=== PATIENT | male | born 1950 | race Caucasian/White ===

== ENCOUNTER 2020-08-20 11:57 | Day surgery (SDC) | payer MEDICARE, SELFPAY ==
[2020-08-13 15:03] VITALS: BMI 24.9
--- NOTE | 2020-08-19 08:27 | P.CONAN_ITS ---
Documented by User: Maliha Mark 08/19/20 08:28 HPI - Anesthesia Eval Consult details Narrative: 70yo M for Colonoscopy PMFSH Past Medical History Medical History Arthritis COVID-19 vaccine administered Elevated cholesterol History of trigeminal neuralgia HTN (hypertension) Hx of bipolar disorder Multiple sclerosis Surgical History Surgical History H/O colonoscopy History of surgery Hx of cataract surgery Hx of right knee surgery Social History Social History (Updated 08/20/20 @ 12:32 by Cece Cancino) Housing Other:: lives in skilled nursing community Are you a primary wound care specialist to a significant other at home: No Do you presently have visiting nurse or other home services: No Smoking Status: Current every day smoker Packs Per Day: 1 Cigarettes Per Day: 20.0 Years Smoked: 50 Smoked in Last 30 Days: Yes Use of substances other than those prescribed or required for medical reasons: No Have you been hit, kicked, punched, or otherwise hurt by someone within the past year? If so, by whom?: No Advance Directives Information Provided: No Recently lost weight without trying: No Meds Allergies Allergy/AdvReac Type Severity Reaction Status Date / Time carbamazepine Allergy Intermediate purple rash Verified 08/20/20 12:16 Home Medications Medication Instructions Recorded Confirmed Last Taken Type cholecalciferol (vitamin D3) 125 mcg PO Q7D 08/13/20 08/13/20 Unknown History [Vitamin D3] divalproex [Depakote] 1,000 mg PO BEDTIME 08/13/20 08/13/20 Unknown History glatiramer [Glatopa] 20 mg SUBCUT DAILY 08/13/20 08/13/20 08/20/20 06:00 History lisinopril 20 mg PO BEDTIME 08/13/20 08/13/20 Unknown History oxcarbazepine 450 mg PO TID 08/13/20 08/13/20 08/20/20 06:00 History phenytoin sodium 100 mg PO BEDTIME 08/13/20 08/13/20 Unknown History pregabalin 150 mg PO TID 08/13/20 08/13/20 08/20/20 06:00 History quetiapine [Seroquel] 50 mg PO BEDTIME 08/13/20 08/13/20 Unknown History simvastatin 20 mg PO BEDTIME 08/13/20 08/13/20 Unknown History Exam Exam Date and Time: August 19, 2020 0827 Height,Weight and Vital Signs: Height 5 ft 4 in Weight 65.771 kg Assessment and Plan Assessment Anesthesia Assessment: Chart Reviewed Documented by User: Cece Cancino 08/20/20 12:36 [facility] Past Medical History Medical History Arthritis COVID-19 vaccine administered Elevated cholesterol History of trigeminal neuralgia HTN (hypertension) Hx of bipolar disorder Multiple sclerosis Family History Family history of problems with anesthesia: No Surgical History Surgical History H/O colonoscopy History of surgery Hx of cataract surgery Hx of right knee surgery History of Problems with Anesthesia: No Social History Social History (Updated 08/20/20 @ 12:32 by Cece Cancino) Housing Other:: lives in skilled nursing community Are you a primary wound care specialist to a significant other at home: No Do you presently have visiting nurse or other home services: No Smoking Status: Current every day smoker Packs Per Day: 1 Cigarettes Per Day: 20.0 Years Smoked: 50 Smoked in Last 30 Days: Yes Use of substances other than those prescribed or required for medical reasons: No Have you been hit, kicked, punched, or otherwise hurt by someone within the past year? If so, by whom?: No Advance Directives Information Provided: No Recently lost weight without trying: No Meds Allergies Allergy/AdvReac Type Severity Reaction Status Date / Time carbamazepine Allergy Intermediate purple rash Verified 08/20/20 12:16 Home Medications Medication Instructions Recorded Confirmed Last Taken Type cholecalciferol (vitamin D3) 125 mcg PO Q7D 08/13/20 08/13/20 Unknown History [Vitamin D3] divalproex [Depakote] 1,000 mg PO BEDTIME 08/13/20 08/13/20 Unknown History glatiramer [Glatopa] 20 mg SUBCUT DAILY 08/13/20 08/13/20 08/20/20 06:00 History lisinopril 20 mg PO BEDTIME 08/13/20 08/13/20 Unknown History oxcarbazepine 450 mg PO TID 08/13/20 08/13/20 08/20/20 06:00 History phenytoin sodium 100 mg PO BEDTIME 08/13/20 08/13/20 Unknown History pregabalin 150 mg PO TID 08/13/20 08/13/20 08/20/20 06:00 History quetiapine [Seroquel] 50 mg PO BEDTIME 08/13/20 08/13/20 Unknown History simvastatin 20 mg PO BEDTIME 08/13/20 08/13/20 Unknown History Exam Height,Weight and Vital Signs: Vital Signs Temp Pulse Resp BP Pulse Ox 08/20/20 12:17 96.9 F 68 18 164/98 H 97 Airway Mallampati Class: II TM Dist: >3cm Neck ROM: Full Heart: RRR Lungs: CTAB Assessment and Plan Assessment Anesthesia Assessment: Anesthesia Plan Discussed and Chart Reviewed Final Anesthetic Review NPO: Yes ASA Class: II Final Preanesthetic Review: No Changes in Pt Med Stat, Meds/Allgs Chart Reviewed, Consent Obtained/Reviewed and Anes Risks/Benef Reviewed Patient Risk: Intermediate Procedure Risk: Low Assessment/Block/Sedation in SS: Assess/Block/Sedation-SS Anesthetic Plan Anesthetic Plan: MAC: Disposition: Standard PACU
[2020-08-20 12:17] VITALS: BP 164/98; PULSE 68; RESP 18; TEMP 36.1; O2SAT 97
[2020-08-20] MEDS: Lactated Ringers 1,000 ML 100 ML IVCONT (12:34)
--- NOTE | 2020-08-20 13:00 | MHC.SHP ---
Pre-Procedural Eval Section A The patient is an INPATIENT: No Changes since office visit: No Cold of Flu in the past 2 weeks, No New Medical Problems, No Changes in Medication and No Patient answered all questions The History & Physical has been completed within 30 days and I have reviewed it.: Yes Section B Chief Complaint: screening Allergies: Allergies Allergy/AdvReac Type Severity Reaction Status Date / Time carbamazepine Allergy Intermediate purple rash Verified 08/20/20 12:16 Plan I have reviewed the history and physical and performed a pertinent physical examination on my patient. No changes have occurred unless specified.
--- NOTE | 2020-08-20 13:33 | PM.OP ---
Brief Operative Note Date of Service: 08/20/20 Pre-op diagnosis: screening Post-op diagnosis: same (colon polyps) Procedure: colonoscopy Surgeon: Sanju Colbert Anesthesia: MAC Estimated blood loss (mL): 5 Pathology: other (polyps x3) Condition: stable Disposition: PACU
[2020-08-20 13:41] VITALS: BP 108/57; PULSE 54; RESP 14; TEMP 36.2; O2SAT 96
[2020-08-20 13:58] VITALS: BP 147/75; PULSE 56; RESP 16; TEMP 36.6; O2SAT 96
--- NOTE | 2020-08-20 14:08 | OP_ITS ---
SURGEON: Sanju Colbert MD INDICATIONS: Colon cancer screening and prior history of adenomatous colon polyps. PREOPERATIVE DIAGNOSIS: POSTOPERATIVE DIAGNOSIS: PROCEDURE PERFORMED: Colonoscopy to the terminal ileum with biopsy. ESTIMATED BLOOD LOSS: COMPLICATIONS: ANESTHESIA: ASSISTANTS: SPECIMENS: MEDICATIONS: Monitored anesthesia care. DESCRIPTION OF PROCEDURE: History and physical performed. The risks and benefits of the procedure were explained to the patient. Informed consent was obtained. The patient was placed in left lateral decubitus position. A digital rectal exam was performed and was found to be normal. The Olympus pediatric video colonoscope was introduced into the rectum and advanced to the cecum without difficulty. The cecum was identified by transillumination, palpation, and identification of ileocecal valve. Examination was performed and the scope was removed. He tolerated the procedure well and was taken to recovery area in stable condition. FINDINGS: The terminal ileum was examined and appeared normal. The visualized colonic mucosa was normal. The quality of the prep was good. A total of 3 polyps measuring less than 5 mm were removed with biopsy forceps. Two were located in the cecum, one was at 50 cm. No other polyps were identified. There was mild sigmoid diverticulosis. Retroflexed examination was remarkable for moderate-sized internal hemorrhoids. IMPRESSION: Colon polyps. RECOMMENDATION: Follow up the biopsy results. MD EYAD Summers/MUNIRA / [id number]
== END 2020-08-20 13:00 | disposition home or self-care (01) ==
PROVIDERS: PCP Internal Medicine; Visit Provider Internal Medicine Gastroenterology
PROC: 0DJD8ZZ Inspection of Lower Intestinal Tract, Via Natural or Artificial Opening Endoscopic (ICD-10-PCS; CPT 45378; principal; 2020-08-20 13:00)
DX: Z12.11 Encounter for screening for malignant neoplasm of colon (principal); Z86.010 Personal history of colon polyps; D12.0 Benign neoplasm of cecum; D12.5 Benign neoplasm of sigmoid colon; K57.30 Diverticulosis of large intestine without perforation or abscess without bleeding; K64.8 Other hemorrhoids; G35 Multiple sclerosis; G50.0 Trigeminal neuralgia; I10 Essential (primary) hypertension; F31.9 Bipolar disorder, unspecified; F17.210 Nicotine dependence, cigarettes, uncomplicated; Z79.899 Other long term (current) drug therapy
CPT/HCPCS: 45380; 88305

== ENCOUNTER 2024-01-31 09:02 | Outpatient (AMB) | payer MEDICARE, SELFPAY ==
--- NOTE | 2024-01-31 09:06 | A.OFFVIS_ITS ---
Vital Signs 01/31/24 09:16 Height 5 ft 6 in Weight 119 lb BMI 19.2 BP 153/72 H Blood Pressure Location Rt radial Position Sitting Pulse 75 Intake Visit Reasons: Mass right upper lung Intake Note: Patient referred by pcp Dr. Arroyo for mass on anterior right upper lung lobe. Patient c/o: denies difficulty breathing, SOB. States smokes about half a pack of cigarettes a day. [place] CT: 01-23-2024. 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 Accompanied by: Noemy Minor friend Allergies carbamazepine Allergy (Intermediate, Verified 01/31/24 09:14) purple rash Medication List - Last Reconciled 01/31/24 by Sander Franco MD cholecalciferol (vitamin D3) (Vitamin D3) 125 mcg PO Q7D divalproex (Depakote) 1,000 mg PO BEDTIME glatiramer (Glatopa) 20 mg subcut DAILY lisinopril 20 mg PO BEDTIME oxcarbazepine 450 mg PO TID phenytoin sodium 100 mg PO BEDTIME pregabalin 150 mg PO TID quetiapine (Seroquel) 50 mg PO BEDTIME simvastatin 20 mg PO BEDTIME HPI Comments Details: Patient presents with his significant other for evaluation of recently diagnosed brain mass, right lung mass, mediastinal adenopathy, and adrenal mass on a CT scan at an outside facility. Patient has a longstanding history of over 60 years of a least 1/2-1 pack per day. He denies any chronic cough, hemoptysis, chest pain, wheezing. Patient's energy is somewhat diminished and he has lost 30 lb over the last year or so. His appetite is poor. Chart was reviewed and patient evaluated. Among other comorbidities, patient has had the diagnosis of multiple sclerosis for approximately 6 years. [facility] Medical History COVID-19 vaccine administered Arthritis History of trigeminal neuralgia Hx of bipolar disorder Multiple sclerosis Elevated cholesterol HTN (hypertension) Surgical History History of surgery H/O colonoscopy Hx of cataract surgery Hx of right knee surgery Social History Housing Other:: lives in snf community Are you a primary career coordinator to a significant other at home: No Do you presently have visiting nurse or other home services: No Cigarette Packs Per Day: 1 Cigarettes Per Day: 20.0 Years Smoked: 50 Physical Exam Vital Signs: Last Vital Signs Pulse 75 01/31/24 09:16 BP 153/72 H 01/31/24 09:16 BMI result Body Mass Index 19.2 Const Other: Thin male using cane for assistance in no acute respiratory distress. HEENT Other: No obvious cervical periclavicular or axillary adenopathy bilaterally. Chest Other: Chest breath sounds bilaterally, consistent with COPD. GI Other: Abdomen is soft, benign Assessment & Plan Assessment & Plan (1) Adrenal mass: Code(s): E27.8 - Other specified disorders of adrenal gland Category: Surgical Plan: Patient is unaware of his CT scan findings. I discussed the concern at the lung mass may be a neoplastic process which may have metastasized. With his significant smoking history, this is within the realm of possibilities. The current plan is to arrange for a CT-guided biopsy of the right lung mass as well as a PET scan for staging purposes.. Patient will see me after the above-mentioned interventions and studies and we will direct further therapy based on these results. All questions answered. In the meantime, Patient is strongly encouraged to discontinue his smoking. (2) Brain mass: Code(s): G93.89 - Other specified disorders of brain Category: Surgical Plan: As noted above (3) Mass of right lung: Code(s): R91.8 - Other nonspecific abnormal finding of lung field Category: Surgical Plan: As noted above (4) Mediastinal adenopathy: Code(s): R59.0 - Localized enlarged lymph nodes Category: Surgical Plan See above Orders: Orders CT biopsy lung RT Today E27.8 - Other specified disorders of adrenal gland, G93.89 - Other specified disorders of brain, R91.8 - Other nonspecific abnormal finding of lung field PET CT fusion skull to thigh Today E27.8 - Other specified disorders of adrenal gland, G93.89 - Other specified disorders of brain, R91.8 - Other nonspecific abnormal finding of lung field Coding Level of Care Code New Pt Level 4 (76352) Diagnoses Adrenal mass E27.8 Brain mass G93.89 Mass of right lung R91.8 Mediastinal adenopathy R59.0
[2024-01-31 09:16] VITALS: BP 153/72; PULSE 75; BMI 19.2
== END 2024-01-31 09:33 | disposition home or self-care (01) ==
PROVIDERS: PCP Internal Medicine; Referring Provider Internal Medicine; Visit Provider Surgery
DX: E27.8 Other specified disorders of adrenal gland (principal); G93.89 Other specified disorders of brain; R91.8 Other nonspecific abnormal finding of lung field; R59.0 Localized enlarged lymph nodes
CPT/HCPCS: 99204

== ENCOUNTER → 2024-01-31 09:02 | Outpatient (BNVA) | payer MEDICARE, SELFPAY | PROVIDERS: PCP Internal Medicine; Referring Provider Internal Medicine; Visit Provider Surgery | DX: E27.8 Other specified disorders of adrenal gland (principal); G93.89 Other specified disorders of brain; R91.8 Other nonspecific abnormal finding of lung field; R59.0 Localized enlarged lymph nodes | CPT/HCPCS: 99202 ==

== ENCOUNTER 2024-02-02 08:45 | Outpatient (REF) | payer MEDICARE, SELFPAY | END 2024-02-02 08:46 | disposition home or self-care (01) | LOC: CF 08:45 | DX: Z13.89 Encounter for screening for other disorder (principal) ==

== ENCOUNTER 2024-02-13 08:13 | Day surgery (SDC) | payer MEDICARE, SELFPAY ==
[2024-02-13] VITALS (9 sets, daily range): BP systolic 128–143; BP diastolic 62–69; PULSE 51–63; RESP 16–18; TEMP 36.5–36.6; O2SAT 98–100; BMI 19.0
--- NOTE | ~2024-02-13 | CT_ITS ---
PET avid right upper lobe lung mass. Current smoker. PROCEDURES: 1. Limited preprocedure CT of the chest. Permanent images saved in PACS. 2. CT-guided core biopsy and fine-needle aspiration of the right lung mass. 3. Limited postprocedure CT of the chest. Permanent images saved in PACS. CLINICIANS: Catrachito Thomas PA-C MEDICATIONS: -Versed 1 mg, Fentanyl 50 mcg, and lidocaine 1% 10 mL SQ -Antibiotics: None -For additional details, please see nursing flowsheet. COMPLICATIONS: None ESTIMATED BLOOD LOSS: < 5 ml CONTRAST: None SPECIMENS: 4 x 20 g cores were sent for pathology. 22-gauge fine needle aspiration was sent for cytology. MODERATE SEDATION TIME: 21 min PROCEDURE NOTE: The procedure, risks, benefits, and alternatives were carefully explained to the patient and written informed consent was obtained. The patient was placed supine on the CT table. A timeout was performed. A limited CT of the chest was performed to localize the right lung mass and choose appropriate needle entry and trajectory. The patient was prepped and draped in usual sterile fashion. The skin and deeper soft tissues were anesthetized with lidocaine. Under CT guidance, a19 gague trocar needle was advanced to the right lung mass. A 20 gauge biopsy device was inserted through the trocar needle and advanced into the mass. A total of 4 cores were performed. The specimens were placed in formalin and sent to pathology. Next, a 22-gauge Chiba needle was inserted through the trocar needle and advanced into the mass and an aspiration was performed. The needle was removed. A dry dressing was applied and secured with Tegaderm. A limited postprocedure CT of the chest was performed, which did not demonstrate any pneumothorax or hemothorax. There were no immediate complications. The patient was stable after the procedure and was transferred to the post anesthesia care unit. The procedure was done under moderate sedation with a dedicated nurse for monitoring of vital signs. CT/CT biopsy lung RT Impression: CT-guided right lung mass biopsy and fine-needle aspiration. This procedure was performed by Catrachito Thomas PA-C and supervised by Dr. Davis. Electronically signed by: Kristofer Claire MD 02/22/2024 02:38 PM EDT
--- NOTE | ~2024-02-13 | XR_ITS ---
EXAMINATION: XR CHEST CLINICAL INFORMATION: 1 hour status post right lung biopsy of right lung mass. COMPARISON: CT outside images of 01/23/2024. TECHNIQUE: Frontal view of the chest was obtained and time stamped 02/13/2024 11:51 AM. FINDINGS: There is no gross pneumothorax. Lung volumes are low. Asymmetric elevation of the left lung base. Heart size is normal. No gross pleural effusion. Prominent right upper perihilar opacity/mass is better characterized on CT scan. XR/XR chest 1V IMPRESSION: 1. No gross pneumothorax. 2. Prominent right upper perihilar opacity/mass is better characterized on CT scan. Electronically signed by: Ely Stone MD 04/04/2024 01:02 PM [facility]
--- NOTE | ~2024-02-13 | XR_ITS ---
EXAMINATION: XR CHEST CLINICAL INFORMATION: 1 hour status post right lung biopsy of right lung mass. COMPARISON: CT outside images of 01/23/2024, chest radiograph of 02/13/2024 at 11:51 AM. TECHNIQUE: Frontal view of the chest was obtained and time stamped 02/13/2024 12:53 PM. FINDINGS: There is no gross pneumothorax. Lung volumes are low. Asymmetric elevation of the left lung base. Heart size is normal. No gross pleural effusion. Prominent right upper perihilar opacity/mass is better characterized on CT scan. XR/XR chest 1V IMPRESSION: 1. No gross pneumothorax. 2. Prominent right upper perihilar opacity/mass is better characterized on CT scan. Electronically signed by: Ely Stone MD 04/04/2024 02:05 PM [facility]
[2024-02-13 08:57] LABS: MANUAL DIFF FLAG NO
[2024-02-13 09:04] LABS: Basophils Absolute Auto 0.1 X10*3/uL (0.0-0.2); Basophils Percent Auto 0.7 % (0-2); Eosinophils Absolute Auto 0.1 X10*3/uL (0.0-0.4); Hematocrit 42.3 % (42.0-52.0); Hemoglobin 14.6 g/dl (14.0-18.0); Imm Gran Abs Auto 0.03 X10*3/uL (0.00-0.03); Imm Gran Pct Auto 0.4 % (0.0-0.4); Lymphocytes Absolute Auto 2.2 X10*3/uL (1.2-4.9); Lymphocytes Percent Auto 28.3 % (20-40); Mean Corpuscular HGB Conc 34.5 g/dl (31.0-36.0); Mean Corpuscular Hemoglobin 34.6 pg (27.0-33.0); Mean Corpuscular Volume 100.2 fL (80.0-98.0); Mean Platelet Volume 10.7 fL (9.4-12.4); Monocytes Absolute Auto 0.8 X10*3/uL (0.1-1.2); Monocytes Percent Auto 10.3 % (2-11); Neutrophils Absolute Auto 4.6 x10*3/uL (2.0-8.3); Neutrophils Percent Auto 59.3 % (45-73); Platelet Count 116 X10*3/uL (160-400); Red Blood Count 4.22 X10*6/uL (4.60-5.80); White Blood Count 7.7 X10*3/uL (4.8-10.8)
[2024-02-13 09:08] LABS: INTERNATIONAL NORM RATIO 0.9 (0.9-1.1); Prothrombin Time 11.1 SEC (11.1-13.3)
[2024-02-13 09:11] LABS: Partial Thromboplastin Time 24.2 SEC (26.0-36.8)
--- NOTE | 2024-02-13 10:25 | MHC.SHP ---
Pre-Procedural Eval Section A - 24 Hr Update-Section A only Date of Service: 02/13/24 Section B - Complete if H&P > 30 days Chief Complaint: right upper lobe mass Details of Present Illness: 73 y/o man with a PET avid RUL lung mass Relevant Family History (Specify if Yes): No Relevant Social History: Tobacco Use Present Medications: see Short Stay Collaborative assessment Medical History: Significant History History of Previous Operations: Relevant previous surgery/procedure and date(s) Allergies: Allergies Allergy/AdvReac Type Severity Reaction Status Date / Time carbamazepine Allergy Intermediate purple rash Verified 01/31/24 09:14 Review of Systems Sugical H&P ROS: Negative: Constitution, Cardiovascular, Respiratory and Integumentary Exam Surgical H&P Exam: Normal: Skin and Normal: Neurological and Significant Findings: Heart (bradycardic) and Significant Findings: Lungs (mild expiratory wheezes) Plan CT right lung mass biopsy Time Spent With Patient Time: Total time managing care of this patient today ____ minutes.
== END 2024-02-13 13:16 | disposition home or self-care (01) ==
PROVIDERS: Physician Assistant Surgical; Radiology Vascular & Interventional Radiology; PCP Internal Medicine; Visit Provider Surgery
DX: C7A.1 Malignant poorly differentiated neuroendocrine tumors (principal); C34.11 Malignant neoplasm of upper lobe, right bronchus or lung; R59.0 Localized enlarged lymph nodes; G93.89 Other specified disorders of brain; E27.8 Other specified disorders of adrenal gland; R63.0 Anorexia; R63.4 Abnormal weight loss; Z68.1 Body mass index [BMI] 19.9 or less, adult; R53.83 Other fatigue; G35 Multiple sclerosis; G50.0 Trigeminal neuralgia; I10 Essential (primary) hypertension; E78.00 Pure hypercholesterolemia, unspecified; M19.90 Unspecified osteoarthritis, unspecified site; F31.9 Bipolar disorder, unspecified; Z79.899 Other long term (current) drug therapy; Z99.89 Dependence on other enabling machines and devices; Z88.8 Allergy status to other drugs, medicaments and biological substances; F17.210 Nicotine dependence, cigarettes, uncomplicated; Z98.890 Other specified postprocedural states
CPT/HCPCS: 32408; 36415; 71045; 85025; 85610; 85730; 88173; 88305; 88341; 88342; 99152; J2250; J2310; J3010

== ENCOUNTER → 2024-02-13 09:57 | Outpatient (BNV) | payer MEDICARE, SELFPAY | PROVIDERS: PCP Internal Medicine; Visit Provider Radiology Vascular & Interventional Radiology | DX: Z00.00 Encounter for general adult medical examination without abnormal findings (principal) | CPT/HCPCS: 10009; 32408; 99152 ==

== ENCOUNTER 2024-02-15 10:43 | Outpatient (AMB) | payer MEDICARE, SELFPAY ==
[2024-02-15 10:48] VITALS: BP 144/88; PULSE 64
--- NOTE | 2024-02-15 10:48 | MHC.OFFVIS ---
Vital Signs 02/15/24 10:48 Weight 118 lb BP 144/88 H Blood Pressure Location Rt brachial Position Sitting Pulse 64 Intake Visit Reasons: s/p CT lung BX Intake Note: Patient here to discuss Rt upper lobe CT guided bx results. Patient c/o: tenderness on rt upper chest along bx site. Manager Transportation Planning Required: No Accompanied by: Self / Same As Patient Allergies carbamazepine Allergy (Intermediate, Verified 02/15/24 10:49) purple rash Medication List - Last Reconciled 02/15/24 by Sander Franco MD cholecalciferol (vitamin D3) (Vitamin D3) 125 mcg PO Q7D divalproex (Depakote) 1,000 mg PO BEDTIME glatiramer (Glatopa) 20 mg subcut DAILY lisinopril 20 mg PO BEDTIME oxcarbazepine 450 mg PO TID phenytoin sodium 100 mg PO BEDTIME pregabalin 150 mg PO TID quetiapine (Seroquel) 50 mg PO BEDTIME simvastatin 20 mg PO BEDTIME HPI Comments Details: Patient was status post right upper lobe lung biopsy which was consistent with a [id number] lung cancer. This was discussed with the patient. Patient also had a PET scan which was reviewed with him. Patient had an MRI of the brain at [facility] which we are trying to obtained. According to the patient he had some sort of brain lesion but this did not light up on his PET scan. Patient has a question of mediastinal adenopathy and a left adrenal area of suspicion as well. He has not had pulmonary function tests yet [facility] Medical History (Updated 02/03/24 @ 09:04 by Lakisha Carrizales PA-C) Multiple sclerosis Hx of bipolar disorder History of trigeminal neuralgia HTN (hypertension) Elevated cholesterol Arthritis Nicotine dependence, cigarettes, uncomplicated Tubular adenoma of colon COVID-19 vaccine administered Surgical History (Updated 02/03/24 @ 12:39 by Lakisha Carrizales PA-C) History of colonoscopy History of surgery Hx of cataract surgery Hx of right knee surgery Social History Housing Other:: lives in [facility] community Are you a primary home care consultant to a significant other at home: No Do you presently have visiting nurse or other home services: No Cigarette Packs Per Day: 1 Cigarettes Per Day: 20.0 Years Smoked: 50 Physical Exam Vital Signs: Last Vital Signs Pulse 64 02/15/24 10:48 BP 144/88 H 02/15/24 10:48 Chest Other: Status quo Assessment & Plan Assessment & Plan (1) Mass of right lung: Comment: (mass RUL 3.1x2.2cm - 01/23/24 CT) Code(s): R91.8 - Other nonspecific abnormal finding of lung field Category: Surgical Plan: Current plan is to refer the patient to Oncology as well as obtaining baseline pulmonary function test. I will also present the patient at our lung cancer screening conference for next week (02/23) Orders: Orders PFT pulmonary function test Today R91.8 - Other nonspecific abnormal finding of lung field Coding Level of Care Code Est Pt Level 5 (36373) Diagnoses Mass of right lung R91.8
== END 2024-02-15 10:56 | disposition home or self-care (01) ==
PROVIDERS: PCP Internal Medicine; Visit Provider Surgery
DX: C34.11 Malignant neoplasm of upper lobe, right bronchus or lung (principal)
CPT/HCPCS: 99215

== ENCOUNTER → 2024-02-15 10:43 | Outpatient (BNVA) | payer MEDICARE, SELFPAY | PROVIDERS: PCP Internal Medicine; Visit Provider Surgery | DX: R91.8 Other nonspecific abnormal finding of lung field (principal) | CPT/HCPCS: 99212 ==

== ENCOUNTER → 2024-02-20 10:54 | Outpatient (BNV) | payer MEDICARE, SELFPAY | PROVIDERS: PCP Internal Medicine; Referring Provider Surgery; Visit Provider Internal Medicine Medical Oncology | DX: C34.90 Malignant neoplasm of unspecified part of unspecified bronchus or lung (principal); C79.31 Secondary malignant neoplasm of brain | CPT/HCPCS: 99213 ==

== ENCOUNTER 2024-02-24 13:36 | Outpatient (REF) | payer MEDICARE, SELFPAY ==
--- NOTE | ~2024-02-24 | MR_ITS ---
EXAMINATION: MR BRAIN WITHOUT AND WITH CONTRAST CLINICAL INFORMATION: Lung carcinoma. Intracranial metastatic disease. COMPARISON: No relevant prior imaging. TECHNIQUE: Multiplanar MR imaging of the brain was performed without and with contrast. A total of 5 mL Gadavist was utilized for this examination. FINDINGS: There are multiple ring-enhancing intracranial masses most likely represent metastatic disease in a patient with a known history of a lung carcinoma. There is a small right retromastoid craniotomy site suggesting a history of recent biopsy. The dominant intraparenchymal cystic mass is located within the right cerebellar hemisphere measuring 1.8 cm in diameter. Best visualized on axial image 51 of 176 series 16. The second dominant lesion located within the left periatrial white matter best visualized on axial image 88 and same series measures 1.0 cm in diameter. A right thalamic lesion measures up to 0.9 cm in maximal dimension on axial image 103 of the same series. There are at least 7 additional much smaller and faintly enhancing nodular lesions involving both cerebral hemispheres and cerebellum. There is no substantial intracranial mass effect. No midline shift or hydrocephalus. Midline structures including the cervicomedullary junction are normal. No acute bone marrow signal changes. There is no acute territorial infarct. Intracranial vascular flow voids are grossly maintained. There is a trace right mastoid tip effusion. Trivial mucosal thickening within the abdomen recess of the left maxillary sinus and mild mucosal thickening within the ethmoid air cells. Globes and orbits are symmetric. MR/MR head/brain wo/w con IMPRESSION: There are multiple ring-enhancing intracranial masses most likely representing metastatic disease in a patient with a known history of a lung carcinoma. The dominant lesion is located within the right cerebellar hemisphere measuring 1.8 cm in maximal dimension. The second dominant lesion located within the left periatrial white matter measures 1.0 cm in maximal dimension. A right thalamic lesion measures up to 0.9 cm in maximal dimension. There are at least 7 additional much smaller and faintly enhancing nodular lesions involving both cerebral hemispheres and cerebellum. There are chronic postoperative changes of a right retromastoid craniotomy, potentially related to a biopsy of the dominant right cerebellar mass. Comparison with prior imaging is therefore recommended if available to assess the stability of these lesions. No substantial intracranial mass effect. No midline shift or hydrocephalus. Electronically signed by: Markie Abreu MD 02/24/2024 04:05 PM EDT RP
[2024-02-24] MEDS: gadobutroL 7.5 ML VIAL IVPUSH (14:25)
== END 2024-02-24 13:37 | disposition home or self-care (01) ==
LOC: HO.MRI 13:36
PROVIDERS: PCP Internal Medicine; Visit Provider Internal Medicine Medical Oncology
DX: C79.31 Secondary malignant neoplasm of brain (principal); C34.90 Malignant neoplasm of unspecified part of unspecified bronchus or lung
CPT/HCPCS: 70553; A9585

== ENCOUNTER 2024-03-28 12:22 | Outpatient (REF) | payer MEDICARE, SELFPAY ==
[2024-03-28 10:08] VITALS: PULSE 94; RESP 16; O2SAT 98
--- NOTE | 2024-03-28 13:34 | PFT_ITS ---
Indication: Smoker Spirometry [] FEV1 to FVC in 2%; FEV1 2.33 L; FVC 2.4 L. bronchodilators were not used. Lung Volumes [Unable to achieve maneuvers to perform the lung volumes.] Diffusion Capacity [DLCO 71% predicted] Comparisons [None] Interpretation [No obstructive ventilatory defects. Bronchodilators again were not used. Lung volumes could not be measured. Diffusing capacity is mildly decreased. Could be related to smoking-related diseases. Clinical correlation warranted.] MTDD
== END 2024-03-28 12:23 | disposition home or self-care (01) ==
LOC: HO.RESP 12:22
PROVIDERS: PCP Internal Medicine; Visit Provider Surgery
DX: R91.8 Other nonspecific abnormal finding of lung field (principal)
CPT/HCPCS: 94010; 94640; 94727; 94729

== ENCOUNTER → 2024-03-28 13:34 | Outpatient (BNV) | payer MEDICARE, SELFPAY | PROVIDERS: PCP Internal Medicine; Visit Provider Hospitalist | DX: C34.90 Malignant neoplasm of unspecified part of unspecified bronchus or lung (principal); F17.210 Nicotine dependence, cigarettes, uncomplicated | CPT/HCPCS: 94060; 94729 ==

== ENCOUNTER 2024-05-08 14:00 | Outpatient (REF) | payer MEDICARE, SELFPAY ==
--- NOTE | ~2024-05-08 | CT_ITS ---
EXAMINATION: CT CHEST WITH CONTRAST CLINICAL INFORMATION: Non-small cell lung carcinoma evaluation COMPARISON: 02/13/2024 TECHNIQUE: Multidetector volumetric CT imaging of the chest was obtained after the administration of 65 mL of Omnipaque 350 intravenous contrast without immediate adverse reactions. Axial MIP volume rendering provided. Sagittal and coronal reformatted images were obtained. This CT examination was performed using dose optimization techniques as appropriate, variously including the following: *Automated exposure control *Adjustment of mA and/or kV according to patient size (this includes techniques or standardized protocols for targeted exams where dose is matched to indication/reason for exam; i.e. extremities or head) *Use of iterative reconstruction technique DLP: 73 mGy-cm FINDINGS: CASINO SHIFT MANAGER: Unremarkable LUNGS: Stellate right upper lobe mass extending to the anterior pleural surface measuring 31 x 18 x 26 mm (10/12) with adjacent reticulation and fibrotic change is stable. There is extensive emphysematous change with peripheral bleb formation unchanged. No pneumothorax. No new consolidations. There is a tiny element of nodular scarring or a calcific nodularity in the peripheral mid right lung. No change. MEDIASTINUM: There is normal contrast enhancement in the great vessels of the mediastinum. No pericardial effusion. All mediastinal nodes measuring up to 14 mm particularly in the precarinal space are stable. Moderate coronary artery calcification again seen. PLEURA: There is no pleural effusion. No pleural mass or thickening. AXILLA: No lymphadenopathy. UPPER ABDOMEN: Hepatic steatosis. No change. There is a prominent left adrenal mass. This has increased in size from 01/23/2024. Today the mass measures 26 x 28 mm, and at a similar location and level, did measure 10 x 13 mm. In addition, there is a subtle low density lesion projecting off the superior right kidney at 7 mm not appreciated on the prior study. This could be a small right adrenal lesion off the inferior tail of the right adrenal with extrinsic mass effect on the superior right kidney. It should be followed. Simple cyst in the left kidney and spleen are stable. OSSEOUS STRUCTURES: The thoracic spine is kyphotic with spondylitic change. Sternum intact. No destructive lesions. CT/CT chest w IV con IMPRESSION: Though the dominant right upper lobe mass is stable, there is an enlarging left adrenal mass with a possible small right adrenal metastasis is also suspicious for metastases. I believe a PET/CT would be helpful in this case. Fleischner guidelines were followed. Electronically signed by: Trenton Shannon MD 05/09/2024 03:29 PM TITI NICOLE
[2024-05-08] MEDS: iohexoL 350 MG/ML 100 ML INFUS..BTL IV (14:54)
--- OUTSIDE RECORDS SUMMARY | 2024-05-09 21:53 | XMS_ITS ---
Author Organization [facility] Address [address] [place] [address] Care Team Providers Care Soap Tender Name Role Phone Markie Arroyo DO Primary Care Provider Unavail able Sanju Colbert Jr Unavailable REASON FOR VISIT Patient presents today for a screening colon Encounters Encounter Location Date Provider Diagnosis [facility] [address] [place] [address] 02/27/2024 Sanju Colbert Jr PLAN OF TREATMENT No Information
--- OUTSIDE RECORDS SUMMARY | 2024-05-09 21:53 | XMS_ITS ---
Author Organization Markie Arroyo DO, FACP Address [address] [place], [place] [id number] Care Team Providers Care Senior Licensing Manager Name Role Phone Markie Arroyo Primary Care Provider [phone] ALLERGIES Allergen (clinical drug ingredient) Drug/Non Drug Allergy documented on EMR Reaction Allergy Type Onset Date Status carbamazepine Carbamazepine rash Drug Allergy Active REASON FOR VISIT Follow up Malignant neoplasm of upper lobe of right lung MEDICATIONS Medication SIG (Take, Route, Frequency, Duration) Notes Start Date End Date Status Simvastatin 20 MG 1 tablet in the even ing Orally Once a day Active QUEtiapine Fumarate 50 MG 1 tablet at be dtime Orally Once a day 11/15/2023 Active Divalproex Sodium 500 MG 2 tablets at be dtime Orally Once a day Active Glatopa 20 MG/ML 1 ml Subcutaneous On ce a day Active Vitamin D (Ergocalciferol) 57882 UNIT 1 capsule Orally Once a Week Active SOCIAL HISTORY Tobacco Use: Social History Observation Description Date Details (start date - stop date) Current Smoker NA - NA Sex Assigned At : Social History Observation Description Sex Assigned At Unknown Tobacco Use/Smoking Question Answer Notes Patient is a current smoker How often do you smoke cigarettes? every day How many cigarettes a day do you smoke? 5 or les s How soon after you wake up d o you smoke your first cigarette? after 60 minutes Are you interested in quitting? Ready to quit Additional Findings: Tobacco User Curren t cigarette smoker, not currently using another form of tobacco Alcohol Screen Question Answer Notes Did you have a drink containing alcohol in the p ast year? No Points 0 Interpretation Negative VITAL SIGNS BMI 21.42 kg/m2 04/13/2024 Height 62.75 in 04/13/2024 Weight 120 lbs 04/13/2024 Encounters Encounter Location Date Provider Diagnosis Markie Arroyo , FACP [address], [place] [id number] 04/13/2024 Markie Arroyo Malignant neoplasm o f upper lobe of right lung C34.11 ; Hypercholesterolemia E78.00 ; Vitamin D deficiency E55.9 ; Bipolar disorder, in full remission, most recent episode depressed F31.76 and Multiple sclerosis G35 ASSESSMENTS Encounter Date Diagnosis Assessment Notes Treatment Notes Treatment Clinical Notes 04/13/2024 Malignant neoplasm o f upper lobe of right lung (ICD-10 - C34.11) Follow up with Oncology. Agustín is drinking 2 cans of Ensure a day. 04/13/2024 Hypercholesterolemia (ICD-10 - E78.00) 04/13/2024 Vitamin D deficiency (ICD-10 - E55.9) 04/13/2024 Bipolar disorder, in full remission, most recent episode depressed (ICD-10 - F31.76) 04/13/2024 Multiple sclerosis ( ICD-10 - G35) PLAN OF TREATMENT Medication Medication Name Sig Start Date Stop Date Notes Simvastatin 20 MG 1 tablet in the even ing Orally Once a day QUEtiapine Fumarate 50 MG 1 tablet at be dtime Orally Once a day 11/15/2023 Divalproex Sodium 500 MG 2 tablets at be dtime Orally Once a day Glatopa 20 MG/ML 1 ml Subcutaneous Once a day Vitamin D (Ergocalciferol) 43654 UNIT 1 capsule Orally Once a Week Treatment Notes Assessment Notes Malignant neoplasm of upper lobe of right lung Follow up with Oncology. Agustín is drinking 2 cans of Ensure a day. Next Appt Details Follow Up: 3 Months, Reason: follow up visit Provider Name:Markie bautista, 07/11/2024 09:45:00 AM, [address] [place] [address], [phone], Progress Notes * Examination Category Sub-Category Detail Notes General Examination PSYCH: alert, orien navjot, cognitive function intact History and Physical Notes * HPI (History of Present Illness) Category Sub-Category Detail Notes New symptom(s) Telehealth Location of provider:: Pro vider's home address Location of patient:: Address listed in demographics for today's visit Patient identification confirmed using:: Name, Telehealth method:: Telephone only. Elizabeth ent not visible to care provider. Consent:: Patient verbally c onsented to treatment, Patient verbally consented to billing insurance company, Patient informed of any privacy concerns related to method of visit Total time spent with patient (mins): 24 Disclaimer: This Telehealth visit is being conducted per CDC recommendations due to the COVID-19 outbreak.
--- OUTSIDE RECORDS SUMMARY | 2024-05-09 21:53 | XMS_ITS | Patient Health Record ---
Author Organization Markie Arroyo DO, FACP Address [address] [place], [place] [id number] Care Team Providers Care Nutrition Coordinator Name Role Phone Markie Arroyo Primary Care Provider [phone] ALLERGIES Allergen (clinical drug ingredient) Drug/Non Drug Allergy documented on EMR Reaction Allergy Type Onset Date Status carbamazepine Carbamazepine rash Drug Allergy Active RESULTS Component Value Reference Range Notes Complete Blood Count Auto Di ff Reviewed date:02/13/2024 09:57:09 AM Interpretation:Abnormal Performing Lab:[facility], [address] [place] [phone] Notes/Report: White Blood Count 7.7 4.8-10.8 X10*3/uL Red Blood Count 4.22 4.60-5.80 X10*6/uL Hemoglobin 14.6 14.0-18.0 g/dl Hematocrit 42.3 42.0-52.0 % Mean Corpuscular Volume 100.2 80.0-98.0 fL Mean Corpuscular Hemoglobin 34.6 27.0-33.0 pg Mean Corpuscular HGB Conc 34.5 31.0-36.0 g/dl Red Cell Distribution Width 14.0 11.0-16.0 % Platelet Count 116 160-400 X10*3/uL Mean Platelet Volume 10.7 9.4-12.4 fL Neutrophils Percent Auto 59.3 45-73 % Imm Gran Pct Auto 0.4 0.0-0.4 % Lymphocytes Percent Auto 28.3 20-40 % Monocytes Percent Auto 10.3 2-11 % Eosinophils Percent Auto 1.0 0-4 % Basophils Percent Auto 0.7 0-2 % NRBC Pct Auto 0.0 0.0-0.2 /100WBC Neutrophils Absolute Auto 4.6 2.0-8.3 x10*3/u L Imm Gran Abs Auto 0.03 0.00-0.03 X10*3/uL Lymphocytes Absolute Auto 2.2 1.2-4.9 X10*3/u L Monocytes Absolute Auto 0.8 0.1-1.2 X10*3/uL Eosinophils Absolute Auto 0.1 0.0-0.4 X10*3/u L Basophils Absolute Auto 0.1 0.0-0.2 X10*3/uL NRBC Abs Auto 0.000 0.0-0.012 X10*3/uL Prothrombin Time INR Reviewed date:02/13/2024 09:57:09 AM Interpretation:Normal Performing Lab:[facility], [address] [place] [phone] Notes/Report: Prothrombin Time 11.1 11.1-13.3 SEC INTERNATIONAL NORM RATIO 0.9 0.9-1.1 INTERNATIONAL NORMALIZED RATIO (INR) REFERENCE RANGES Reference Range For patients not on anticoagulant therapy: 0.9 - 1.1 INR ranges for oral anticoagulant therapy: For prevention and treatment of venous thrombosis and pulmonary embolism: 2.0 - 3.0 For acute myocardial infarction with aspirin therapy: 2.0 - 3.0 For acute myocardial infarction without aspirin therapy: 3.0 - 4.0 For patients with mechanical prosthetic heart valves: 2.5 - 3.5 Partial Thromboplastin Time Reviewed date:02/13/2024 09:57:09 AM Interpretation:Low Performing Lab:[facility], [address] [place] [phone] Notes/Report: Partial Thromboplastin Time 24.2 26.0-36.8 SEC For information regarding the monitoring of direct thrombin inhibitors, please refer to Pharmacy. Pathology Reviewed date:02/27/2024 08:39:24 PM Interpretation:Abnormal Performing Lab:[facility], [address] [place] [phone] Notes/Report: CT biopsy lung RT Reviewed date:04/23/2024 01:16:42 PM Interpretation:Abnormal Performing Lab: Notes/Report: [address] [address] [address] Scan Report Signed Patient: Zackery Duran MR#: [id number] 129 : 1950 Acct:[id number] Age/Sex: 73 / M ADM Date: 02/13/24 Loc: HO[facility] Attending Dr: Sander Franco MD Ordering Physician: Sander Franco MD Date of Service: 02/13/24 Procedure(s): CT biopsy lung RT Accession Number(s): [id number] cc: Markie Arroyo DO; Sander Franco MD PET avid right upper lobe lung mass. Current smoker. PROCEDURES: 1. Limited preprocedure CT of the chest. Permanent images saved in PACS. 2. CT-guided core biopsy and fine-needle aspiration of the right lung mass. 3. Limited postprocedure CT of the chest. Permanent images saved in PACS. CLINICIANS: Catrachito Thomas PA-C MEDICATIONS: -Versed 1 mg, Fentanyl 50 mcg, and lidocaine 1% 10 mL SQ -Antibiotics: None -For additional details, please see nursing flowsheet. COMPLICATIONS: None ESTIMATED BLOOD LOSS: < 5 ml CONTRAST: None SPECIMENS: 4 x 20 g cores were sent for pathology. 22-gauge fine needle aspiration was sent for cytology. MODERATE SEDATION TIME: 21 min PROCEDURE NOTE: The procedure, risks, benefits, and alternatives were carefully explained to the patient and written informed consent was obtained. The patient was placed supine on the CT table. A timeout was performed. A limited CT of the chest was performed to localize the right lung mass and choose appropriate needle entry and trajectory. The patient was prepped and draped in usual sterile fashion. The skin and deeper soft tissues were anesthetized with lidocaine. Under CT guidance, a19 gague trocar needle was advanced to the right lung mass. A 20 gauge biopsy device was inserted through the trocar needle and advanced into the mass. A total of 4 cores were performed. The specimens were placed in formalin and sent to pathology. Next, a 22-gauge Chiba needle was inserted through the trocar needle and advanced into the mass and an aspiration was performed. The needle was removed. A dry dressing was applied and secured with Tegaderm. A limited postprocedure CT of the chest was performed, which did not demonstrate any pneumothorax or hemothorax. There were no immediate complications. The patient was stable after the procedure and was transferred to the post anesthesia care unit. The procedure was done under moderate sedation with a dedicated nurse for monitoring of vital signs. CT/CT biopsy lung RT Impression: CT-guided right lung mass biopsy and fine-needle aspiration. This procedure was performed by Catrachito Thomas PA-C and supervised by Dr. Davis. Electronically signed by: Kristofer Claire MD 02/22/2024 02:38 PM EDT RP Dictated By: Kristofer Claire MD Signed By: <Electronically signed by Kristofer Claire MD> 04/23/24 1248 DD/ 1035 TD/TT: 02/13/24 [address] [employer] Supervisor: XR chest 1V Reviewed date:04/04/2024 05:24:36 PM Interpretation:Abnormal Performing Lab: Notes/Report: [address] [address] XRay Report Signed Patient: Zackery Duran MR#: [id number] 129 : 1950 Acct:[id number] Age/Sex: 73 / M ADM Date: 02/13/24 Loc: .[facility] Attending Dr: Sander Franco MD Ordering Physician: Catrachito Thomas Date of Service: 02/13/24 Procedure(s): XR chest 1V Accession Number(s): [id number] cc: Markie Arroyo DO; Catrachito Thomas EXAMINATION: XR CHEST CLINICAL INFORMATION: 1 hour status post right lung biopsy of right lung mass. COMPARISON: CT outside images of 01/23/2024. TECHNIQUE: Frontal view of the chest was obtained and time stamped 02/13/2024 11:51 AM. FINDINGS: There is no gross pneumothorax. Lung volumes are low. Asymmetric elevation of the left lung base. Heart size is normal. No gross pleural effusion. Prominent right upper perihilar opacity/mass is better characterized on CT scan. XR/XR chest 1V IMPRESSION: 1. No gross pneumothorax. 2. Prominent right upper perihilar opacity/mass is better characterized on CT scan. Electronically signed by: Ely Stone MD 04/04/2024 01:02 PM EST RP Dictated By: Ely Stone MD Signed By: <Electronically signed by Ely Stone MD in OV> 04/04/24 1302 DD/ 1155 TD/TT: 02/13/24 [address] [employer] Supervisor: Pathology Reviewed date:02/16/2024 06:47:16 PM Interpretation:Abnormal Performing Lab:[facility], [address] [place] [address] Notes/Report: XR chest 1V Reviewed date:04/04/2024 05:25:29 PM Interpretation:Abnormal Performing Lab: Notes/Report: [facility] [address] [place] [address] XRay Report Signed Patient: Zackery Duran MR#: [id number] 129 : 1950 Acct:[id number] Age/Sex: 73 / M ADM Date: 02/13/24 Loc: .[facility] Attending Dr: Sander Franco MD Ordering Physician: Catrachito Thomas Date of Service: 02/13/24 Procedure(s): XR chest 1V Accession Number(s): [id number] cc: Markie Arroyo DO; Catrachito Thomas EXAMINATION: XR CHEST CLINICAL INFORMATION: 1 hour status post right lung biopsy of right lung mass. COMPARISON: CT outside images of 01/23/2024, chest radiograph of 02/13/2024 at 11:51 AM. TECHNIQUE: Frontal view of the chest was obtained and time stamped 02/13/2024 12:53 PM. FINDINGS: There is no gross pneumothorax. Lung volumes are low. Asymmetric elevation of the left lung base. Heart size is normal. No gross pleural effusion. Prominent right upper perihilar opacity/mass is better characterized on CT scan. XR/XR chest 1V IMPRESSION: 1. No gross pneumothorax. 2. Prominent right upper perihilar opacity/mass is better characterized on CT scan. Electronically signed by: Ely Stone MD 04/04/2024 02:05 PM EST RP Dictated By: Ely Stone MD Signed By: <Electronically signed by Ely Stone MD in OV> 04/04/24 1405 DD/ 1300 TD/TT: 02/13/24 [address] Supervisor: Complete Blood Count Auto Di ff Reviewed date:02/20/2024 01:08:32 PM Interpretation:Abnormal Performing Lab:[facility], [address] [place] [phone] Notes/Report: White Blood Count 7.5 4.8-10.8 X10*3/uL Red Blood Count 4.42 4.60-5.80 X10*6/uL Hemoglobin 15.0 14.0-18.0 g/dl Hematocrit 44.0 42.0-52.0 % Mean Corpuscular Volume 99.5 80.0-98.0 fL Mean Corpuscular Hemoglobin 33.9 27.0-33.0 pg Mean Corpuscular HGB Conc 34.1 31.0-36.0 g/dl Red Cell Distribution Width 13.4 11.0-16.0 % Platelet Count 130 160-400 X10*3/uL Mean Platelet Volume 10.4 9.4-12.4 fL Neutrophils Percent Auto 65.7 45-73 % Imm Gran Pct Auto 0.3 0.0-0.4 % Lymphocytes Percent Auto 23.0 20-40 % Monocytes Percent Auto 10.1 2-11 % Eosinophils Percent Auto 0.4 0-4 % Basophils Percent Auto 0.5 0-2 % NRBC Pct Auto 0.0 0.0-0.2 /100WBC Neutrophils Absolute Auto 4.9 2.0-8.3 x10*3/u L Imm Gran Abs Auto 0.02 0.00-0.03 X10*3/uL Lymphocytes Absolute Auto 1.7 1.2-4.9 X10*3/u L Monocytes Absolute Auto 0.8 0.1-1.2 X10*3/uL Eosinophils Absolute Auto 0.0 0.0-0.4 X10*3/u L Basophils Absolute Auto 0.0 0.0-0.2 X10*3/uL NRBC Abs Auto 0.000 0.0-0.012 X10*3/uL Comprehensive Met. Panel Reviewed date:02/20/2024 01:08:32 PM Interpretation:Abnormal Performing Lab:[facility], [address] [place] [phone] Notes/Report: Sodium 141 135-145 mmol/L Potassium 5.4 3.3-5.1 mmol/L Chloride 111 96-108 mmol/L Carbon Dioxide 27 22-29 mmol/L Anion Gap 8 12-20 Blood Urea Nitrogen 14 9-16 mg/dL Creatinine 0.83 0.5-1.4 mg/dL Creatinine Clr Calc Pharmacy 61.9 eGFR (calculated from the MDRD study equation) and eCrCl (calculated from the Cockcroft-Gault equation) are based on different parameters and may not yield comparable results. If eCrCl result is absurd, please check patient's height/weight. Estimated Glomerular Filt Rate > 60 NOTE: For -Niue[place] individuals, multiply the result by 1.210. Chronic Kidney Disease: Estimated GFR < 60 mL/min/1.73m2 Severe Kidney Disease: Estimated GFR < 15 mL/min/1.73m2 Glucose Random 106 60-115 mg/dL Calcium 9.3 8.4-10.2 mg/dL Bilirubin Total 0.6 0.0-1.0 mg/dL Aspartate Amino Transferase 24 5-37 U/L Alanine Aminotransferase 18 0-40 U/L Total Protein 6.6 6.5-8.0 g/dL Albumin Level 3.7 3.5-5.0 g/dL Alkaline Phosphatase 60 39-117 U/L Lactate Dehydrogenase Reviewed date:02/20/2024 01:08:32 PM Interpretation:Normal Performing Lab:[facility], [address] [place] [phone] Notes/Report: Lactate Dehydrogenase 172 118-273 U/L Carcinoembryonic Antigen Reviewed date:02/20/2024 01:08:32 PM Interpretation:Normal Performing Lab:[facility], [address] [place] [phone] Notes/Report: Carcinoembryonic Antigen 2.50 CEA Reference Range: 93.4% Non-Smokers = 0.0-3.0 ng/mL 95.6% Smokers = 0.0-5.0 ng/mL CEA Methodology: Thao Alinity i Chemiluminescent Microparticle Immunoassay (CMIA) CEA testing can have significant value in monitoring of patients with diagnosed malignancies in whom changing concentrations of CEA are observed. Values obtained with different assay methods cannot be used interchangeably. Hepatitis B,C Profile Reviewed date:02/20/2024 01:08:32 PM Interpretation:Negative Performing Lab:[facility], [address] [place] [phone] Notes/Report: Hepatitis B Surface Antibody NONREACTIVE Nonreactive Nonreactive: < 8.00 mIU/mL Hepatitis B Core Antibody Nonreactive Nonreactive Hepatitis C Antibody Nonreactive Nonreactive Antibodies to HCV not detected; does not exclude early acute HCV infection. Hepatitis B Surface Antigen Negative Negative MR head/brain wo/w con Reviewed date:02/24/2024 04:23:41 PM Interpretation:Abnormal Performing Lab: Notes/Report: [address] [address] Magnetic Resonance Report Signed Patient: Zackery Duran MR#: [id number] 129 : 1950 Acct:[id number] Age/Sex: 73 / M ADM Date: 02/24/24 Loc: HO.MRI Attending Dr: Florencia Gipson MD Ordering Physician: Florencia Gipson MD Date of Service: 02/24/24 Procedure(s): MR head/brain wo/w con Accession Number(s): [id number] cc: Markie Arroyo DO; Florencia Gipson MD EXAMINATION: MR BRAIN WITHOUT AND WITH CONTRAST CLINICAL INFORMATION: Lung carcinoma. Intracranial metastatic disease. COMPARISON: No relevant prior imaging. TECHNIQUE: Multiplanar MR imaging of the brain was performed without and with contrast. A total of 5 mL Gadavist was utilized for this examination. FINDINGS: There are multiple ring-enhancing intracranial masses most likely represent metastatic disease in a patient with a known history of a lung carcinoma. There is a small right retromastoid craniotomy site suggesting a history of recent biopsy. The dominant intraparenchymal cystic mass is located within the right cerebellar hemisphere measuring 1.8 cm in diameter. Best visualized on axial image 51 of 176 series 16. The second dominant lesion located within the left periatrial white matter best visualized on axial image 88 and same series measures 1.0 cm in diameter. A right thalamic lesion measures up to 0.9 cm in maximal dimension on axial image 103 of the same series. There are at least 7 additional much smaller and faintly enhancing nodular lesions involving both cerebral hemispheres and cerebellum. There is no substantial intracranial mass effect. No midline shift or hydrocephalus. Midline structures including the cervicomedullary junction are normal. No acute bone marrow signal changes. There is no acute territorial infarct. Intracranial vascular flow voids are grossly maintained. There is a trace right mastoid tip effusion. Trivial mucosal thickening within the abdomen recess of the left maxillary sinus and mild mucosal thickening within the ethmoid air cells. Globes and orbits are symmetric. MR/MR head/brain wo/w con IMPRESSION: There are multiple ring-enhancing intracranial masses most likely representing metastatic disease in a patient with a known history of a lung carcinoma. The dominant lesion is located within the right cerebellar hemisphere measuring 1.8 cm in maximal dimension. The second dominant lesion located within the left periatrial white matter measures 1.0 cm in maximal dimension. A right thalamic lesion measures up to 0.9 cm in maximal dimension. There are at least 7 additional much smaller and faintly enhancing nodular lesions involving both cerebral hemispheres and cerebellum. There are chronic postoperative changes of a right retromastoid craniotomy, potentially related to a biopsy of the dominant right cerebellar mass. Comparison with prior imaging is therefore recommended if available to assess the stability of these lesions. No substantial intracranial mass effect. No midline shift or hydrocephalus. Electronically signed by: Markie Abreu MD 02/24/2024 04:05 PM EDT Dictated By: Markie Abreu MD Signed By: <Electronically signed by Markie Abreu MD in OV> 02/24/24 1605 DD/ 1422 TD/TT: 02/24/24 [address] [employer] Supervisor: RH Complete Blood Count Auto Di ff Reviewed date:05/07/2024 10:09:39 AM Interpretation:Abnormal Performing Lab:[facility], [address] [place] [phone] Notes/Report: White Blood Count 5.9 4.8-10.8 X10*3/uL Red Blood Count 4.10 4.60-5.80 X10*6/uL Hemoglobin 14.0 14.0-18.0 g/dl Hematocrit 41.1 42.0-52.0 % Mean Corpuscular Volume 100.2 80.0-98.0 fL Mean Corpuscular Hemoglobin 34.1 27.0-33.0 pg Mean Corpuscular HGB Conc 34.1 31.0-36.0 g/dl Red Cell Distribution Width 13.2 11.0-16.0 % Platelet Count 91 160-400 X10*3/uL Mean Platelet Volume 10.3 9.4-12.4 fL Neutrophils Percent Auto 55.8 45-73 % Imm Gran Pct Auto 0.3 0.0-0.4 % Lymphocytes Percent Auto 31.4 20-40 % Monocytes Percent Auto 9.9 2-11 % Eosinophils Percent Auto 1.9 0-4 % Basophils Percent Auto 0.7 0-2 % NRBC Pct Auto 0.0 0.0-0.2 /100WBC Neutrophils Absolute Auto 3.3 2.0-8.3 x10*3/u L Imm Gran Abs Auto 0.02 0.00-0.03 X10*3/uL Lymphocytes Absolute Auto 1.8 1.2-4.9 X10*3/u L Monocytes Absolute Auto 0.6 0.1-1.2 X10*3/uL Eosinophils Absolute Auto 0.1 0.0-0.4 X10*3/u L Basophils Absolute Auto 0.0 0.0-0.2 X10*3/uL NRBC Abs Auto 0.000 0.0-0.012 X10*3/uL Comprehensive Met. Panel Reviewed date:05/07/2024 10:09:39 AM Interpretation:Abnormal Performing Lab:[facility], [address] [place] [phone] Notes/Report: Sodium 142 135-145 mmol/L Potassium 5.0 3.3-5.1 mmol/L Chloride 109 96-108 mmol/L Carbon Dioxide 28 22-29 mmol/L Anion Gap 10 12-20 Blood Urea Nitrogen 27 9-16 mg/dL Creatinine 0.87 0.5-1.4 mg/dL Creatinine Clr Calc Pharmacy 54.7 eGFR (calculated from the MDRD study equation) and eCrCl (calculated from the Cockcroft-Gault equation) are based on different parameters and may not yield comparable results. If eCrCl result is absurd, please check patient's height/weight. Estimated Glomerular Filt Rate > 60 Chronic Kidney Disease: Estimated GFR < 60 mL/min/1.73m2 Severe Kidney Disease: Estimated GFR < 15 mL/min/1.73m2 Glucose Random 106 60-115 mg/dL Calcium 9.6 8.4-10.2 mg/dL Bilirubin Total 0.5 0.0-1.0 mg/dL Aspartate Amino Transferase 35 5-37 U/L Alanine Aminotransferase 17 0-40 U/L Total Protein 6.7 6.5-8.0 g/dL Albumin Level 3.8 3.5-5.0 g/dL Alkaline Phosphatase 42 39-117 U/L Hold Gold Reviewed date:05/07/2024 10:09:39 AM Interpretation:Hold Performing Lab:[facility], [address] [place] [phone] Notes/Report: Hold Gold See Note Specimen held untested for 24 hours; Call to request Chemistry testing. CT chest w con Reviewed date:05/09/2024 04:22:51 PM Interpretation:Abnormal Performing Lab: Notes/Report: [address] [address] [address] Scan Report Signed Patient: Zackery Duran MR#: [id number] 129 : 1950 Acct:[id number] Age/Sex: 73 / M ADM Date: 05/08/24 Loc: HO.CT Attending Dr: Florencia Gipson MD Ordering Physician: Florencia Gipson MD Date of Service: 05/08/24 Procedure(s): CT chest w IV con Accession Number(s): [id number] cc: Markie Arroyo DO; Florencia Gipson MD EXAMINATION: CT CHEST WITH CONTRAST CLINICAL INFORMATION: Non-small cell lung carcinoma evaluation COMPARISON: 02/13/2024 TECHNIQUE: Multidetector volumetric CT imaging of the chest was obtained after the administration of 65 mL of Omnipaque 350 intravenous contrast without immediate adverse reactions. Axial MIP volume rendering provided. Sagittal and coronal reformatted images were obtained. This CT examination was performed using dose optimization techniques as appropriate, variously including the following: *Automated exposure control *Adjustment of mA and/or kV according to patient size (this includes techniques or standardized protocols for targeted exams where dose is matched to indication/reason for exam; i.e. extremities or head) *Use of iterative reconstruction technique DLP: 73 mGy-cm FINDINGS: [employer]: Unremarkable LUNGS: Stellate right upper lobe mass extending to the anterior pleural surface measuring 31 x 18 x 26 mm (5/16) with adjacent reticulation and fibrotic change is stable. There is extensive emphysematous change with peripheral bleb formation unchanged. No pneumothorax. No new consolidations. There is a tiny element of nodular scarring or a calcific nodularity in the peripheral mid right lung. No change. MEDIASTINUM: There is normal contrast enhancement in the great vessels of the mediastinum. No pericardial effusion. All mediastinal nodes measuring up to 14 mm particularly in the precarinal space are stable. Moderate coronary artery calcification again seen. PLEURA: There is no pleural effusion. No pleural mass or thickening. AXILLA: No lymphadenopathy. UPPER ABDOMEN: Hepatic steatosis. No change. There is a prominent left adrenal mass. This has increased in size from 01/23/2024. Today the mass measures 26 x 28 mm, and at a similar location and level, did measure 10 x 13 mm. In addition, there is a subtle low density lesion projecting off the superior right kidney at 7 mm not appreciated on the prior study. This could be a small right adrenal lesion off the inferior tail of the right adrenal with extrinsic mass effect on the superior right kidney. It should be followed. Simple cyst in the left kidney and spleen are stable. OSSEOUS STRUCTURES: The thoracic spine is kyphotic with spondylitic change. Sternum intact. No destructive lesions. CT/CT chest w IV con IMPRESSION: Though the dominant right upper lobe mass is stable, there is an enlarging left adrenal mass with a possible small right adrenal metastasis is also suspicious for metastases. I believe a PET/CT would be helpful in this case. Fleischner guidelines were followed. Electronically signed by: Trenton Shannon MD 05/09/2024 03:29 PM [facility] Dictated By: Trenton Shannon MD Signed By: <Electronically signed by Trenton Shannon MD in OV> 05/09/24 1529 DD/ 1437 TD/TT: 05/08/24 [address] [employer] Supervisor: REASON FOR REFERRAL Reason Mass of upper lobe o f right lung Diagnosis 1 Mass of upper lobe o f right lung (R91.8) Referral Organization Markie Bentley O, FACP Referring Provider First Name Markie Referring Provider Last Name Cruz Referring Provider Speciality Internal M edicine Referred Provider Sander Franco Referred Provider Specialty Surgery General Notes Milagro Cardenas 024 03:23:28 PM EDT > ADDITIONAL RECORDS TO FOLLOW BY SEPARATE FAX., Milagro Cardenas 01/25/2024 03:34:56 PM EDT > additional records faxed.Ronald Joan 01/25/2024 04:48:49 PM EDT > patient notified. Referral Priority Routine Referral Appointment Date 01/31/2024 MEDICATIONS Medication SIG (Take, Route, Frequency, Duration) Notes Start Date End Date Status Simvastatin 20 MG 1 tablet in the even ing Orally Once a day Active QUEtiapine Fumarate 50 MG 1 tablet at be dtime Orally Once a day 11/15/2023 Active Divalproex Sodium 500 MG 2 tablets at be dtime Orally Once a day Active Glatopa 20 MG/ML 1 ml Subcutaneous On a day Active Vitamin D (Ergocalciferol) 16133 UNIT 1 capsule Orally Once a Week Active IMMUNIZATIONS Vaccine Route Administration Date Status Comme nts TDaP IM Intramuscular 08/11/2012 Administered Pneumococcal - PPSV23 Unknown 06/14/2013 Administered Influenza Unknown 03/10/2015 Administered Influenza Unknown 03/03/2016 Administered Influenza Quad IM Intramuscular 02/10/2018 Administered Influenza Quad IM Intramuscular 03/28/2019 Administered Influenza High Dose IM Intramuscular 01/14/2020 Administer ed Influnza High Dose Quad Unknown 02/10/2021 Administered COVID-19 Moderna Vaccine Unknown 09/16/2021 Administere d COVID-19 Moderna Vaccine Unknown 04/24/2021 Administere d COVID-19 Moderna Vaccine Unknown 09/16/2020 Administere d COVID-19 Moderna Vaccine Unknown 08/19/2020 Administere d Flu-aIIV4 Unknown 02/03/2022 Administered Shingrix Unknown 04/21/2022 Administered COVID-19 Moderna Bivalent Unknown 02/07/2022 Administer ed Shingrix Unknown 06/28/2022 Administered Influnza High Dose Quad Unknown 02/10/2023 Administered SOCIAL HISTORY Tobacco Use: Social History Observation [...] Ready to quit Additional Findings: Tobacco User Catie t cigarette smoker, not currently using another form of tobacco Alcohol Screen Question Answer Notes Did you have a drink containing alcohol in the p ast year? No Points 0 Interpretation Negative PROBLEMS Problem Type ICD Code Onset Dates Problem Status W/U Status Risk SNOMED Code Notes Problem Vitamin D deficiency (E55.9) Active confirmed 39748674 Problem Bipolar disorder, in full remission, most recent episode depressed (F31.76) Active confirmed 21744075 Problem Multiple sclerosis (G35) Active confirmed 11507106 Problem Trigeminal neuralgia (G50.0) Active confirmed 26140271 Problem Essential hypertensi on (I10) Active confirmed 32137564 Problem Hypercholesterolemia (E78.00) Active confirmed 57738304 Problem Malignant neoplasm o f upper lobe of right lung (C34.11) Active confirmed 452489443 VITAL SIGNS Blood pressure diastolic 62 mm Hg 02/28/2024 Height 62.75 in 04/13/2024 Blood pressure systolic 122 mm Hg 02/28/2024 Weight 120 lbs 04/13/2024 BMI 21.42 kg/m2 04/13/2024 Encounters Encounter Location Date Provider Diagnosis Markie Arroyo DO, [facility] [address] [place], [place] [phone] 06/14/2023 Markie Arroyo DO, [facility] [address] [place], [place] [id number] 05/17/2023 Markie Arroyo Bipolar disorder, in full remission, most recent episode depressed F31.76 ; Essential hypertension I10 ; Hypercholesterolemia E78.00 ; Multiple sclerosis G35 and Vitamin D deficiency E55.9 Markie Arroyo DO, [facility] [address] [place], [place] [id number] 11/15/2023 Markie Arroyo Bipolar disorder, in full remission, most recent episode depressed F31.76 ; Vitamin D deficiency E55.9 ; Essential hypertension I10 ; Hypercholesterolemia E78.00 and Multiple sclerosis G35 Markie Arroyo DO, [facility] [address] [place], [place] [id number] 01/11/2024 Markie Arroyo Essential hypertensi on I10 ; Hypercholesterolemia E78.00 ; Vitamin D deficiency E55.9 ; Multiple sclerosis G35 ; Bipolar disorder, in full remission, most recent episode depressed F31.76 and Weight loss, unintentional R63.4 Markie Arroyo DO, [facility] [address] [place], [place] [id number] 02/28/2024 Markie Arroyo Malignant neoplasm o f upper lobe of right lung C34.11 ; Bipolar disorder, in full remission, most recent episode depressed F31.76 ; Essential hypertension I10 ; Multiple sclerosis G35 ; Hypercholesterolemia E78.00 and Vitamin D deficiency E55.9 Markie Arroyo DO, [facility] [address] [place], [place] [id number] 04/11/2024 Markie Arroyo DO, [facility] [address] [place], [place] [id number] 11/15/2023 Markie Arroyo DO, [facility] [address] [place], [place] [id number] 04/13/2024 Markie Arroyo Malignant neoplasm o f upper lobe of right lung C34.11 ; Hypercholesterolemia E78.00 ; Vitamin D deficiency E55.9 ; Bipolar disorder, in full remission, most recent episode depressed F31.76 and Multiple sclerosis G35 Markie Michael Cruz CELIS, [facility] [address] [place], [place] [id number] 01/25/2024 Markie Arroyo Mass of upper lobe o f right lung R91.8 ; Essential hypertension I10 ; Hypercholesterolemia E78.00 ; Multiple sclerosis G35 ; Vitamin D deficiency E55.9 and Bipolar disorder, in full remission, most recent episode depressed F31.76 ASSESSMENTS Encounter Date Diagnosis Assessment Notes Treatment Notes Treatment Clinical Notes 05/17/2023 Bipolar disorder, in full remission, most recent episode depressed (ICD-10 - F31.76) 05/17/2023 Essential hypertensi on (ICD-10 - I10) 11/15/2023 Vitamin D deficiency (ICD-10 - E55.9) 11/15/2023 Bipolar disorder, in full remission, most recent episode depressed (ICD-10 - F31.76) Will follow platelet count 01/11/2024 Essential hypertensi on (ICD-10 - I10) 01/11/2024 Hypercholesterolemia (ICD-10 - E78.00) 02/28/2024 Bipolar disorder, in full remission, most recent episode depressed (ICD-10 - F31.76) 02/28/2024 Malignant neoplasm o f upper lobe of right lung (ICD-10 - C34.11) Follow up with Oncology 04/13/2024 Hypercholesterolemia (ICD-10 - E78.00) 04/13/2024 Malignant neoplasm o f upper lobe of right lung (ICD-10 - C34.11) Follow up with Oncology. Agustín is drinking 2 cans of Ensure a day. 01/25/2024 Essential hypertensi on (ICD-10 - I10) 01/25/2024 Mass of upper lobe o f right lung (ICD-10 - R91.8) 05/17/2023 Hypercholesterolemia (ICD-10 - E78.00) 11/15/2023 Essential hypertensi on (ICD-10 - I10) 01/11/2024 Vitamin D deficiency (ICD-10 - E55.9) 02/28/2024 Essential hypertensi on (ICD-10 - I10) Stop lisinopril due to elevated potassium. Low salt diet. 04/13/2024 Vitamin D deficiency (ICD-10 - E55.9) 01/25/2024 Hypercholesterolemia (ICD-10 - E78.00) 05/17/2023 Multiple sclerosis (ICD-10 - G35) Follow up with Neurology 11/15/2023 Hypercholesterolemia (ICD-10 - E78.00) 01/11/2024 Multiple sclerosis (ICD-10 - G35) 02/28/2024 Multiple sclerosis (ICD-10 - G35) 04/13/2024 Bipolar disorder, in full remission, most recent episode depressed (ICD-10 - F31.76) 01/25/2024 Multiple sclerosis (ICD-10 - G35) 05/17/2023 Vitamin D deficiency (ICD-10 - E55.9) 11/15/2023 Multiple sclerosis (ICD-10 - G35) 01/11/2024 Bipolar disorder, in full remission, most recent episode depressed (ICD-10 - F31.76) 02/28/2024 Hypercholesterolemia (ICD-10 - E78.00) 04/13/2024 Multiple sclerosis (ICD-10 - G35) 01/25/2024 Vitamin D deficiency (ICD-10 - E55.9) 01/11/2024 Weight loss, unintentional (ICD-10 - R63.4) Neurology has ordered CT scan of chest, abdomen, and pelvis, to assess for possible occult malignacy, as suggested by the recent MRI of the brain. Agustín had a normal PSA last April, and is seeing GI in January. His last colonoscopy was in 2020. 02/28/2024 Vitamin D deficiency (ICD-10 - E55.9) 01/25/2024 Bipolar disorder, in full remission, most recent episode depressed (ICD-10 - F31.76) PLAN OF TREATMENT Next Appt Details Provider Name:Markie Rodriguez Amy bautista, 07/11/2024 09:45:00 AM, [address] [place] [address], [phone], Insurance Providers Payer Name Payer Address Payer Phone Subscriber Number Group Number Insured Name Patient Relationship to Insured Coverage Start Date Coverage End Date [facility] [address] [place], [place] [phone] [id number] Zackery Duran Self - patient is the insured MEDICAL (GENERAL) HISTORY Medical History History ICD Code hypertension hypercholesterolemia vitamin D deficiency bipolar affective disorder chronic sleep disorder alcoholism, 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
--- OUTSIDE RECORDS SUMMARY | 2024-05-09 21:53 | XMS_ITS ---
Author Organization Markie Arroyo DO, FACP Address [address] [place], [place] [phone] Care Team Providers Care Diamond Mounter Name Role Phone Markie Arroyo Primary Care Provider REASON FOR VISIT 6 week f/u Encounters Encounter Location Date Provider Diagnosis Markie Arroyo DO, FACP [address] [place], [place] [phone] 04/11/2024 Markie Arroyo PLAN OF TREATMENT Next Appt Details Provider Name:Markie bautista, 07/11/2024 09:45:00 AM, [address] [place], [place], [phone],
--- OUTSIDE RECORDS SUMMARY | 2024-05-09 21:53 | XMS_ITS ---
Author Organization Markie Arroyo DO, FACP Address [address] [place], [place] [id number] Care Team Providers Care [employer] Officer Name Role Phone Markie Arroyo Primary Care Provider [phone] ALLERGIES Allergen (clinical drug ingredient) Drug/Non Drug Allergy documented on EMR Reaction Allergy Type Onset Date Status carbamazepine Carbamazepine rash Drug Allergy Active REASON FOR VISIT 2 month f/u, Follow up Malignant neoplasm of upper lobe of right lung MEDICATIONS Medication SIG (Take, Route, Frequency, Duration) Notes Start Date End Date Status QUEtiapine Fumarate 50 MG 1 tablet at be dtime Orally Once a day 11/15/2023 Active Divalproex Sodium 500 MG 2 tablets at be dtime Orally Once a day Active Glatopa 20 MG/ML 1 ml Subcutaneous On ce a day Active Vitamin D (Ergocalciferol) 41394 UNIT 1 capsule Orally Once a Week Active Simvastatin 20 MG 1 tablet in the even ing Orally Once a day Active SOCIAL HISTORY Tobacco Use: Social History Observation Description Date Details (start date - stop date) Current Smoker NA - NA Sex Assigned At : Social History Observation Description Sex Assigned At Unknown Tobacco Use/Smoking Question Answer Notes Patient is a current smoker How often do you smoke cigarettes? every day How many cigarettes a day do you smoke? 6-10 How soon after you wake up d o you smoke your first cigarette? after 60 minutes Are you interested in quitting? Thinking about q uitting Additional Findings: Tobacco User Curren t cigarette smoker, not currently using another form of tobacco Alcohol Screen Question Answer Notes Did you have a drink containing alcohol in the p ast year? No Points 0 Interpretation Negative PROBLEMS Problem Type ICD Code Onset Dates Problem Status W/U Status Risk SNOMED Code Notes Problem Malignant neoplasm of upper lobe of right lung (C34.11) Active confirmed 951980416 VITAL SIGNS BMI 21.78 kg/m2 02/28/2024 Blood pressure systolic 122 mm Hg 02/28/20 24 Blood pressure diastolic 62 mm Hg 024 Height 62.75 in 02/28/2024 Weight 122 lbs 02/28/2024 Encounters Encounter Location Date Provider Diagnosis Markie Rodriguez Cruz DO, [facility] [address] [place], [place] [phone] 02/28/2024 Markie Boldenman Malignant neoplasm o f upper lobe of right lung C34.11 ; Bipolar disorder, in full remission, most recent episode depressed F31.76 ; Essential hypertension I10 ; Multiple sclerosis G35 ; Hypercholesterolemia E78.00 and Vitamin D deficiency E55.9 ASSESSMENTS Encounter Date Diagnosis Assessment Notes Treatment Notes Treatment Clinical Notes 02/28/2024 Malignant neoplasm o f upper lobe of right lung (ICD-10 - C34.11) Follow up with Oncology 02/28/2024 Bipolar disorder, in full remission, most recent episode depressed (ICD-10 - F31.76) 02/28/2024 Essential hypertensi on (ICD-10 - I10) Stop lisinopril due to elevated potassium. Low salt diet. 02/28/2024 Multiple sclerosis ( ICD-10 - G35) 02/28/2024 Hypercholesterolemia (ICD-10 - E78.00) 02/28/2024 Vitamin D deficiency (ICD-10 - E55.9) PLAN OF TREATMENT Medication Medication Name Sig Start Date Stop Date Notes QUEtiapine Fumarate 50 MG 1 tablet at be dtime Orally Once a day 11/15/2023 Divalproex Sodium 500 MG 2 tablets at be dtime Orally Once a day Glatopa 20 MG/ML 1 ml Subcutaneous Once a day Vitamin D (Ergocalciferol) 25876 UNIT 1 capsule Orally Once a Week Simvastatin 20 MG 1 tablet in the even ing Orally Once a day Lisinopril 20 MG 1 tablet Orally Once a day Treatment Notes Assessment Notes Malignant neoplasm of upper lobe of right lung Follow up with Oncology Essential hypertension Stop lisinopril d ue to elevated potassium. Low salt diet. Next Appt Details Follow Up: 6 Weeks, Reason: follow up visit Provider Name:Markie Reyes michele, 07/11/2024 09:45:00 AM, [address] [place] [address], [phone], Progress Notes * Examination Category Sub-Category Detail Notes General Examination GENERAL APPEARANCE: in no ac beverly distress, well developed, well nourished HEAD: normocephalic, atrau matic HEART: no murmurs, regular rate and rhythm, S1, S2 normal LUNGS: clear to auscultatio n bilaterally ABDOMEN: normal, bowel sounds present, soft, nontender, nondistended SKIN: warm and dry EXTREMITIES: no edema PSYCH: alert, oriented, cog nitive function intact History and Physical Notes * HPI (History of Present Illness) Category Sub-Category Detail Notes Depression Screening PHQ-9 Little inte rest or pleasure in doing things: Not at all Feeling down, depressed, or hopeless: No t at all Trouble falling or staying asleep, or sl eeping too much: Not at all Feeling tired or having little energy: N ot at all Poor appetite or overeating: Not at all Feeling bad about yourself o r that you are a failure, or have let yourself or your family down: Not at all Trouble concentrating on thi ngs, such as reading the newspaper or watching television: Not at all Moving or speaking so slowly that other people could have noticed; or the opposite, being so fidgety or restless that you have been moving around a lot more than usual: Not at all Thoughts that you would be b melyssa off or of hurting yourself in some way: Not at all Total Score: 0 Interpretation and Intervention Depression Mónica verma Findings: Negative Follow-Up for Depression: : Review of PH Q-9 found negative result; no follow-up needed Fall Risk Fall History Have you had two or more fal ls in the past year?: No Have you had any falls with injury in th e past year?: No Fall Risk Assessment:: No falls in the p ast year
--- OUTSIDE RECORDS SUMMARY | 2024-05-09 21:53 | XMS_ITS ---
Author Organization [facility] Address [address] [place] [address] Care Team Providers Care Evaporator Helper Name Role Phone Markie Arroyo DO Primary Care Provider Unavail able Sanju Colbert Jr [phone] REASON FOR VISIT cancel appt Encounters Encounter Location Date Provider Diagnosis [facility] [address] [place] [address] 02/21/2024 Sanju Colbert Jr PLAN OF TREATMENT No Information
--- OUTSIDE RECORDS SUMMARY | 2024-05-09 21:54 | XMS_ITS | Patient Health Record ---
Author Organization [facility] Address [address] [place] [address] Care Team Providers Care Neuropsychology Medical Consultant Name Role Phone Markie Arroyo DO Primary Care Provider Unavail able Sanju Colbert Jr Unavailable ALLERGIES Allergen (clinical drug ingredient) Drug/Non Drug Allergy documented on EMR Reaction Allergy Type Onset Date Status carbamazepine Carbamazepine Unknown Drug Allergy Active REASON FOR REFERRAL No Information MEDICATIONS Medication SIG (Take, Route, Frequency, Duration) Notes Start Date End Date Status OXcarbazepine 450 mg 3x a day Active Depakote 1000mg Acti ve Lisinopril 20 MG Orally Act savi Vitamin D2 5,000 ut Active Glatopa 20 MG/ML Subcutaneous Active Phenytoin 100 MG/4ML Orally Active Simvastatin 20 MG Orally Ac tive MiraLax (colon prep) 8.3 ounce ((238) grams mixed with Gatorade or Crystal Light orally begin at 5:00 p.m. the day before the procedure for 1 day 07/30/2020 Active SEROquel 50mg Active IMMUNIZATIONS Vaccine Route Administration Date Status Comme nts Influenza Unknown 03/05/2020 Administered SOCIAL HISTORY Tobacco Use: Social History Observation Description Date Details (start date - stop date) Current Smoker NA - NA Sex Assigned At : Social History Observation Description Sex Assigned At Unknown Tobacco Use/Smoking Question Answer Notes Patient is a current smoker How often do you smoke cigarettes? every day How many cigarettes a day do you smoke? 11-20 How soon after you wake up do you smoke your fir st cigarette? 6-30 minutes Are you interested in quitting? Not ready to temo t PROBLEMS Problem Type ICD Code Onset Dates Problem Status W/U Status Risk SNOMED Code Notes Problem Colon cancer screening (Z12.11) Active confirmed 673934278 Problem Personal history of colonic polyps (Z86.010) Active confirmed 206969784 Problem Encounter for other preprocedural examination (Z01.818) Active confirmed 90032717 Encounters Encounter Location Date Provider Diagnosis [facility] [address] [place] [phone] 02/27/2024 Sanju Colbert Jr [facility] [address] [place] [phone] 02/21/2024 Sanju Colbert Jr PLAN OF TREATMENT Future Test Test Name Order Date COLONOSCOPY 06/26/2015 COLONOSCOPY 07/30/2020 Insurance Providers Payer Name Payer Address Payer Phone Subscriber Number Group Number Insured Name Patient Relationship to Insured Coverage Start Date Coverage End Date [facility] [address] [place] [address] [id number] RONALD HERRING Self - patient is the insured MEDICAL (GENERAL) HISTORY Medical History History ICD Code Bipolar disorder insomnia elevated cholesterol multiple sclerosis hypertension trigeminal neuralgia Surgical History Surgery Date(Month/Year) right knee surgery Glycerol Rhizotomy, right 07/2020
== END 2024-05-08 14:01 | disposition home or self-care (01) ==
LOC: HO.CT 14:00
PROVIDERS: PCP Internal Medicine; Visit Provider Internal Medicine Medical Oncology
DX: C34.90 Malignant neoplasm of unspecified part of unspecified bronchus or lung (principal)
CPT/HCPCS: 71260; Q9967

== ENCOUNTER → 2024-06-07 12:55 | Outpatient (BNV) | payer MEDICARE, SELFPAY | PROVIDERS: PCP Internal Medicine; Visit Provider Radiology Diagnostic Radiology | DX: C79.31 Secondary malignant neoplasm of brain (principal) | CPT/HCPCS: 70553 ==

== ENCOUNTER 2024-06-07 12:58 | Outpatient (REF) | payer MEDICARE, SELFPAY ==
--- NOTE | ~2024-06-07 | MR_ITS ---
EXAMINATION: MR BRAIN WITHOUT AND WITH CONTRAST CLINICAL INFORMATION: Brain metastasis. Status post radiation. Primary lung cancer. COMPARISON: MRI dated February 24, 2024. TECHNIQUE: Multiplanar, multisequence MRI of the brain was obtained before and after the intravenous administration of 5 mL Gadavist without reported immediate complications. FINDINGS: Infratentorial compartment: Right cerebellar hemisphere: There is an intra-axial, 23 mm peripheral thick capsule enhancing nonrestricted hyperintense T1 and hyperintense T2 FLAIR lesion with hyperintense T2 FLAIR perilesional vasogenic edema. There is an intra-axial 9 mm peripherally enhancing hypointense T1 and hyperintense T2 FLAIR lesion, anterior inferior right cerebellum. No perilesional vasogenic edema. There is an intra-axial 11 mm septated peripheral enhancing lesion in the posterior medial right cerebellum with minimal perilesional vasogenic edema. There is a 5 mm peripheral enhancing mixed solid and cystic components lesion in the posterior superior medial right cerebellum. There is a 3 mm enhancing lesion in the medial right cerebellum near the dentate nucleus. There are a few subtle and scattered 2 mm enhancing lesions in the cerebellum folia posterior inferior aspect. Left cerebellar hemisphere: There is an 11 mm peripheral enhancing cystic lesion in the inferior left aspect with hyperintense T2 FLAIR perilesional vasogenic edema. There is a 7 mm homogeneously enhancing lesion in the deep white matter of the left cerebellum without perilesional vasogenic edema. Supratentorial compartment: Right cerebral hemisphere: 9 mm heterogeneous enhancing solid morphology pattern lesion centered in the pulvinar of the right thalamus with hyperintense T2 FLAIR perilesional vasogenic edema.. There is a 4 mm enhancing lesion in the deep white matter of the right orbital frontal gyrus without perilesional vasogenic edema. There is a 4 mm enhancing lesion in the deep white matter of the right parietal region near the right precentral gyrus. There is an 11 mm peripheral enhancing cystic lesion and the cortical subcortical right frontal region near the right middle frontal gyrus with perilesional hyperintense T2 FLAIR signal. There is a 4 mm enhancing lesion in the subcortical right frontal gyrus. Left cerebral hemisphere: There is a 19 mm peripheral enhancing cystic lesion left temporal the point matter near the middle temporal gyrus with the hyperintense T2 FLAIR perilesional vasogenic edema. There is an 8 mm peripheral enhancing cystic lesion in the cortical subcortical left precuneus with minimal perilesional vasogenic edema.. There are multifocal patchy hyperintense T2 FLAIR signal abnormalities involving the cerebellar and cerebral deep white matters some related to the described enhancing lesions. No restricted diffusion to suggest acute stroke/nonhemorrhagic ischemia. No acute intracranial hemorrhage, midline shift, hydrocephalus or herniation. Flow-void signal within the main cerebral vessels is normal. Prominence of the extra-axial CSF spaces cerebral sulci and ventricles. Sellar/suprasellar region demonstrated no gross masses. Craniocervical junction is intact and normal. MR/MR head/brain wo/w con IMPRESSION: Overall worsening metastatic disease with the larger lesions and perilesional vasogenic edema. Electronically signed by: Juliano Rutherford MD 06/07/2024 02:48 PM EST
[2024-06-07] MEDS: gadobutroL 7.5 ML VIAL IVPUSH (14:13)
--- OUTSIDE RECORDS SUMMARY | 2024-06-07 14:39 | XMS_ITS ---
Author Organization Markie Arroyo DO, FACP Address [address] [place], [place] [id number] Care Team Providers Care Machine Room Operator Name Role Phone Markie Arroyo Primary Care Provider ALLERGIES Allergen (clinical drug ingredient) Drug/Non Drug [...] ce a day Active Vitamin D (Ergocalciferol) 89716 UNIT 1 capsule Orally Once a Week [...] Location Date Provider Diagnosis Markie Arroyo , [address] [phone] 04/13/2024 Markie Arroyo Malignant neoplasm o f [...] Subcutaneous Once a day Vitamin D (Ergocalciferol) 61639 UNIT 1 capsule Orally Once a Week Treatment Notes Assessment Notes Malignant neoplasm of upper lobe of right lung Follow up with Oncology. Agustín is drinking 2 cans of Ensure a day. Next Appt Details Follow Up: 3 Months, Reason: follow up visit Progress Notes * Examination Category Sub-Category Detail Notes General Examination PSYCH: alert, orien navjot, cognitive function intact History and Physical Notes * HPI (History of Present Illness) Category Sub-Category Detail Notes New symptom(s) Telehealth Location of provider:: Pro coriner's home address Location of patient:: Address listed [...]
--- OUTSIDE RECORDS SUMMARY | 2024-06-07 14:40 | XMS_ITS | Patient Health Record ---
Author Organization [facility] Address [address] [place] [id number] Care Team Providers Care Studio Model Name Role Phone Markie Arroyo DO Primary Care Provider Unavail able Sanju Colbert Jr Unavailable [phone] ALLERGIES Allergen (clinical drug ingredient) Drug/Non Drug [...] Problem Colon cancer screening (Z12.11) Active confirmed 164274392 Problem Personal history of colonic polyps (Z86.010) Active confirmed 393251632 Problem Encounter for other preprocedural examination (Z01.818) Active confirmed [id number] Encounters Encounter Location Date Provider Diagnosis [facility] [address] [place] [phone] 02/27/2024 Sanju Colbert Jr [facility] [address] [place] [phone] 02/21/2024 Sanju Colbert Jr PLAN OF TREATMENT Future Test Test Name Order Date COLONOSCOPY 06/26/2015 COLONOSCOPY 07/30/2020 Insurance Providers Payer Name Payer Address Payer Phone Subscriber Number Group Number Insured Name Patient Relationship to Insured Coverage Start Date Coverage End Date [employer] [address] [place] [address] [phone] [id number] RONALD HERRING Self - patient is the insured MEDICAL (GENERAL) HISTORY Medical History History ICD Code Bipolar disorder insomnia elevated cholesterol multiple sclerosis hypertension trigeminal neuralgia Surgical History Surgery Date(Month/Year) right knee surgery Glycerol Rhizotomy, right 07/2020
--- OUTSIDE RECORDS SUMMARY | 2024-06-07 14:40 | XMS_ITS ---
Author Organization [facility] Address [address] [place] [address] Care Team Providers Care Cloth Doubling Machine Operator Name Role Phone Markie Arroyo DO Primary Care Provider Unavail able Sanju Colbert Jr REASON FOR VISIT cancel appt Encounters Encounter Location Date Provider Diagnosis [facility] [address] [place] [address] 02/21/2024 Sanju Colbert Jr PLAN OF TREATMENT No Information
--- OUTSIDE RECORDS SUMMARY | 2024-06-07 14:40 | XMS_ITS | Patient Health Record ---
Author Organization Markie Arroyo DO, FACP Address [address] [place], [place] [id number] Care Team Providers Care Form Setter Supervisor Name Role Phone Markie Arroyo Primary Care Provider ALLERGIES Allergen (clinical drug ingredient) Drug/Non Drug Allergy documented on EMR Reaction Allergy Type Onset Date Status carbamazepine Carbamazepine rash Drug Allergy Active RESULTS Component Value Reference Range Notes Complete Blood Count Auto Di ff Reviewed date:02/13/2024 09:57:09 AM Interpretation:Abnormal Performing Lab:[facility], [address] [place] [phone] Notes/Report: White Blood Count 7.7 4.8-10.8 X10*3/uL [...] INR Reviewed date:02/13/2024 09:57:09 AM Interpretation:Normal Performing Lab:[facility], [address] [place] [phone] Notes/Report: Prothrombin Time 11.1 11.1-13.3 SEC INTERNATIONAL [...] Time Reviewed date:02/13/2024 09:57:09 AM Interpretation:Low Performing Lab:[facility], [address] [place] [phone] Notes/Report: Partial Thromboplastin Time 24.2 26.0-36.8 SEC For information regarding the monitoring of direct thrombin inhibitors, please refer to Pharmacy. Pathology Reviewed date:02/27/2024 08:39:24 PM Interpretation:Abnormal Performing Lab:[facility], [address] [place] [phone] Notes/Report: CT biopsy lung RT Reviewed date:04/23/2024 01:16:42 PM Interpretation:Abnormal Performing Lab: Notes/Report: [address] [address] [address] Scan Report Signed Patient: Zackery Duran MR#: [id number] 129 : 1950 Acct:[id number] Age/Sex: 73 / M ADM Date: 02/13/24 Loc: HO.[facility] Attending Dr: Sander Franco MD Ordering Physician: Sander Franco MD Date of Service: 02/13/24 Procedure(s): CT biopsy lung RT Accession Number(s): [id number] cc: Markie Arroyo DO; Sander Franco MD [...] 04/23/24 1248 DD/ 1035 TD/TT: 02/13/24 1115 Infant Childcare Provider: XR chest 1V Reviewed date:04/04/2024 05:24:36 PM Interpretation:Abnormal Performing Lab: Notes/Report: [address] [address] XRay Report Signed Patient: Zackery Duran MR#: [id number] 129 : 1950 Acct:[id number] Age/Sex: 73 / M ADM Date: 02/13/24 Loc: .[facility] Attending Dr: Sander Franco MD Ordering Physician: Catrachito Thomas Date of Service: 02/13/24 Procedure(s): XR chest 1V Accession Number(s): [id number] cc: Markie Arroyo DO; Catrachito Thomas EXAMINATION: [...] 04/04/24 1302 DD/ 1155 TD/TT: 02/13/24 1159 Infant Childcare Provider: Pathology Reviewed date:02/16/2024 06:47:16 PM Interpretation:Abnormal Performing Lab:[facility], [address] [place] [address] Notes/Report: XR chest 1V Reviewed date:04/04/2024 05:25:29 PM Interpretation:Abnormal Performing Lab: Notes/Report: [facility] [address] [place] [address] XRay Report Signed Patient: Zackery Duran MR#: [id number] 129 : 1950 Acct:[id number] Age/Sex: 73 / M ADM Date: 02/13/24 Loc: .[facility] Attending Dr: Sander Franco MD Ordering Physician: Catrachito Thomas Date of Service: 02/13/24 Procedure(s): XR chest 1V Accession Number(s): [id number] cc: Markie Arroyo DO; Catrachito Thomas EXAMINATION: [...] 04/04/24 1405 DD/ 1300 TD/TT: 02/13/24 1300 Infant Childcare Provider: Complete Blood Count Auto Di ff Reviewed date:02/20/2024 01:08:32 PM Interpretation:Abnormal Performing Lab:[facility], [address] [place] [phone] Notes/Report: White Blood Count 7.5 4.8-10.8 X10*3/uL [...] Panel Reviewed date:02/20/2024 01:08:32 PM Interpretation:Abnormal Performing Lab:[facility], [address] [place] [phone] Notes/Report: Sodium 141 135-145 mmol/L Potassium 5.4 [...] Glomerular Filt Rate > 60 NOTE: For -[place] Islander individuals, multiply the result by 1.210. Chronic [...] Dehydrogenase Reviewed date:02/20/2024 01:08:32 PM Interpretation:Normal Performing Lab:[facility], [address] [place] [phone] Notes/Report: Lactate Dehydrogenase 172 118-273 U/L Carcinoembryonic Antigen Reviewed date:02/20/2024 01:08:32 PM Interpretation:Normal Performing Lab:[facility], [address] [place] [phone] Notes/Report: Carcinoembryonic Antigen 2.50 CEA Reference Range: [...] Profile Reviewed date:02/20/2024 01:08:32 PM Interpretation:Negative Performing Lab:[facility], [address] [place] [phone] Notes/Report: Hepatitis B Surface Antibody NONREACTIVE Nonreactive Nonreactive: < 8.00 mIU/mL Hepatitis B Core Antibody Nonreactive Nonreactive Hepatitis C Antibody Nonreactive Nonreactive Antibodies to HCV not detected; does not exclude early acute HCV infection. Hepatitis B Surface Antigen Negative Negative MR head/brain wo/w con Reviewed date:02/24/2024 04:23:41 PM Interpretation:Abnormal Performing Lab: Notes/Report: [address] [address] Magnetic Resonance Report Signed Patient: Zackery Duran MR#: [id number] 129 : 1950 Acct:[id number] Age/Sex: 73 / M ADM Date: 02/24/24 Loc: HO.MRI Attending Dr: Florencia Gipson MD Ordering Physician: Florencia Gipson MD Date of Service: 02/24/24 Procedure(s): MR head/brain wo/w con Accession Number(s): [id number] cc: Markie Arroyo DO; Florencia Gipson MD [...] 02/24/24 1605 DD/ 1422 TD/TT: 02/24/24 1422 Infant Childcare Provider: RH Complete Blood Count Auto Di ff Reviewed date:05/07/2024 10:09:39 AM Interpretation:Abnormal Performing Lab:[facility], [address] [place] [phone] Notes/Report: White Blood Count 5.9 4.8-10.8 X10*3/uL [...] Panel Reviewed date:05/07/2024 10:09:39 AM Interpretation:Abnormal Performing Lab:[facility], [address] [place] [phone] Notes/Report: Sodium 142 135-145 mmol/L Potassium 5.0 [...] Gold Reviewed date:05/07/2024 10:09:39 AM Interpretation:Hold Performing Lab:[facility], [address] [place] [phone] Notes/Report: Hold Gold See Note Specimen held untested for 24 hours; Call to request Chemistry testing. CT chest w con Reviewed date:05/09/2024 04:22:51 PM Interpretation:Abnormal Performing Lab: Notes/Report: [address] [address] [address] Scan Report Signed Patient: Zackery Duran MR#: [id number] 129 : 1950 Acct:[id number] Age/Sex: 73 / M ADM Date: 05/08/24 Loc: HO.CT Attending Dr: Florencia Gipson MD Ordering Physician: Florencia Gipson MD Date of Service: 05/08/24 Procedure(s): CT chest w IV con Accession Number(s): [id number] cc: Markie Arroyo DO; Florencia Gipson MD [...] iterative reconstruction technique DLP: 73 mGy-cm FINDINGS: WOODYARD OPERATOR: Unremarkable LUNGS: Stellate right upper lobe mass [...] by: Trenton Shannon MD 05/09/2024 03:29 PM [facility] Dictated By: Trenotn Shannon MD Signed By: <Electronically signed by Trenton Shannon MD in OV> 05/09/24 1529 DD/ 1437 TD/TT: 05/08/24 1453 Infant Childcare Provider: Complete Blood Count Auto Di ff Reviewed date:05/17/2024 12:19:14 PM Interpretation:Abnormal Performing Lab:[facility], [address] [place] [phone] Notes/Report: White Blood Count 6.3 4.8-10.8 X10*3/uL Red Blood Count 3.84 4.60-5.80 X10*6/uL Hemoglobin 13.2 14.0-18.0 g/dl Hematocrit 38.1 42.0-52.0 % Mean Corpuscular Volume 99.2 80.0-98.0 fL Mean Corpuscular Hemoglobin 34.4 27.0-33.0 pg Mean Corpuscular HGB Conc 34.6 31.0-36.0 g/dl Red Cell Distribution Width 13.2 11.0-16.0 % Platelet Count 124 160-400 X10*3/uL Mean Platelet Volume 10.2 9.4-12.4 fL Neutrophils Percent Auto 66.8 45-73 % Imm Gran Pct Auto 0.5 0.0-0.4 % Lymphocytes Percent Auto 20.7 20-40 % Monocytes Percent Auto 10.6 2-11 % Eosinophils Percent Auto 0.8 0-4 % Basophils Percent Auto 0.6 0-2 % NRBC Pct Auto 0.0 0.0-0.2 /100WBC Neutrophils Absolute Auto 4.2 2.0-8.3 x10*3/u L Imm Gran Abs Auto 0.03 0.00-0.03 X10*3/uL Lymphocytes Absolute Auto 1.3 1.2-4.9 X10*3/u L Monocytes Absolute Auto 0.7 0.1-1.2 X10*3/uL Eosinophils Absolute Auto 0.1 0.0-0.4 X10*3/u L Basophils Absolute Auto 0.0 0.0-0.2 X10*3/uL NRBC Abs Auto 0.000 0.0-0.012 X10*3/uL Comprehensive Met. Panel Reviewed date:05/17/2024 12:45:51 PM Interpretation:Abnormal Performing Lab:[facility], [address] [place] [phone] Notes/Report: Sodium 143 135-145 mmol/L Potassium 5.5 3.3-5.1 mmol/L Chloride 110 96-108 mmol/L Carbon Dioxide 29 22-29 mmol/L Anion Gap 10 12-20 Blood Urea Nitrogen 23 9-16 mg/dL Creatinine 0.90 0.5-1.4 mg/dL Creatinine Clr Calc Pharmacy 52.2 eGFR (calculated from the MDRD study equation) and eCrCl (calculated from the Cockcroft-Gault equation) are based on different parameters and may not yield comparable results. If eCrCl result is absurd, please check patient's height/weight. Estimated Glomerular Filt Rate > 60 Chronic Kidney Disease: Estimated GFR < 60 mL/min/1.73m2 Severe Kidney Disease: Estimated GFR < 15 mL/min/1.73m2 Glucose Random 134 60-115 mg/dL Calcium 9.2 8.4-10.2 mg/dL Bilirubin Total 0.6 0.0-1.0 mg/dL Aspartate Amino Transferase 35 5-37 U/L Alanine Aminotransferase 14 0-40 U/L Total Protein 6.5 6.5-8.0 g/dL Albumin Level 3.6 3.5-5.0 g/dL Alkaline Phosphatase 39 39-117 U/L Liver Panel Reviewed date:05/17/2024 12:45:51 PM Interpretation:Normal Performing Lab:[facility], [address] [place] [phone] Notes/Report: Bilirubin Direct 0.2 0.0-0.5 mg/dL Amylase Reviewed date:05/17/2024 12:45:51 PM Interpretation:Normal Performing Lab:[facility], [address] [place] [phone] Notes/Report: Amylase 57 28-100 U/L Lipase Reviewed date:05/17/2024 12:45:51 PM Interpretation:Normal Performing Lab:[facility], [address] [place] [phone] Notes/Report: Lipase 16 8-78 U/L Thyroid Stimulating Hormone Reviewed date:05/17/2024 12:45:51 PM Interpretation:Normal Performing Lab:[facility], [address] [place] [phone] Notes/Report: Thyroid Stimulating Hormone 3.36 0.32-4.0 uIU/ mL Note: A sustained TSH level above 2.5 uIU/mL may warrant further investigation. TSH 3rd Generation ([facility]) Complete Blood Count Auto Di ff Reviewed date:06/01/2024 12:52:10 PM Interpretation:Reviewed by Dr Jacobo Performing Lab:[facility], [address] [place] [phone] Notes/Report: White Blood Count 7.3 4.8-10.8 X10*3/uL Red Blood Count 3.81 4.60-5.80 X10*6/uL Hemoglobin 12.9 14.0-18.0 g/dl Hematocrit 38.1 42.0-52.0 % Mean Corpuscular Volume 100.0 80.0-98.0 fL Mean Corpuscular Hemoglobin 33.9 27.0-33.0 pg Mean Corpuscular HGB Conc 33.9 31.0-36.0 g/dl Red Cell Distribution Width 14.5 11.0-16.0 % Platelet Count 92 160-400 X10*3/uL Mean Platelet Volume 10.6 9.4-12.4 fL Neutrophils Percent Auto 68.3 45-73 % Imm Gran Pct Auto 0.6 0.0-0.4 % Lymphocytes Percent Auto 19.8 20-40 % Monocytes Percent Auto 10.5 2-11 % Eosinophils Percent Auto 0.4 0-4 % Basophils Percent Auto 0.4 0-2 % NRBC Pct Auto 0.0 0.0-0.2 /100WBC Neutrophils Absolute Auto 5.0 2.0-8.3 x10*3/u L Imm Gran Abs Auto 0.04 0.00-0.03 X10*3/uL Lymphocytes Absolute Auto 1.4 1.2-4.9 X10*3/u L Monocytes Absolute Auto 0.8 0.1-1.2 X10*3/uL Eosinophils Absolute Auto 0.0 0.0-0.4 X10*3/u L Basophils Absolute Auto 0.0 0.0-0.2 X10*3/uL NRBC Abs Auto 0.000 0.0-0.012 X10*3/uL Comprehensive Met. Panel Reviewed date:06/01/2024 12:52:28 PM Interpretation:Reviewed by Dr Jacobo Performing Lab:[facility], [address] [place] [phone] Notes/Report: Sodium 140 135-145 mmol/L Potassium 4.8 3.3-5.1 mmol/L Chloride 110 96-108 mmol/L Carbon Dioxide 22 22-29 mmol/L Anion Gap 13 12-20 Blood Urea Nitrogen 21 9-16 mg/dL Creatinine 0.77 0.5-1.4 mg/dL Creatinine Clr Calc Pharmacy 61.4 eGFR (calculated from the MDRD study equation) and eCrCl (calculated from the Cockcroft-Gault equation) are based on different parameters and may not yield comparable results. If eCrCl result is absurd, please check patient's height/weight. Estimated Glomerular Filt Rate > 60 Chronic Kidney Disease: Estimated GFR < 60 mL/min/1.73m2 Severe Kidney Disease: Estimated GFR < 15 mL/min/1.73m2 Glucose Random 94 60-115 mg/dL Calcium 8.8 8.4-10.2 mg/dL Bilirubin Total 0.5 0.0-1.0 mg/dL Aspartate Amino Transferase 39 5-37 U/L Alanine Aminotransferase 13 0-40 U/L Total Protein 6.4 6.5-8.0 g/dL Albumin Level 3.4 3.5-5.0 g/dL Alkaline Phosphatase 48 39-117 U/L Liver Panel Reviewed date:06/01/2024 12:52:36 PM Interpretation:Reviewed by Dr Jacobo Performing Lab:[address] [phone] Notes/Report: Bilirubin Direct 0.2 0.0-0.5 mg/dL Thyroid Stimulating Hormone Reviewed date:06/01/2024 12:52:44 PM Interpretation:Reviewed by Dr Jacobo Performing Lab:[facility], [address] [place] [phone] Notes/Report: Thyroid Stimulating Hormone 2.74 0.32-4.0 uIU/ mL Note: A sustained TSH level above 2.5 uIU/mL may warrant further investigation. TSH 3rd Generation ([facility]) Hold Gold Reviewed date:06/01/2024 12:53:04 PM Interpretation:Reviewed by Dr Jacobo Performing Lab:[address] [address] Notes/Report: Hold Gold See Note Specimen held untested for 24 hours; Call to request Chemistry testing. REASON FOR REFERRAL Reason Mass of upper lobe o f right lung Diagnosis 1 Mass of upper lobe o f right lung (R91.8) [facility], [facility] Referring Provider First Name Markie Referring Provider [...] ce a day Active Vitamin D (Ergocalciferol) 60377 UNIT 1 capsule Orally Once a Week [...] Problem Vitamin D deficiency (E55.9) Active confirmed 18328409 Problem Bipolar disorder, in full remission, most recent episode depressed (F31.76) Active confirmed 68491473 Problem Multiple sclerosis (G35) Active confirmed 83622879 Problem Trigeminal neuralgia (G50.0) Active confirmed 85778657 Problem Essential hypertensi on (I10) Active confirmed 76640041 Problem Hypercholesterolemia (E78.00) Active confirmed 77569283 Problem Malignant neoplasm o f upper lobe of right lung (C34.11) Active confirmed 566442776 VITAL SIGNS Blood pressure diastolic 62 mm Hg 02/28/2024 Height 62.75 in 04/13/2024 Blood pressure systolic 122 mm Hg 02/28/2024 Weight 120 lbs 04/13/2024 BMI 21.42 kg/m2 04/13/2024 Encounters Encounter Location Date Provider Diagnosis Markie Arroyo DO, [facility] [address] [place], [place] [phone] 06/14/2023 Markie Arroyo DO, [facility] [address] [place], [place] [id number] 11/15/2023 Markie Arroyo Bipolar disorder, in full remission, most recent episode depressed F31.76 ; Vitamin D deficiency E55.9 ; Essential hypertension I10 ; Hypercholesterolemia E78.00 and Multiple sclerosis G35 Markie Arroyo DO, [facility] [address] [place], [place] [id number] 01/11/2024 Markie Arroyo Essential hypertensi on I10 ; Hypercholesterolemia E78.00 ; Vitamin D deficiency E55.9 ; Multiple sclerosis G35 ; Bipolar disorder, in full remission, most recent episode depressed F31.76 and Weight loss, unintentional R63.4 Markie Arroyo DO, [facility] [address] [place], [place] [id number] 02/28/2024 Markie Arroyo Malignant neoplasm o f upper lobe of right lung C34.11 ; Bipolar disorder, in full remission, most recent episode depressed F31.76 ; Essential hypertension I10 ; Multiple sclerosis G35 ; Hypercholesterolemia E78.00 and Vitamin D deficiency E55.9 Markie Arroyo DO, [facility] [address] [place], [place] [id number] 04/11/2024 Markie Arroyo Markie Rodriguez Cruz CELIS, [facility] [address] [place], [place] [id number] 11/15/2023 Markie Aden Michael Cruz CELIS, [facility] [address] [place], [place] [id number] 04/13/2024 Markie Arroyo Malignant neoplasm o f upper lobe of right lung C34.11 ; Hypercholesterolemia E78.00 ; Vitamin D deficiency E55.9 ; Bipolar disorder, in full remission, most recent episode depressed F31.76 and Multiple sclerosis G35 Markie Arroyo DO, [facility] [address] [place], [place] [id number] 01/25/2024 Markie Arroyo Mass of upper lobe o f right lung R91.8 ; Essential hypertension I10 ; Hypercholesterolemia E78.00 ; Multiple sclerosis G35 ; Vitamin D deficiency E55.9 and Bipolar disorder, in full remission, most recent episode depressed F31.76 ASSESSMENTS Encounter Date Diagnosis Assessment Notes Treatment Notes Treatment Clinical Notes 11/15/2023 Vitamin D deficiency (ICD-10 - E55.9) [...] o f right lung (ICD-10 - R91.8) 11/15/2023 Essential hypertensi on (ICD-10 - I10) 01/11/2024 Vitamin D deficiency (ICD-10 - E55.9) 02/28/2024 Essential hypertensi on (ICD-10 - I10) Stop lisinopril due to elevated potassium. Low salt diet. 04/13/2024 Vitamin D deficiency (ICD-10 - E55.9) 01/25/2024 Hypercholesterolemia (ICD-10 - E78.00) 11/15/2023 Hypercholesterolemia (ICD-10 - E78.00) 01/11/2024 Multiple sclerosis (ICD-10 - G35) 02/28/2024 Multiple sclerosis (ICD-10 - G35) 04/13/2024 Bipolar disorder, in full remission, most recent episode depressed (ICD-10 - F31.76) 01/25/2024 Multiple sclerosis (ICD-10 - G35) 11/15/2023 Multiple sclerosis (ICD-10 - G35) 01/11/2024 [...] depressed (ICD-10 - F31.76) PLAN OF TREATMENT No Information Insurance Providers Payer Name Payer Address Payer Phone Subscriber Number Group Number Insured Name Patient Relationship to Insured Coverage Start Date Coverage End Date 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
--- OUTSIDE RECORDS SUMMARY | 2024-06-07 14:40 | XMS_ITS ---
Author Organization Markie Arroyo DO, FACP Address [address] [place], [place] [id number] Care Team Providers Care Electronic Technologist Name Role Phone Markie Arroyo Primary Care Provider REASON FOR VISIT 6 week f/u Encounters Encounter Location Date Provider Diagnosis Markie Arroyo DO, FACP [address] [place], [place] [phone] 04/11/2024 Markie Arroyo PLAN OF TREATMENT No Information
--- OUTSIDE RECORDS SUMMARY | 2024-06-07 14:40 | XMS_ITS ---
Author Organization Markie Arroyo DO, FACP Address [address] [place], [place] [phone] Care Team Providers Care Component Assembler Name Role Phone Markie Arroyo Primary Care [...] ce a day Active Vitamin D (Ergocalciferol) 98508 UNIT 1 capsule Orally Once a Week [...] lobe of right lung (C34.11) Active confirmed 221356260 VITAL SIGNS BMI 21.78 kg/m2 02/28/2024 Blood pressure systolic 122 mm Hg 02/28/20 24 Blood pressure diastolic 62 mm Hg 024 Height 62.75 in 02/28/2024 Weight 122 lbs 02/28/2024 Encounters Encounter Location Date Provider Diagnosis Markie Rodriguez Cruz DO, [facility] [address] [place], [place] [phone] 02/28/2024 Markie Boldenman Malignant neoplasm o f [...] Subcutaneous Once a day Vitamin D (Ergocalciferol) 72251 UNIT 1 capsule Orally Once a Week [...] Up: 6 Weeks, Reason: follow up visit Progress Notes * Examination Category Sub-Category Detail Notes General Examination GENERAL APPEARANCE: in no ac southern ute distress, well developed, well nourished HEAD: normocephalic, [...]
--- OUTSIDE RECORDS SUMMARY | 2024-06-07 14:40 | XMS_ITS ---
Author Organization [facility] Address [address] [place] [address] Care Team Providers Care Net Mvc Developer Name Role Phone Markie Arroyo DO Primary Care Provider Unavail able Sanju Colbert Jr Unavailable REASON FOR VISIT Patient presents today for a screening colon Encounters Encounter Location Date Provider Diagnosis [facility] [address] [place] [address] 02/27/2024 Sanju Colbert Jr PLAN OF TREATMENT No Information
== END 2024-06-07 12:59 | disposition home or self-care (01) ==
LOC: HO.MRI 12:58
PROVIDERS: PCP Internal Medicine; Visit Provider Internal Medicine Medical Oncology
DX: C79.31 Secondary malignant neoplasm of brain (principal)
CPT/HCPCS: 70553; A9585

== ENCOUNTER 2024-06-28 13:00 | Outpatient (RCR) | payer MEDICARE, SELFPAY ==
[2024-02-20 11:16] VITALS: BP 116/73; PULSE 82; O2SAT 100; BMI 19.4
--- NOTE | 2024-02-20 11:57 | P.CNHO_ITS ---
Subjective - Subjective Chief complaint: Consult for: Lung carcinoma with brain Mets. Patient: new to practice Consult date: 02/20/24 Requesting Physician: Markie Arroyo DO Primary Care Provider: Markie Arroyo DO Family Provider: Markie Arroyo DO Medical Summary: DIAGNOSIS: BRAIN METASTASES. LUNG CANCER. HPI - Consult Narrative Reason for consult: Consult for: Brain metastases with a primary lung cancer. Narrative: Zackery Duran is a 73 year old gentleman, referred by Dr. Arroyo, on account of lung cancer and brain metastases. Unfortunately the patient has MS. He is under care of Neurology Dr. Sierra. As part of follow-up he proceeded with MRI of the brain on 12/28 which revealed: Multiple new T2 hyperintense, enhancing lesions throughout the cerebellum, thalamus and right frontal, right lobe. While this may represent progressive demyelination, pattern of the new lesions is atypical and superimposed metastatic disease is also possible. 01/25/2024, he underwent CT scan of the chest abdomen and pelvis. This revealed: Irregular mass in the anterior right upper lobe of the lungs. Given the background of emphysema and findings suspicious metastatic disease on recent MRI of the brain, this finding is concerning for a primary lung cancer. 2. Mildly enlarged right precarinal node can not exclude a gerri metastasis. 3. Low-attenuation left adrenal nodule a met is not excluded. 4. 4.7 cm infrarenal aortic aneurysm. 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 Differential includes: Large cell neuroendocrine carcinoma and combined large cell neuroendocrine carcinoma/adenocarcinoma. Molecular testing pending. From 02/16/2024. PET scan from [place] revealed: 3.2 cm irregular mildly spiculated mass in the right upper lobe abutting the anterior pleura shows increased FDG uptake, suspicious for malignancy. Mediastinal lymphadenopathy measuring up to 1.3 cm with mildly increased FDG uptake is mildly suspicious for metastatic disease. Intensely FDG avid left adrenal nodule, suspicious. Infrarenal abdominal aortic aneurysm measuring 4.7 cm. PAST MEDICAL HISTORY: 1. Multiple sclerosis. He is on glutopa injections dail0.y 2. History of trigeminal neuralgia. He had surgery done for it. FAMILY HISTORY: Denies any family history of heme Onc problems. 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 He is not . He has a daughter 46-year-old. He smoked since a young age. Initially 1 pack per day. Recently cut down to 4 cigarettes a day. Denies alcohol. ROS: He actually feels quite well. Denies fatigability. No fever chills no night sweats. Appetite has been low lately. He lost 20 lb over the past 4 years. Denies any headache. Sometimes he feels lightheaded. No chest pain no trouble breathing. He denies abdominal pain, heartburn, nausea or vomiting. Bowels are regular without any gross blood in it. He has had a colonoscopy done. He denies any dysuria nor hematuria. He denies joint pain. His legs are weak. Sometimes he feels depressed. He has bipolar disorder. Usually he is stable on Depakote. No skin rashes no pruritus. Review of Systems - Constitutional Reports system reviewed and no additional complaints, except as documented, Reports weight loss, Denies lack of energy, Denies malaise - Eyes Reports system reviewed and no additional complaints, except as documented - ENT Reports system reviewed and no additional complaints, except as documented - Cardiovascular Reports system reviewed and no additional complaints, except as documented - Respiratory Reports no additional respiratory complaints - Gastrointestinal Reports system reviewed and no additional complaints, except as documented - Genitourinary Genitourinary: Reports no additional male genitourinary complaints - Musculoskeletal Reports system reviewed and no additional complaints, except as documented - Integumentary/Breasts Skin/Breast: Reports no additional skin complaints - Neurologic Reports system reviewed and no additional complaints, except as documented - Psychiatric Reports system reviewed and no additional complaints, except as documented - Endocrine Reports no additional endocrine complaints - Hematologic/Lymphatic Reports system reviewed and no additional complaints, except as documented - Allergic/Immunologic Reports system reviewed and no additional complaints, except as documented Oncology Screenings - ECOG Performance Status ECOG Performance Status: 0 [facility] Medical History: Medical History (Last Reviewed 02/20/24 @ 11:13 by Carlos Mondragon) Arthritis COVID-19 vaccine administered Elevated cholesterol History of trigeminal neuralgia HTN (hypertension) Hx of bipolar disorder Multiple sclerosis Nicotine dependence, cigarettes, uncomplicated Tubular adenoma of colon Functional capacity: independent ambulation Patient : No Surgical History: Surgical History (Last Reviewed 02/20/24 @ 11:13 by Carlos Mondragon) History of colonoscopy History of surgery Hx of cataract surgery Hx of right knee surgery Social History: Social History (Last Updated 02/20/24 @ 11:14 by Carlos Mondragon) Living Situation History: Household Members: None Housing Other:: lives in group home community Are you a primary critical care technician to a significant other at home: No Do you presently have visiting nurse or other home services: No Tobacco History: Patient Tobacco Use Status: Current everyday Tobacco Cigarette Packs Per Day: 1 Years Smoked: 50 Occupation Assessmet: service: Yes Current occupational status: retired Home Medications and Allergies Home Medications ?Medication ?Instructions ?Recorded ?Confirmed ?Type cholecalciferol (vitamin D3) 125 125 mcg PO Q7D 08/13/20 02/20/24 History mcg (5,000 unit) tablet (Vitamin D3) divalproex 500 mg tablet,delayed 1,000 mg PO BEDTIME 08/13/20 02/20/24 History release (Depakote) glatiramer 20 mg/mL subcutaneous 20 mg subcut DAILY 08/13/20 02/20/24 History syringe (Glatopa) lisinopril 20 mg tablet 20 mg PO BEDTIME 08/13/20 02/20/24 History pregabalin 150 mg capsule 150 mg PO TID 08/13/20 02/20/24 History quetiapine 50 mg tablet (Seroquel) 50 mg PO BEDTIME 08/13/20 02/20/24 History simvastatin 20 mg tablet 20 mg PO BEDTIME 08/13/20 02/20/24 History Allergies Allergy/AdvReac Type Severity Reaction Status Date / Time carbamazepine Allergy Intermediate purple rash Verified 02/20/24 11:15 Physical Exam Vital signs: Vital Signs Pulse 82 02/20/24 11:16 BP 116/73 02/20/24 11:16 Pulse Ox 100 02/20/24 11:16 O2 Del Method Room Air 02/20/24 11:16 Intake & Output 02/19/24 02/20/24 02/20/24 18:59 06:59 18:59 Other: Weight 54.4 kg [place] Weight in Grams [id number] Weight 54.4 kg - Constitutional Present: no acute distress - Routine HEENT Exam Head: Present: normal inspection, normocephalic Eye: Present: normal appearance ENT: Present: mucous membranes moist - Routine Neck Exam Present: supple - Routine Respiratory Exam Present: CTAB - Routine Cardiovascular Exam Cardiovascular: Present: RRR, S1, S2 - Routine Abdominal Exam Present: soft, nontender - Routine Extremities Exam Present: nontender. Absent: tenderness - Routine Neurological Exam Present: alert, oriented X3 - Detailed Neurological Exam: Coma Scale Eye Opening: Spontaneous (4) Verbal Response: Oriented (5) - Routine Psychiatric Exam Present: normal affect Hem/Onc Consult Result - Labs CBC & Chem 7: 02/20/24 12:04 02/20/24 12:04 Assessment and Plan Patient Active problem list reviewed?: Yes (1) Non-small cell lung cancer Status: Acute Assessment and plan: 73 year old gentleman, with recent diagnosis of non small cell lung cancer. As part of follow-up he proceeded with MRI of the brain on 12/28 which revealed: Multiple new T2 hyperintense, enhancing lesions throughout the cerebellum, thalamus and right frontal, right lobe. While this may represent progressive demyelination, pattern of the new lesions is atypical and superimposed metastatic disease is also possible. 01/25/2024, he underwent CT scan of the chest abdomen and pelvis. This revealed: Irregular mass in the anterior right upper lobe of the lungs. Given the background of emphysema and findings suspicious metastatic disease on recent MRI of the brain, this finding is concerning for a primary lung cancer. 2. Mildly enlarged right precarinal node can not exclude a gerri metastasis. 3. Low-attenuation left adrenal nodule a met is not excluded. 4. 4.7 cm infrarenal aortic aneurysm. 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 Differential includes: Large cell neuroendocrine carcinoma and combined large cell neuroendocrine carcinoma/adenocarcinoma. Molecular testing pending. From 02/16/2024. PET scan from [place] revealed: 3.2 cm irregular mildly spiculated mass in the right upper lobe abutting the anterior pleura shows increased FDG uptake, suspicious for malignancy. Mediastinal lymphadenopathy measuring up to 1.3 cm with mildly increased FDG uptake is mildly suspicious for metastatic disease. Intensely FDG avid left adrenal nodule, suspicious. Infrarenal abdominal aortic aneurysm measuring 4.7 cm. I shared the above information with him. Mentioned my concern that he has metastatic lung carcinoma. There is concern for brain metastases. However he does have a history of MS, which is confounding the picture. His last MRI was from 12/28. PLAN: I will proceed with an updated MRI of the brain for definitive diagnosis of brain Mets, in to see if there is any progression there. If he does, he would be a candidate for radiation therapy. Meanwhile, I am waiting for the final results of the lung biopsy including the molecular testing. If that shows a mutation he would be a candidate for a targeted agent. If not then systemic chemotherapy would be the way to go. He will return in a couple of weeks for a follow-up visit. All his questions were answered to his satisfaction. Thank you, CC: Dr. Markie Arroyo. Dr. Rock Mckinnon. - Time Spent With Patient Time Spent with Patient (in minutes): 30
[2024-02-20 12:05] LABS: MANUAL DIFF FLAG NO
[2024-02-20 12:09] LABS: Basophils Percent Auto 0.5 % (0-2); Eosinophils Percent Auto 0.4 % (0-4); Imm Gran Abs Auto 0.02 X10*3/uL (0.00-0.03); Imm Gran Pct Auto 0.3 % (0.0-0.4); Lymphocytes Absolute Auto 1.7 X10*3/uL (1.2-4.9); Mean Corpuscular HGB Conc 34.1 g/dl (31.0-36.0); Mean Corpuscular Hemoglobin 33.9 pg (27.0-33.0); Mean Corpuscular Volume 99.5 fL (80.0-98.0); Mean Platelet Volume 10.4 fL (9.4-12.4); Monocytes Absolute Auto 0.8 X10*3/uL (0.1-1.2); Monocytes Percent Auto 10.1 % (2-11); Neutrophils Absolute Auto 4.9 x10*3/uL (2.0-8.3); Neutrophils Percent Auto 65.7 % (45-73); Platelet Count 130 X10*3/uL (160-400); Red Blood Count 4.42 X10*6/uL (4.60-5.80); Red Cell Distribution Width 13.4 % (11.0-16.0); White Blood Count 7.5 X10*3/uL (4.8-10.8)
[2024-02-20 12:33] LABS: Alanine Aminotransferase 18 U/L (0-40); Albumin Level 3.7 g/dL (3.5-5.0); Alkaline Phosphatase 60 U/L (39-117); Anion Gap 8 (12-20); Aspartate Amino Transferase 24 U/L (5-37); Bilirubin Total 0.6 mg/dL (0.0-1.0); Blood Urea Nitrogen 14 mg/dL (9-16); Calcium 9.3 mg/dL (8.4-10.2); Carbon Dioxide 27 mmol/L (22-29); Chloride 111 mmol/L (96-108); Creatinine Clr Calc Pharmacy 61.9; Estimated Glomerular Filt Rate > 60; Glucose Random 106 mg/dL (60-115); Lactate Dehydrogenase 172 U/L (118-273); Potassium 5.4 mmol/L (3.3-5.1); Sodium 141 mmol/L (135-145); Total Protein 6.6 g/dL (6.5-8.0)
[2024-02-20 12:45] LABS: HBS Num1 0.42 mIU/mL (0-7.99); HBc Num1 0.08 S/CO (0.00-0.79); HBsAGNum1 0.34 S/CO (0.00-0.99); Hepatitis B Core Antibody Nonreactive (Nonreactive); Hepatitis B Surface Antigen Negative (Negative); ~HepC Num1 0.12 S/CO (0.00-0.79); ~Hepatitis B Surface Antibody NONREACTIVE (Nonreactive); ~Hepatitis C Antibody Nonreactive (Nonreactive)
--- NOTE | 2024-02-20 14:22 | MHC.HEMONCSW ---
This ticket writer met with Zackery during oncology consult, along with nurse navigator Geneva to discuss questions and concerns at the start of treatment. This ticket writer completed a psychosocial assessment with patient, and gave him information about support services for patients, including support group. Patient did not identify any support needs at this time. This ticket writer will follow up with patient at next appointment.
--- NOTE | 2024-02-22 09:45 | HE.ONCSEC ---
consult notes faxed to pcp
--- NOTE | 2024-02-24 09:58 | HO.HEMONCPA ---
Addendum entered by Denise Flores 05/31/24 14:59: [place] APPROVED FOR PET/CT 29000 AUTH [id number] PER CASSANDRA FOR BLUE/MED SENT TO [facility] FOR SCHEDULING Addendum entered by Denise Flores 05/07/24 16:01: [place] APPROVED FOR NIVOLUMAB J9299 AND IPILIMUMAB [id number] AUTH # [id number] DOS 05/09/24 - 05/30/2025 NIVOLUMAB J9299 - 51 VISITS PILIMUMAB [id number] - 17 VISITS Addendum entered by Denise Flores 05/07/24 13:38: PA PENDING FOR NIVOLUMAB J9299 AND IPILIMUMAB [id number] AWAITING RESPONSE FROM CASSANDRA FOR BLUE CROSS Original Note: [place] APPROVED FOR MRI 17810 AUTH # [id number] DOS 02/24/24 - 04/23/24
[2024-03-05 11:44] VITALS: BP 187/97; PULSE 95; O2SAT 98; BMI 19.4
--- NOTE | 2024-03-05 12:42 | PM.HEMONCPN ---
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 Primary Care Provider: Markie Arroyo DO Medical Summary: DIAGNOSIS: BRAIN METASTASES. LUNG CANCER. Interval History Interval history: Zackery Duran is a 73 year old gentleman, here for a follow-up visit. He is feeling quite well. Sometimes he feels lightheaded. Denies any headache. Denies fatigability. No fever chills no night sweats. No chest pain no trouble breathing. He denies abdominal pain, heartburn, nausea or vomiting. Bowels are regular without any gross blood in it. He has had a colonoscopy done. Appetite is diminished. He has lost 20 lb over the past 4 years. He denies any dysuria nor hematuria. He denies joint pain. His legs are weak. Sometimes he feels depressed. He has bipolar disorder. Usually he is stable on Depakote. No skin rashes no pruritus. PRESENTING HISTORY: He was referred by Dr. Arroyo, on account of lung cancer and brain metastases. Unfortunately the patient has MS. He is under care of Neurology Dr. Sierra. As part of follow-up he proceeded with MRI of the brain on 12/28 which revealed: Multiple new T2 hyperintense, enhancing lesions throughout the cerebellum, thalamus and right frontal, right lobe. While this may represent progressive demyelination, pattern of the new lesions is atypical and superimposed metastatic disease is also possible. 01/25/2024, he underwent CT scan of the chest abdomen and pelvis. This revealed: Irregular mass in the anterior right upper lobe of the lungs. Given the background of emphysema and findings suspicious metastatic disease on recent MRI of the brain, this finding is concerning for a primary lung cancer. 2. Mildly enlarged right precarinal node can not exclude a gerri metastasis. 3. Low-attenuation left adrenal nodule a met is not excluded. 4. 4.7 cm infrarenal aortic aneurysm. 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 Differential includes: Large cell neuroendocrine carcinoma and combined large cell neuroendocrine carcinoma/adenocarcinoma. Molecular testing pending. From 02/16/2024. PET scan from [place] revealed: 3.2 cm irregular mildly spiculated mass in the right upper lobe abutting the anterior pleura shows increased FDG uptake, suspicious for malignancy. Mediastinal lymphadenopathy measuring up to 1.3 cm with mildly increased FDG uptake is mildly suspicious for metastatic disease. Intensely FDG avid left adrenal nodule, suspicious. Infrarenal abdominal aortic aneurysm measuring 4.7 cm. PAST MEDICAL HISTORY: 1. Multiple sclerosis. He is on glutopa injections dail0.y 2. History of trigeminal neuralgia. He had surgery done for it. FAMILY HISTORY: Denies any family history of heme Onc problems. 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 He is not . He has a daughter 46-year-old. He smoked since a young age. Initially 1 pack per day. Recently cut down to 4 cigarettes a day. Denies alcohol. Review of Systems - Constitutional Reports system reviewed and no additional complaints, except as documented, Reports weight loss, Denies lack of energy - Eyes Reports system reviewed and no additional complaints, except as documented - ENT Reports system reviewed and no additional complaints, except as documented, Reports dizziness - Cardiovascular Reports system reviewed and no additional complaints, except as documented - Respiratory Reports no additional respiratory complaints - Gastrointestinal Reports system reviewed and no additional complaints, except as documented - Genitourinary Genitourinary: Reports no additional male genitourinary complaints - Musculoskeletal Reports system reviewed and no additional complaints, except as documented - Integumentary/Breasts Skin/Breast: Reports no additional skin complaints - Neurologic Reports system reviewed and no additional complaints, except as documented - Psychiatric Reports system reviewed and no additional complaints, except as documented - Endocrine Reports no additional endocrine complaints - Hematologic/Lymphatic Reports system reviewed and no additional complaints, except as documented - Allergic/Immunologic Reports system reviewed and no additional complaints, except as documented [facility] Medical History: Medical History (Last Reviewed 03/05/24 @ 11:43 by Carlos Mondragon) Arthritis COVID-19 vaccine administered Elevated cholesterol History of trigeminal neuralgia HTN (hypertension) Hx of bipolar disorder Multiple sclerosis Nicotine dependence, cigarettes, uncomplicated Tubular adenoma of colon Functional capacity: independent ambulation Patient : No Surgical History: Surgical History (Last Reviewed 03/05/24 @ 11:43 by Carlos Mondragon) History of colonoscopy History of surgery Hx of cataract surgery Hx of right knee surgery Social History: Social History (Last Reviewed 03/05/24 @ 11:43 by Carlos Mondragon) Living Situation History: Household Members: None Housing Other:: lives in prison community Are you a primary child care education coordinator to a significant other at home: No Do you presently have visiting nurse or other home services: No Alcohol History Details: 1. How often do you have a drink containing alcohol?: a. Never Tobacco History: Patient Tobacco Use Status: Current everyday Tobacco Cigarette Packs Per Day: 1 Years Smoked: 50 Substance Use History: Use of substances other than those prescribed or required for medical reasons: No Domestic Abuse History: Have you been hit, kicked, punched, or otherwise hurt by someone within the past year? If so, by whom?: No Do you feel safe in your current relationship?: Yes Homicidal Assessment: Do you have thoughts of harming others: None Do you have a plan to hurt others: No Plan Nutrition Assessment: Patient : No Occupation Assessmet: service: Yes Current occupational status: retired Oncology Screenings - ECOG Performance Status ECOG Performance Status: 0 Home Medications and Allergies Home Medications ?Medication ?Instructions ?Recorded ?Confirmed ?Type cholecalciferol (vitamin D3) 125 125 mcg PO Q7D 08/13/20 03/05/24 History mcg (5,000 unit) tablet (Vitamin D3) divalproex 500 mg tablet,delayed 1,000 mg PO BEDTIME 08/13/20 03/05/24 History release (Depakote) glatiramer 20 mg/mL subcutaneous 20 mg subcut DAILY 08/13/20 03/05/24 History syringe (Glatopa) lisinopril 20 mg tablet 20 mg PO BEDTIME 08/13/20 03/05/24 History pregabalin 150 mg capsule 150 mg PO TID 08/13/20 03/05/24 History quetiapine 50 mg tablet (Seroquel) 50 mg PO BEDTIME 08/13/20 03/05/24 History simvastatin 20 mg tablet 20 mg PO BEDTIME 08/13/20 03/05/24 History Allergies Allergy/AdvReac Type Severity Reaction Status Date / Time carbamazepine Allergy Intermediate purple rash Verified 03/05/24 11:43 Exam Vital signs: Vital Signs Pulse 95 03/05/24 11:44 BP 187/97 H 03/05/24 11:44 Pulse Ox 98 03/05/24 11:44 O2 Del Method Room Air 03/05/24 11:44 Intake & Output 03/04/24 03/05/24 03/05/24 18:59 06:59 18:59 Other: Weight 54.5 kg Weight in Grams 00520 Weight 54.5 kg BMI result Body Mass Index 19.4 - Constitutional Present: no acute distress - Routine HEENT Exam Head: Present: normal inspection, normocephalic Eye: Present: normal appearance ENT: Present: mucous membranes moist - Routine Neck Exam Present: full ROM - Routine Respiratory Exam Present: CTAB - Routine Cardiovascular Exam Cardiovascular: Present: RRR, S1, S2 - Routine Abdominal Exam Present: soft, nontender - Routine Extremities Exam Present: nontender. Absent: tenderness - Routine Back/Spine/Pelvis Exam Back/Spine: Present: full ROM - Routine Skin Exam Present: intact - Routine Neurological Exam Present: alert, oriented X3 - Detailed Neurological Exam: Coma Scale Eye Opening: Spontaneous (4) - Routine Psychiatric Exam Present: normal affect Data - Labs CBC & Chem 7: 02/20/24 12:04 02/20/24 12:04 Labs: Laboratory Last Values WBC 7.5 X10*3/uL (4.8-10.8) 02/20/24 12:04 RBC 4.42 X10*6/uL (4.60-5.80) L 02/20/24 12:04 Hgb 15.0 g/dl (14.0-18.0) 02/20/24 12:04 Hct 44.0 % (42.0-52.0) 02/20/24 12:04 MCV 99.5 fL (80.0-98.0) H 02/20/24 12:04 MCH 33.9 pg (27.0-33.0) H 02/20/24 12:04 MCHC 34.1 g/dl (31.0-36.0) 02/20/24 12:04 RDW 13.4 % (11.0-16.0) 02/20/24 12:04 Plt Count 130 X10*3/uL (160-400) L 02/20/24 12:04 MPV 10.4 fL (9.4-12.4) 02/20/24 12:04 Immature Gran % (Auto) 0.3 % (0.0-0.4) 02/20/24 12:04 Neut % (Auto) 65.7 % (45-73) 02/20/24 12:04 Lymph % (Auto) 23.0 % (20-40) 02/20/24 12:04 [place] % (Auto) 10.1 % (2-11) 02/20/24 12:04 Eos % (Auto) 0.4 % (0-4) 02/20/24 12:04 Baso % (Auto) 0.5 % (0-2) 02/20/24 12:04 Lymph # (Auto) 1.7 X10*3/uL (1.2-4.9) 02/20/24 12:04 [place] # (Auto) 0.8 X10*3/uL (0.1-1.2) 02/20/24 12:04 Eos # (Auto) 0.0 X10*3/uL (0.0-0.4) 02/20/24 12:04 Baso # (Auto) 0.0 X10*3/uL (0.0-0.2) 02/20/24 12:04 Abs Immat Gran (auto) 0.02 X10*3/uL (0.00-0.03) 02/20/24 12:04 Absolute Neuts (auto) 4.9 x10*3/uL (2.0-8.3) 02/20/24 12:04 Absolute Nucleated RBC 0.000 X10*3/uL (0.0-0.012) 02/20/24 12:04 Nucleated RBC % (auto) 0.0 /100WBC (0.0-0.2) 02/20/24 12:04 Sodium 141 mmol/L (135-145) 02/20/24 12:04 Potassium 5.4 mmol/L (3.3-5.1) H 02/20/24 12:04 Chloride 111 mmol/L (96-108) H 02/20/24 12:04 Carbon Dioxide 27 mmol/L (22-29) 02/20/24 12:04 Anion Gap 8 (12-20) L 02/20/24 12:04 BUN 14 mg/dL (9-16) 02/20/24 12:04 Creatinine 0.83 mg/dL (0.5-1.4) 02/20/24 12:04 Estim Creat Clear Calc 61.9 02/20/24 12:04 Estimated GFR > 60 02/20/24 12:04 Random Glucose 106 mg/dL (60-115) 02/20/24 12:04 Calcium 9.3 mg/dL (8.4-10.2) 02/20/24 12:04 Total Bilirubin 0.6 mg/dL (0.0-1.0) 02/20/24 12:04 AST 24 U/L (5-37) 02/20/24 12:04 ALT 18 U/L (0-40) 02/20/24 12:04 Alkaline Phosphatase 60 U/L (39-117) 02/20/24 12:04 Lactate Dehydrogenase 172 U/L (118-273) 02/20/24 12:04 Total Protein 6.6 g/dL (6.5-8.0) 02/20/24 12:04 Albumin 3.7 g/dL (3.5-5.0) 02/20/24 12:04 Carcinoembryonic Ag 2.50 ng/mL 02/20/24 12:04 Hep Bs Antigen Negative (Negative) 02/20/24 12:04 Hep Bs Antibody NONREACTIVE (Nonreactive) 02/20/24 12:04 Hep B Core Total Ab Nonreactive (Nonreactive) 02/20/24 12:04 Hepatitis C Ab (EIA) Nonreactive (Nonreactive) 02/20/24 12:04 Assessment and Plan Patient Active problem list reviewed?: Yes (1) Non-small cell lung cancer Status: Acute Assessment and plan: 73 year old gentleman, with recent diagnosis of non small cell lung cancer. As part of follow-up he proceeded with MRI of the brain on 12/28 which revealed: Multiple new T2 hyperintense, enhancing lesions throughout the cerebellum, thalamus and right frontal, right lobe. While this may represent progressive demyelination, pattern of the new lesions is atypical and superimposed metastatic disease is also possible. 01/25/2024, he underwent CT scan of the chest abdomen and pelvis. This revealed: Irregular mass in the anterior right upper lobe of the lungs. Given the background of emphysema and findings suspicious metastatic disease on recent MRI of the brain, this finding is concerning for a primary lung cancer. 2. Mildly enlarged right precarinal node can not exclude a gerri metastasis. 3. Low-attenuation left adrenal nodule a met is not excluded. 4. 4.7 cm infrarenal aortic aneurysm. 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 Differential includes: Large cell neuroendocrine carcinoma and combined large cell neuroendocrine carcinoma/adenocarcinoma. Molecular testing pending. From 02/16/2024. PET scan from [place] revealed: 3.2 cm irregular mildly spiculated mass in the right upper lobe abutting the anterior pleura shows increased FDG uptake, suspicious for malignancy. Mediastinal lymphadenopathy measuring up to 1.3 cm with mildly increased FDG uptake is mildly suspicious for metastatic disease. Intensely FDG avid left adrenal nodule, suspicious. Infrarenal abdominal aortic aneurysm measuring 4.7 cm. I shared the above information with him. Mentioned my concern that he has metastatic lung carcinoma. There is concern for brain metastases. However he does have a history of MS, which is confounding the picture. His last MRI was from 12/28. I proceeded with an updated MRI of the brain for definitive diagnosis of brain Mets, and to see if there is any progression there. This was done on 02/23 and revealed: There are multiple ring-enhancing intracranial masses most likely representing metastatic disease in a patient with a known history of a lung carcinoma. The dominant lesion is located within the right cerebellar hemisphere measuring 1.8 cm in maximal dimension. The second dominant lesion located within the left periatrial white matter measures 1.0 cm in maximal dimension. A right thalamic lesion measures up to 0.9 cm in maximal dimension. There are at least 7 additional much smaller and faintly enhancing nodular lesions involving both cerebral hemispheres and cerebellum. There are chronic postoperative changes of a right retromastoid craniotomy, potentially related to a biopsy of the dominant right cerebellar mass. Comparison with prior imaging is therefore recommended if available to assess the stability of these lesions. No substantial intracranial mass effect. No midline shift or hydrocephalus. PLAN: He would be a candidate for radiation therapy. Appointment has been set up for 03/08 at 01:[address] Mckinnon. Final results of the molecular testing, revealed: Positive PD-L1 with a CPS score of 2. He is a candidate for a targeted agent, nivolumab or pembrolizumab. It can be combined with chemotherapy. He will return in a couple of weeks for a follow-up visit. All his questions were answered to his satisfaction. Thank you, CC: Dr. Markie Arroyo. Dr. Rock Mckinnon. - Time Spent With Patient Time Spent with Patient (in minutes): 25
--- NOTE | 2024-05-07 09:11 | P.PNHO-ONC_ITS ---
Medical Summary - Medical Summary Date of Service: 05/07/24 Chief complaint: Follow-up for: Ryi-livcn-rczk lung carcinoma. Brain Mets. Primary Care Provider: Markie Arroyo DO Medical Summary: DIAGNOSIS: BRAIN METASTASES. LUNG CANCER. Interval History Interval history: Zackery Duran is a 73 year old gentleman, here for a follow-up visit. He completed radiation therapy to the brain on 04/12. He tolerated it quite well however he feels very fatigued. His appetite has not been that good. Lost 10 lb. Denies any headache. Sometimes he feels lightheaded. No fever chills no night sweats. He has a bit of a cough. No sputum production. No chest pain nor trouble breathing. He denies abdominal pain, heartburn, nausea or vomiting. Bowels are regular without any gross blood in it. He has had a colonoscopy done. He denies any dysuria nor hematuria. He denies joint pain. His legs are weak. Sometimes he feels depressed. He has bipolar disorder. Usually he is stable on Depakote. No skin rashes no pruritus. PRESENTING HISTORY: He was referred by Dr. Arroyo, on account of lung cancer and brain metastases. Unfortunately the patient has MS. He is under care of Neurology Dr. Sierra. As part of follow-up he proceeded with MRI of the brain on 12/28 which revealed: Multiple new T2 hyperintense, enhancing lesions throughout the cerebellum, thalamus and right frontal, right lobe. While this may represent progressive demyelination, pattern of the new lesions is atypical and superimposed metastatic disease is also possible. 01/25/2024, he underwent CT scan of the chest abdomen and pelvis. This revealed: Irregular mass in the anterior right upper lobe of the lungs. Given the background of emphysema and findings suspicious metastatic disease on recent MRI of the brain, this finding is concerning for a primary lung cancer. 2. Mildly enlarged right precarinal node can not exclude a gerri metastasis. 3. Low-attenuation left adrenal nodule a met is not excluded. 4. 4.7 cm infrarenal aortic aneurysm. 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 Differential includes: Large cell neuroendocrine carcinoma and combined large cell neuroendocrine carcinoma/adenocarcinoma. Molecular testing pending. From 02/16/2024. PET scan from [place] revealed: 3.2 cm irregular mildly spiculated mass in the right upper lobe abutting the anterior pleura shows increased FDG uptake, suspicious for malignancy. Mediastinal lymphadenopathy measuring up to 1.3 cm with mildly increased FDG uptake is mildly suspicious for metastatic disease. Intensely FDG avid left adrenal nodule, suspicious. Infrarenal abdominal aortic aneurysm measuring 4.7 cm. PAST MEDICAL HISTORY: 1. Multiple sclerosis. He is on glutopa injections dail0.y 2. History of trigeminal neuralgia. He had surgery done for it. FAMILY HISTORY: Denies any family history of heme Onc problems. 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 He is not . He has a daughter 46-year-old. He smoked since a young age. Initially 1 pack per day. Recently cut down to 4 cigarettes a day. Denies alcohol. Review of Systems - Constitutional Reports system reviewed and no additional complaints, except as documented, Reports fatigue, Reports lack of energy, Reports malaise, Reports weight loss, Denies fever(s) - Eyes Reports system reviewed and no additional complaints, except as documented - ENT Reports system reviewed and no additional complaints, except as documented - Cardiovascular Reports system reviewed and no additional complaints, except as documented - Respiratory Reports no additional respiratory complaints - Gastrointestinal Reports system reviewed and no additional complaints, except as documented - Genitourinary Genitourinary: Reports no additional male genitourinary complaints - Musculoskeletal Reports system reviewed and no additional complaints, except as documented - Integumentary/Breasts Skin/Breast: Reports no additional skin complaints - Neurologic Reports system reviewed and no additional complaints, except as documented, Reports dizziness - Psychiatric Reports system reviewed and no additional complaints, except as documented - Endocrine Reports no additional endocrine complaints - Hematologic/Lymphatic Reports system reviewed and no additional complaints, except as documented - Allergic/Immunologic Reports system reviewed and no additional complaints, except as documented PMFSH Medical History: Medical History (Last Reviewed 03/05/24 @ 11:43 by Carlos Mondragon) Arthritis COVID-19 vaccine administered Elevated cholesterol History of trigeminal neuralgia HTN (hypertension) Hx of bipolar disorder Multiple sclerosis Nicotine dependence, cigarettes, uncomplicated Tubular adenoma of colon Functional capacity: independent ambulation Patient : No Surgical History: Surgical History (Last Reviewed 03/05/24 @ 11:43 by Carlos Mondragon) History of colonoscopy History of surgery Hx of cataract surgery Hx of right knee surgery Social History: Social History (Last Reviewed 05/07/24 @ 09:34 by Dacia Rowan RN) Living Situation History: Household Members: None Housing Other:: lives in [facility] community Are you a primary nurse behavioral health care to a significant other at home: No Do you presently have visiting nurse or other home services: No Tobacco History: Patient Tobacco Use Status: Current everyday Tobacco Cigarette Packs Per Day: 1 Years Smoked: 50 Occupation Assessmet: service: Yes Current occupational status: retired Oncology Screenings - ECOG Performance Status ECOG Performance Status: 0 Home Medications and Allergies Home Medications ?Medication ?Instructions ?Recorded ?Confirmed ?Type cholecalciferol (vitamin D3) 125 125 mcg PO Q7D 08/13/20 05/07/24 History mcg (5,000 unit) tablet (Vitamin D3) divalproex 500 mg tablet,delayed 1,000 mg PO BEDTIME 08/13/20 05/07/24 History release (Depakote) glatiramer 20 mg/mL subcutaneous 20 mg subcut DAILY 08/13/20 05/07/24 History syringe (Glatopa) lisinopril 20 mg tablet 20 mg PO BEDTIME 08/13/20 05/07/24 History pregabalin 150 mg capsule 150 mg PO TID 08/13/20 05/07/24 History quetiapine 50 mg tablet (Seroquel) 50 mg PO BEDTIME 08/13/20 05/07/24 History simvastatin 20 mg tablet 20 mg PO BEDTIME 08/13/20 05/07/24 History Allergies Allergy/AdvReac Type Severity Reaction Status Date / Time carbamazepine Allergy Intermediate purple rash Verified 05/07/24 09:36 Exam Vital signs: Vital Signs Pulse 95 03/05/24 11:44 BP 187/97 H 03/05/24 11:44 Pulse Ox 98 03/05/24 11:44 O2 Del Method Room Air 03/05/24 11:44 Weight 54.5 kg BMI result Body Mass Index 19.4 - Constitutional Present: no acute distress - Routine HEENT Exam Head: Present: normal inspection, normocephalic Eye: Present: normal appearance ENT: Present: mucous membranes moist - Routine Neck Exam Present: full ROM - Routine Respiratory Exam Present: CTAB - Routine Cardiovascular Exam Cardiovascular: Present: RRR, S1, S2 - Routine Abdominal Exam Present: soft, nontender - Routine Extremities Exam Present: nontender. Absent: tenderness - Routine Back/Spine/Pelvis Exam Back/Spine: Present: full ROM - Routine Skin Exam Present: intact - Routine Neurological Exam Present: alert, oriented X3 - Detailed Neurological Exam: Coma Scale Eye Opening: Spontaneous (4) - Routine Psychiatric Exam Present: normal affect Data - Labs CBC & Chem 7: 05/07/24 09:29 12 09:29 Assessment and Plan Patient Active problem list reviewed?: Yes (1) Non-small cell lung cancer Status: Acute Assessment and plan: 73 year old gentleman, with recent diagnosis of non small cell lung cancer. As part of follow-up he proceeded with MRI of the brain on 12/28 which revealed: Multiple new T2 hyperintense, enhancing lesions throughout the cerebellum, thalamus and right frontal, right lobe. While this may represent progressive demyelination, pattern of the new lesions is atypical and superimposed metastatic disease is also possible. 01/25/2024, he underwent CT scan of the chest abdomen and pelvis. This revealed: Irregular mass in the anterior right upper lobe of the lungs. Given the background of emphysema and findings suspicious metastatic disease on recent MRI of the brain, this finding is concerning for a primary lung cancer. 2. Mildly enlarged right precarinal node can not exclude a gerri metastasis. 3. Low-attenuation left adrenal nodule a met is not excluded. 4. 4.7 cm infrarenal aortic aneurysm. 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 Differential includes: Large cell neuroendocrine carcinoma and combined large cell neuroendocrine carcinoma/adenocarcinoma. Final results of the molecular testing, revealed: Positive PD-L1 with a CPS score of 2. From 02/16/2024. PET scan from [place] revealed: 3.2 cm irregular mildly spiculated mass in the right upper lobe abutting the anterior pleura shows increased FDG uptake, suspicious for malignancy. Mediastinal lymphadenopathy measuring up to 1.3 cm with mildly increased FDG uptake is mildly suspicious for metastatic disease. Intensely FDG avid left adrenal nodule, suspicious. Infrarenal abdominal aortic aneurysm measuring 4.7 cm. I shared the above information with him. Mentioned my concern that he has metastatic lung carcinoma. There is concern for brain metastases. However he does have a history of MS, which is confounding the picture. His last MRI was from 12/28. I proceeded with an updated MRI of the brain for definitive diagnosis of brain Mets, and to see if there is any progression there. This was done on 02/23 and revealed: There are multiple ring-enhancing intracranial masses most likely representing metastatic disease in a patient with a known history of a lung carcinoma. The dominant lesion is located within the right cerebellar hemisphere measuring 1.8 cm in maximal dimension. The second dominant lesion located within the left periatrial white matter measures 1.0 cm in maximal dimension. A right thalamic lesion measures up to 0.9 cm in maximal dimension. There are at least 7 additional much smaller and faintly enhancing nodular lesions involving both cerebral hemispheres and cerebellum. There are chronic postoperative changes of a right retromastoid craniotomy, potentially related to a biopsy of the dominant right cerebellar mass. Comparison with prior imaging is therefore recommended if available to assess the stability of these lesions. No substantial intracranial mass effect. No midline shift or hydrocephalus. He was considered to be a candidate for radiation therapy. An appointment was set up for 03/08 at 01:[address] Mckinnon. He completed radiation therapy to the brain on 04/12. He did well. He would now be moving on to the next phase of treatment for his lung cancer. He is a candidate for immunotherapy with ipilimumab and nivolumab. PLAN: Was given information about the above regimen. His last CT chest was few months ago so will update that. He will then be started on the treatment. I sent the antiemetics to his pharmacy. Meanwhile he will try to eat better and build himself up in preperation. He will return in a couple of weeks for a follow-up visit. All his questions were answered to his satisfaction. Thank you, CC: Dr. Markie Arroyo. Dr. Rock Mckinnon. - Time Spent With Patient Time Spent with Patient (in minutes): 25
[2024-05-07 09:29] VITALS: BP 135/74; PULSE 87; RESP 18; TEMP 36.4; O2SAT 100; BMI 17.9
[2024-05-07 09:32] LABS: MANUAL DIFF FLAG NO
--- NOTE | 2024-05-07 09:39 | MHC.HEMONC ---
Addendum entered by Dacia Rowan RN 05/07/24 11:54: Pt is going to start Nivolumab and Ipilimumab. Treatment Plan given to Sarah for PA. Chart started. Pt given information sheets on medications. Pt aware we will call to set up teach and first treatment once PA obtained. Original Note: follow up Lung CA mets to brain. S/P radiation to brain. Labs drawn. VSS. Summary updated.
[2024-05-07 09:43] LABS: Basophils Percent Auto 0.7 % (0-2); Eosinophils Absolute Auto 0.1 X10*3/uL (0.0-0.4); Eosinophils Percent Auto 1.9 % (0-4); Hematocrit 41.1 % (42.0-52.0); Imm Gran Abs Auto 0.02 X10*3/uL (0.00-0.03); Imm Gran Pct Auto 0.3 % (0.0-0.4); Lymphocytes Absolute Auto 1.8 X10*3/uL (1.2-4.9); Lymphocytes Percent Auto 31.4 % (20-40); Mean Corpuscular HGB Conc 34.1 g/dl (31.0-36.0); Mean Corpuscular Hemoglobin 34.1 pg (27.0-33.0); Mean Corpuscular Volume 100.2 fL (80.0-98.0); Mean Platelet Volume 10.3 fL (9.4-12.4); Monocytes Absolute Auto 0.6 X10*3/uL (0.1-1.2); Monocytes Percent Auto 9.9 % (2-11); Neutrophils Absolute Auto 3.3 x10*3/uL (2.0-8.3); Neutrophils Percent Auto 55.8 % (45-73); Platelet Count 91 X10*3/uL (160-400); Red Cell Distribution Width 13.2 % (11.0-16.0); White Blood Count 5.9 X10*3/uL (4.8-10.8)
[2024-05-07 09:57] LABS: Alanine Aminotransferase 17 U/L (0-40); Albumin Level 3.8 g/dL (3.5-5.0); Alkaline Phosphatase 42 U/L (39-117); Anion Gap 10 (12-20); Aspartate Amino Transferase 35 U/L (5-37); Bilirubin Total 0.5 mg/dL (0.0-1.0); Blood Urea Nitrogen 27 mg/dL (9-16); Calcium 9.6 mg/dL (8.4-10.2); Carbon Dioxide 28 mmol/L (22-29); Chloride 109 mmol/L (96-108); Creatinine Clr Calc Pharmacy 54.7; Estimated Glomerular Filt Rate > 60; Glucose Random 106 mg/dL (60-115); Sodium 142 mmol/L (135-145); Total Protein 6.7 g/dL (6.5-8.0)
--- NOTE | 2024-05-09 13:09 | MHC.HEMONC ---
Nurse called pt, booked him for new start of Nivolumab/Ipilimumab on , 05/17/24 at 1pm, informed pt he already had necessary labs drawn, but in the future, he'll need to have blood work done on same day as tx or 1-2 days prior, so 1 pm start time may not continue to work unless he comes for labs day before. Pt declined to have chemoteach in advance, said he'd prefer to just discuss the treatment details and possible side-effects same day as his new start. Nurse confirmed PA was obtained by Denise, notified chemo pharmacy by email, left request for Dr. Gipson to send him scrip for home PO zoya.
[2024-05-17 11:13] VITALS: BP 119/69; PULSE 89; O2SAT 99; BMI 17.7
[2024-05-17 11:57] LABS: MANUAL DIFF FLAG NO
[2024-05-17 12:00] LABS: Basophils Percent Auto 0.6 % (0-2); Eosinophils Absolute Auto 0.1 X10*3/uL (0.0-0.4); Eosinophils Percent Auto 0.8 % (0-4); Hematocrit 38.1 % (42.0-52.0); Hemoglobin 13.2 g/dl (14.0-18.0); Imm Gran Abs Auto 0.03 X10*3/uL (0.00-0.03); Imm Gran Pct Auto 0.5 % (0.0-0.4); Lymphocytes Absolute Auto 1.3 X10*3/uL (1.2-4.9); Lymphocytes Percent Auto 20.7 % (20-40); Mean Corpuscular HGB Conc 34.6 g/dl (31.0-36.0); Mean Corpuscular Hemoglobin 34.4 pg (27.0-33.0); Mean Corpuscular Volume 99.2 fL (80.0-98.0); Mean Platelet Volume 10.2 fL (9.4-12.4); Monocytes Absolute Auto 0.7 X10*3/uL (0.1-1.2); Monocytes Percent Auto 10.6 % (2-11); Neutrophils Absolute Auto 4.2 x10*3/uL (2.0-8.3); Neutrophils Percent Auto 66.8 % (45-73); Platelet Count 124 X10*3/uL (160-400); Red Blood Count 3.84 X10*6/uL (4.60-5.80); Red Cell Distribution Width 13.2 % (11.0-16.0); White Blood Count 6.3 X10*3/uL (4.8-10.8)
[2024-05-17] MEDS: Famotidine/PF 20 MG/2 ML VIAL IVPUSH (12:20)
[2024-05-17] MEDS: diphenhydrAMINE HCL 50 MG/ML VIAL 25 MG IVPUSH (12:20)
[2024-05-17] MEDS: Acetaminophen 325 MG TABLET 650 MG PO (12:20)
[2024-05-17] MEDS: dexAMETHasone 6 MG TABLET 12 MG PO (12:21)
[2024-05-17] MEDS: Ondansetron ODT 8 MG TAB.RAPDIS TRANSLINGU (12:21)
[2024-05-17 12:27] LABS: Alanine Aminotransferase 14 U/L (0-40); Albumin Level 3.6 g/dL (3.5-5.0); Alkaline Phosphatase 39 U/L (39-117); Amylase 57 U/L (28-100); Anion Gap 10 (12-20); Aspartate Amino Transferase 35 U/L (5-37); Bilirubin Direct 0.2 mg/dL (0.0-0.5); Bilirubin Total 0.6 mg/dL (0.0-1.0); Blood Urea Nitrogen 23 mg/dL (9-16); Calcium 9.2 mg/dL (8.4-10.2); Carbon Dioxide 29 mmol/L (22-29); Chloride 110 mmol/L (96-108); Creatinine Clr Calc Pharmacy 52.2; Estimated Glomerular Filt Rate > 60; Glucose Random 134 mg/dL (60-115); Lipase 16 U/L (8-78); Potassium 5.5 mmol/L (3.3-5.1); Sodium 143 mmol/L (135-145); Total Protein 6.5 g/dL (6.5-8.0)
[2024-05-17 12:41] LABS: Thyroid Stimulating Hormone 3.36 uIU/mL (0.32-4.0)
[2024-05-17] MEDS: SODIUM CHLORIDE 0.9% IV ×2 (12:58→13:46)
[2024-05-17] MEDS: NIVOLUMAB IV (12:58)
[2024-05-17] MEDS: IPILIMUMAB IV (13:46)
--- NOTE | 2024-05-17 16:09 | MHC.HEMONC ---
Pt is here for C1 D1 Ipilimumab/Nivolumab. Labs drawn as ordered. Pt is here with his S.Hernando Salguero. Chemo teach done, discussing treatment plan, when to call, infusion reaction, side effects. All questions answered. Consent signed. IV placed right forearm with good blood return noted. Premeds given as ordered. Treatment done and tolerated well. No s/s infusion reaction. Pt given departure packet with next appointment. Aware of when to call with any problems/questions. Iv removed with no redness or swelling at the site. Pt brought to front in wheelchair.
[2024-05-31 13:25] VITALS: BP 138/74; PULSE 74; RESP 18; TEMP 36.3; O2SAT 96; BMI 17.8
[2024-05-31 13:32] LABS: MANUAL DIFF FLAG NO
[2024-05-31 13:41] LABS: Basophils Percent Auto 0.4 % (0-2); Eosinophils Percent Auto 0.4 % (0-4); Hematocrit 38.1 % (42.0-52.0); Hemoglobin 12.9 g/dl (14.0-18.0); Imm Gran Abs Auto 0.04 X10*3/uL (0.00-0.03); Imm Gran Pct Auto 0.6 % (0.0-0.4); Lymphocytes Absolute Auto 1.4 X10*3/uL (1.2-4.9); Lymphocytes Percent Auto 19.8 % (20-40); Mean Corpuscular HGB Conc 33.9 g/dl (31.0-36.0); Mean Corpuscular Hemoglobin 33.9 pg (27.0-33.0); Mean Platelet Volume 10.6 fL (9.4-12.4); Monocytes Absolute Auto 0.8 X10*3/uL (0.1-1.2); Monocytes Percent Auto 10.5 % (2-11); Neutrophils Percent Auto 68.3 % (45-73); Platelet Count 92 X10*3/uL (160-400); Red Blood Count 3.81 X10*6/uL (4.60-5.80); Red Cell Distribution Width 14.5 % (11.0-16.0); White Blood Count 7.3 X10*3/uL (4.8-10.8)
--- NOTE | 2024-05-31 14:00 | P.PNHO-ONC_ITS ---
Medical Summary - Medical Summary Date of Service: 05/31/24 Chief complaint: Follow-up for: [id number] lung ca, with Brain mets. Primary Care Provider: Markie Arroyo DO Medical Summary: DIAGNOSIS: BRAIN METASTASES. LUNG CANCER. CURRENT THERAPY: Status post completion of radiation therapy to the head 04/12/24. Started on systemic chemotherapy with ipilimumab and nivolumab, on 05/17. Here for Nivolumab. Interval History Interval history: Zackery Duran is a 73 year old gentleman, here for a follow-up visit. He started the immunotherapy on 05/17. He is here to receive day 15 nivolumab. He tolerated the treatment reasonably well. Denies noticing any side effects. He did not have any hypersensitivity reaction or skin rash. No nausea or vomiting. He has the Zofran. He denies feeling too fatigued. His appetite has been better. His weight is stable. He denies any headache nor dizziness. No fever chills no night sweats. He denies a cough. No sputum production. No chest pain nor trouble breathing. He denies abdominal pain, heartburn, nausea or vomiting. Bowels are regular without any gross blood in it. He has had a colonoscopy done. He denies any dysuria nor hematuria. He denies joint pain. He moves slowly. Sometimes he feels depressed. He has bipolar disorder. He is stable on Depakote. No skin rashes no pruritus. He completed radiation therapy to the brain on 04/12/24. PRESENTING HISTORY: He was referred by Dr. Arroyo, on account of lung cancer and brain metastases. Unfortunately the patient has MS. He is under care of Neurology Dr. Sierra. As part of follow-up he proceeded with MRI of the brain on 12/28 which revealed: Multiple new T2 hyperintense, enhancing lesions throughout the cerebellum, thalamus and right frontal, right lobe. While this may represent progressive demyelination, pattern of the new lesions is atypical and superimposed metastatic disease is also possible. 01/25/2024, he underwent CT scan of the chest abdomen and pelvis. This revealed: Irregular mass in the anterior right upper lobe of the lungs. Given the background of emphysema and findings suspicious metastatic disease on recent MRI of the brain, this finding is concerning for a primary lung cancer. 2. Mildly enlarged right precarinal node can not exclude a gerri metastasis. 3. Low-attenuation left adrenal nodule a met is not excluded. 4. 4.7 cm infrarenal aortic aneurysm. 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 Differential includes: Large cell neuroendocrine carcinoma and combined large cell neuroendocrine carcinoma/adenocarcinoma. Molecular testing pending. From 02/16/2024. PET scan from [place] revealed: 3.2 cm irregular mildly spiculated mass in the right upper lobe abutting the anterior pleura shows increased FDG uptake, suspicious for malignancy. Mediastinal lymphadenopathy measuring up to 1.3 cm with mildly increased FDG uptake is mildly suspicious for metastatic disease. Intensely FDG avid left adrenal nodule, suspicious. Infrarenal abdominal aortic aneurysm measuring 4.7 cm. PAST MEDICAL HISTORY: 1. Multiple sclerosis. He is on glutopa injections dail0.y 2. History of trigeminal neuralgia. He had surgery done for it. FAMILY HISTORY: Denies any family history of heme Onc problems. 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 He is not . He has a daughter 46-year-old. He smoked since a young age. Initially 1 pack per day. Recently cut down to 4 cigarettes a day. Denies alcohol. Review of Systems - Constitutional Reports system reviewed and no additional complaints, except as documented, Reports lack of energy, Reports weight gain - Eyes Reports system reviewed and no additional complaints, except as documented - ENT Reports system reviewed and no additional complaints, except as documented - Cardiovascular Reports system reviewed and no additional complaints, except as documented - Respiratory Reports no additional respiratory complaints - Gastrointestinal Reports system reviewed and no additional complaints, except as documented - Genitourinary Genitourinary: Reports no additional male genitourinary complaints - Musculoskeletal Reports system reviewed and no additional complaints, except as documented - Integumentary/Breasts Skin/Breast: Reports no additional skin complaints - Neurologic Reports system reviewed and no additional complaints, except as documented, Reports dizziness - Psychiatric Reports system reviewed and no additional complaints, except as documented - Endocrine Reports no additional endocrine complaints - Hematologic/Lymphatic Reports system reviewed and no additional complaints, except as documented - Allergic/Immunologic Reports system reviewed and no additional complaints, except as documented [facility] Medical History: Medical History (Last Reviewed 03/05/24 @ 11:43 by Carlos Mondragon) Arthritis COVID-19 vaccine administered Elevated cholesterol History of trigeminal neuralgia HTN (hypertension) Hx of bipolar disorder Multiple sclerosis Nicotine dependence, cigarettes, uncomplicated Tubular adenoma of colon Functional capacity: independent ambulation Patient : No Surgical History: Surgical History (Last Reviewed 03/05/24 @ 11:43 by Carlos Mondragon) History of colonoscopy History of surgery Hx of cataract surgery Hx of right knee surgery Social History: Social History (Last Reviewed 05/07/24 @ 09:34 by Dacia Rowan RN) Living Situation History: Household Members: None Housing Other:: lives in jail community Are you a primary care technician to a significant other at home: No Do you presently have visiting nurse or other home services: No Tobacco History: Patient Tobacco Use Status: Current everyday Tobacco Cigarette Packs Per Day: 1 Years Smoked: 50 Occupation Assessmet: service: Yes Current occupational status: retired Oncology Screenings - ECOG Performance Status ECOG Performance Status: 1 Home Medications and Allergies Current Medications: Current Medications Acetaminophen (Acetaminophen 325 Mg Tablet) 650 mg PO ONCE CATA Stop: 05/31/24 23:59 Dexamethasone (Dexamethasone 6 Mg Tablet) 12 mg PO ONCE CATA Stop: 05/31/24 23:59 Diphenhydramine HCl (Diphenhydramine Hcl 50 Mg/Ml Vial) 25 mg IVPUSH ONCE CATA Stop: 05/31/24 23:59 Famotidine (Famotidine/Pf 20 Mg/2 Ml Vial) 20 mg IVPUSH ONCE CATA Stop: 05/31/24 23:59 Heparin Sodium (Porcine) (Heparin Sodium,Porcine Flush 500 Unit/5 Ml Syringe) 500 unit IVFLUSH ONCE CATA Stop: 05/31/24 23:59 Ondansetron HCl (Ondansetron Odt 8 Mg Tab.Rapdis) 8 mg TRANSLINGU ONCE CATA Stop: 05/31/24 23:59 Home Medications ?Medication ?Instructions ?Recorded ?Confirmed ?Type cholecalciferol (vitamin D3) 125 125 mcg PO Q7D 08/13/20 05/07/24 History mcg (5,000 unit) tablet (Vitamin D3) divalproex 500 mg tablet,delayed 1,000 mg PO BEDTIME 08/13/20 05/07/24 History release (Depakote) glatiramer 20 mg/mL subcutaneous 20 mg subcut DAILY 08/13/20 05/07/24 History syringe (Glatopa) lisinopril 20 mg tablet 20 mg PO BEDTIME 08/13/20 05/07/24 History pregabalin 150 mg capsule 150 mg PO TID 08/13/20 05/07/24 History quetiapine 50 mg tablet (Seroquel) 50 mg PO BEDTIME 08/13/20 05/07/24 History simvastatin 20 mg tablet 20 mg PO BEDTIME 08/13/20 05/07/24 History Allergies Allergy/AdvReac Type Severity Reaction Status Date / Time carbamazepine Allergy Intermediate purple rash Verified 05/07/24 09:36 Exam Vital signs: Vital Signs Temp 97.4 F 05/31/24 13:25 Pulse 74 05/31/24 13:25 Resp 18 05/31/24 13:25 BP 138/74 05/31/24 13:25 Pulse Ox 96 05/31/24 13:25 O2 Del Method Room Air 05/31/24 13:25 Intake & Output 05/30/24 05/31/24 05/31/24 18:59 06:59 18:59 Other: Weight 50.1 kg [place] Weight in Grams [address]297 Weight 50.1 kg BMI result Body Mass Index 17.8 - Constitutional Present: no acute distress - Routine HEENT Exam Head: Present: normal inspection, normocephalic Eye: Present: normal appearance ENT: Present: mucous membranes moist - Routine Neck Exam Present: full ROM - Routine Respiratory Exam Present: CTAB - Routine Cardiovascular Exam Cardiovascular: Present: RRR, S1, S2 - Routine Abdominal Exam Present: soft, nontender - Routine Extremities Exam Present: nontender. Absent: tenderness - Routine Back/Spine/Pelvis Exam Back/Spine: Present: full ROM - Routine Skin Exam Present: intact - Routine Neurological Exam Present: alert, oriented X3 - Detailed Neurological Exam: Coma Scale Eye Opening: Spontaneous (4) - Routine Psychiatric Exam Present: normal affect Data - Labs CBC & Chem 7: 05/31/24 13:31 05/31/24 13:31 Assessment and Plan Patient Active problem list reviewed?: Yes (1) Non-small cell lung cancer Status: Acute Assessment and plan: 73 year old gentleman, with recent diagnosis of non small cell lung cancer. As part of follow-up he proceeded with MRI of the brain on 12/28 which revealed: Multiple new T2 hyperintense, enhancing lesions throughout the cerebellum, thalamus and right frontal, right lobe. While this may represent progressive demyelination, pattern of the new lesions is atypical and superimposed metastatic disease is also possible. 01/25/2024, he underwent CT scan of the chest abdomen and pelvis. This revealed: Irregular mass in the anterior right upper lobe of the lungs. Given the background of emphysema and findings suspicious metastatic disease on recent MRI of the brain, this finding is concerning for a primary lung cancer. 2. Mildly enlarged right precarinal node can not exclude a gerri metastasis. 3. Low-attenuation left adrenal nodule a met is not excluded. 4. 4.7 cm infrarenal aortic aneurysm. 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 Differential includes: Large cell neuroendocrine carcinoma and combined large cell neuroendocrine carcinoma/adenocarcinoma. Final results of the molecular testing, revealed: Positive PD-L1 with a CPS score of 2. From 02/16/2024. PET scan from [place] revealed: 3.2 cm irregular mildly spiculated mass in the right upper lobe abutting the anterior pleura shows increased FDG uptake, suspicious for malignancy. Mediastinal lymphadenopathy measuring up to 1.3 cm with mildly increased FDG uptake is mildly suspicious for metastatic disease. Intensely FDG avid left adrenal nodule, suspicious. Infrarenal abdominal aortic aneurysm measuring 4.7 cm. I shared the above information with him. Mentioned my concern that he has metastatic lung carcinoma. There is concern for brain metastases. However he does have a history of MS, which is confounding the picture. His last MRI was from 12/28. I proceeded with an updated MRI of the brain for definitive diagnosis of brain Mets, and to see if there is any progression there. This was done on 02/23 and revealed: There are multiple ring-enhancing intracranial masses most likely representing metastatic disease in a patient with a known history of a lung carcinoma. The dominant lesion is located within the right cerebellar hemisphere measuring 1.8 cm in maximal dimension. The second dominant lesion located within the left periatrial white matter measures 1.0 cm in maximal dimension. A right thalamic lesion measures up to 0.9 cm in maximal dimension. There are at least 7 additional much smaller and faintly enhancing nodular lesions involving both cerebral hemispheres and cerebellum. There are chronic postoperative changes of a right retromastoid craniotomy, potentially related to a biopsy of the dominant right cerebellar mass. Comparison with prior imaging is therefore recommended if available to assess the stability of these lesions. No substantial intracranial mass effect. No midline shift or hydrocephalus. He was considered to be a candidate for radiation therapy. An appointment was set up for 03/08 at 01:[address] Mckinnon. He completed radiation therapy to the brain on 04/12/24. He did well. He has moved on to the next phase of treatment for his lung cancer. He was deemed a candidate for immunotherapy with ipilimumab and nivolumab. He was given information about the above regimen. I sent the antiemetics to his pharmacy. He was started on it on 05/17. He is here for day 15 niv[address]umab today. His last CT chest was few months ago so l elected to update that. CT scan of the chest was done on 05/08 and revealed: Though the dominant right upper lobe mass is stable, there is an enlarging left adrenal mass with a possible small right adrenal metastasis is also suspicious for metastases. I believe a PET/CT would be helpful in this case. PLAN: He has been started on the treatment on 05/17, here for cycle 2. I have requested a PET scan for further staging. Will also proceed with an MRI of the brain, for follow-up after completion of radiation therapy. He has been trying to eat better and build himself up. He will return in a couple of weeks for his next treatment and a follow-up visit. All his questions were answered to his satisfaction. Thank you, CC: Dr. Markie Arroyo. Dr. Rock Mckinnon. - Time Spent With Patient Time Spent with Patient (in minutes): 25
[2024-05-31 14:04] LABS: Alanine Aminotransferase 13 U/L (0-40); Albumin Level 3.4 g/dL (3.5-5.0); Alkaline Phosphatase 48 U/L (39-117); Anion Gap 13 (12-20); Aspartate Amino Transferase 39 U/L (5-37); Bilirubin Direct 0.2 mg/dL (0.0-0.5); Bilirubin Total 0.5 mg/dL (0.0-1.0); Blood Urea Nitrogen 21 mg/dL (9-16); Calcium 8.8 mg/dL (8.4-10.2); Carbon Dioxide 22 mmol/L (22-29); Chloride 110 mmol/L (96-108); Creatinine Clr Calc Pharmacy 61.4; Estimated Glomerular Filt Rate > 60; Glucose Random 94 mg/dL (60-115); Potassium 4.8 mmol/L (3.3-5.1); Sodium 140 mmol/L (135-145); Total Protein 6.4 g/dL (6.5-8.0)
[2024-05-31 14:18] LABS: Thyroid Stimulating Hormone 2.74 uIU/mL (0.32-4.0)
[2024-05-31] MEDS: Famotidine/PF 20 MG/2 ML VIAL IVPUSH (14:20)
[2024-05-31] MEDS: diphenhydrAMINE HCL 50 MG/ML VIAL 25 MG IVPUSH (14:22)
[2024-05-31] MEDS: Ondansetron ODT 8 MG TAB.RAPDIS TRANSLINGU (14:22)
[2024-05-31] MEDS: Acetaminophen 325 MG TABLET 650 MG PO (14:23)
[2024-05-31] MEDS: dexAMETHasone 6 MG TABLET 12 MG PO (14:23)
[2024-05-31] MEDS: NIVOLUMAB IV (14:50)
[2024-05-31] MEDS: SODIUM CHLORIDE 0.9% IV (14:50)
--- NOTE | 2024-05-31 15:46 | MHC.HEMONC ---
Here for C1 D15 Nivolumab. Feels well, with no c/o. States he tolerated last treatment well and had no problems. Labs drawn and results reviewed. IV started right forearm with good blood return noted. Premeds given as ordered. Treatment done and tolerated well. Order placed by Dr Gipson for MRI, and MRI scheduled for 06/07/24. IV removed with no redness or swelling at the site. Departure packet given and pt departed ambulatory with steady gait.
--- NOTE | 2024-06-04 14:40 | HO.HEMONCSCH ---
Addendum entered by Denise Flores 07/02/24 08:53: Patient no showed on 06/26 rescheduled for 07/10/24 at 10:30 am Original Note: Patient booked for PET/CT Skull to Thigh with [facility] on Wednesday June 26, 2024 at 10:30 am
[2024-06-14 13:34] LABS: MANUAL DIFF FLAG NO
[2024-06-14 13:38] LABS: Basophils Percent Auto 0.5 % (0-2); Eosinophils Percent Auto 0.3 % (0-4); Hemoglobin 12.4 g/dl (14.0-18.0); Imm Gran Abs Auto 0.05 X10*3/uL (0.00-0.03); Imm Gran Pct Auto 0.7 % (0.0-0.4); Lymphocytes Absolute Auto 1.9 X10*3/uL (1.2-4.9); Lymphocytes Percent Auto 24.9 % (20-40); Mean Corpuscular HGB Conc 33.5 g/dl (31.0-36.0); Mean Corpuscular Hemoglobin 33.2 pg (27.0-33.0); Mean Corpuscular Volume 99.2 fL (80.0-98.0); Mean Platelet Volume 10.5 fL (9.4-12.4); Monocytes Absolute Auto 0.9 X10*3/uL (0.1-1.2); Monocytes Percent Auto 11.3 % (2-11); Neutrophils Absolute Auto 4.8 x10*3/uL (2.0-8.3); Neutrophils Percent Auto 62.3 % (45-73); Platelet Count 150 X10*3/uL (160-400); Red Blood Count 3.73 X10*6/uL (4.60-5.80); Red Cell Distribution Width 14.1 % (11.0-16.0); White Blood Count 7.6 X10*3/uL (4.8-10.8)
[2024-06-14 14:05] LABS: Alanine Aminotransferase 10 U/L (0-40); Albumin Level 3.2 g/dL (3.5-5.0); Alkaline Phosphatase 49 U/L (39-117); Anion Gap 8 (12-20); Aspartate Amino Transferase 34 U/L (5-37); Bilirubin Direct 0.2 mg/dL (0.0-0.5); Bilirubin Total 0.6 mg/dL (0.0-1.0); Blood Urea Nitrogen 28 mg/dL (9-16); Calcium 8.5 mg/dL (8.4-10.2); Carbon Dioxide 27 mmol/L (22-29); Chloride 114 mmol/L (96-108); Estimated Glomerular Filt Rate > 60; Glucose Random 101 mg/dL (60-115); Potassium 4.8 mmol/L (3.3-5.1); Sodium 144 mmol/L (135-145); Total Protein 6.8 g/dL (6.5-8.0)
--- NOTE | 2024-06-14 14:14 | P.PNHO-ONC_ITS ---
Medical Summary - Medical Summary Date of Service: 06/14/24 Chief complaint: Follow-up for: [id number] lung carcinoma. Primary Care Provider: Markie Arroyo DO Medical Summary: DIAGNOSIS: BRAIN METASTASES. LUNG CANCER. CURRENT THERAPY: Status post completion of radiation therapy to the head 04/12/24. Started on systemic chemotherapy with ipilimumab and nivolumab, on 05/17. Here for Nivolumab, day 29. Interval History Interval history: Zackery Duran is a 73 year old gentleman, here for a follow-up visit. He is feeling fair. Sometimes he feels a bit lightheaded. He is trying to eat but appetite is not that great. He has lost weight. He feels rather fatigued. He denies any headache. No fever chills no night sweats. He has occasional cough, with some sputum production. No chest pain, he gets shortness of breath on exertion. He denies abdominal pain, heartburn, nausea or vomiting. Bowels are regular without any gross blood in it. He has had a colonoscopy done. He denies any dysuria nor hematuria. He denies joint pain. He moves slowly. Sometimes he feels depressed. He has bipolar disorder. He is stable on Depakote. No skin rashes no pruritus. He completed radiation therapy to the brain on 04/12/24. INTERIM HISTORY: He started the immunotherapy on 05/17. He is here to receive day 15 nivolumab. He tolerated the treatment reasonably well. Denies noticing any side effects. He did not have any hypersensitivity reaction or skin rash. No nausea or vomiting. He has the Zofran. PRESENTING HISTORY: He was referred by Dr. Arroyo, on account of lung cancer and brain metastases. Unfortunately the patient has MS. He is under care of Neurology Dr. Sierra. As part of follow-up he proceeded with MRI of the brain on 12/28 which revealed: Multiple new T2 hyperintense, enhancing lesions throughout the cerebellum, thalamus and right frontal, right lobe. While this may represent progressive demyelination, pattern of the new lesions is atypical and superimposed metastatic disease is also possible. 01/25/2024, he underwent CT scan of the chest abdomen and pelvis. This revealed: Irregular mass in the anterior right upper lobe of the lungs. Given the background of emphysema and findings suspicious metastatic disease on recent MRI of the brain, this finding is concerning for a primary lung cancer. 2. Mildly enlarged right precarinal node can not exclude a gerri metastasis. 3. Low-attenuation left adrenal nodule a met is not excluded. 4. 4.7 cm infrarenal aortic aneurysm. 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 Differential includes: Large cell neuroendocrine carcinoma and combined large cell neuroendocrine carcinoma/adenocarcinoma. Molecular testing pending. From 02/16/2024. PET scan from [place] revealed: 3.2 cm irregular mildly spiculated mass in the right upper lobe abutting the anterior pleura shows increased FDG uptake, suspicious for malignancy. Mediastinal lymphadenopathy measuring up to 1.3 cm with mildly increased FDG uptake is mildly suspicious for metastatic disease. Intensely FDG avid left adrenal nodule, suspicious. Infrarenal abdominal aortic aneurysm measuring 4.7 cm. PAST MEDICAL HISTORY: 1. Multiple sclerosis. He is on glutopa injections dail0.y 2. History of trigeminal neuralgia. He had surgery done for it. FAMILY HISTORY: Denies any family history of heme Onc problems. 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 He is not . He has a daughter 46-year-old. He smoked since a young age. Initially 1 pack per day. Recently cut down to 4 cigarettes a day. Denies alcohol. Review of Systems - Constitutional Reports no additional constitutional complaints, Reports anorexia, Reports fatigue, Reports lack of energy, Reports malaise, Reports weight loss - Eyes Reports no additional eye complaints - ENT Reports no additional ear, nose, mouth, and throat complaints - Cardiovascular Reports no additional cardiovascular complaints - Respiratory Reports no additional respiratory complaints - Gastrointestinal Reports no additional gastrointestinal complaints - Genitourinary Genitourinary: Reports no additional male genitourinary complaints - Musculoskeletal Reports no additional musculoskeletal complaints - Integumentary/Breasts Skin/Breast: Reports no additional skin complaints - Neurologic Reports no additional neurologic complaints, Reports dizziness - Psychiatric Reports no additional psychiatric complaints - Endocrine Reports no additional endocrine complaints - Hematologic/Lymphatic Reports no additional hematologic/lymphatic complaints - Allergic/Immunologic Reports no additional allergic/immunologic complaints [facility] Medical History: Medical History (Last Reviewed 03/05/24 @ 11:43 by Carlos Mondragon) Arthritis COVID-19 vaccine administered Elevated cholesterol History of trigeminal neuralgia HTN (hypertension) Hx of bipolar disorder Multiple sclerosis Nicotine dependence, cigarettes, uncomplicated Tubular adenoma of colon Functional capacity: independent ambulation Patient : No Surgical History: Surgical History (Last Reviewed 03/05/24 @ 11:43 by Carlos Mondragon) History of colonoscopy History of surgery Hx of cataract surgery Hx of right knee surgery Social History: Social History (Last Reviewed 05/07/24 @ 09:34 by Dacia Rowan RN) Living Situation History: Household Members: None Housing Other:: lives in custodial community Are you a primary care information associate to a significant other at home: No Do you presently have visiting nurse or other home services: No Alcohol History Details: 1. How often do you have a drink containing alcohol?: a. Never Tobacco History: Patient Tobacco Use Status: Current everyday Tobacco Cigarette Packs Per Day: 1 Years Smoked: 50 Substance Use History: Use of substances other than those prescribed or required for medical reasons : No Domestic Abuse History: Have you been hit, kicked, punched, or otherwise hurt by someone within the past year? If so, by whom?: No Do you feel safe in your current relationship?: Yes Homicidal Assessment: Do you have thoughts of harming others: None Do you have a plan to hurt others: No Plan Nutrition Assessment: Patient : No Occupation Assessmet: service: Yes Current occupational status: retired Oncology Screenings - ECOG Performance Status ECOG Performance Status: 1 Home Medications and Allergies Current Medications: Current Medications Acetaminophen (Acetaminophen 325 Mg Tablet) 650 mg PO ONCE CATA Stop: 06/14/24 23:59 Dexamethasone (Dexamethasone 6 Mg Tablet) 12 mg PO ONCE CATA Stop: 06/14/24 23:59 Diphenhydramine HCl (Diphenhydramine Hcl 50 Mg/Ml Vial) 25 mg IVPUSH ONCE CATA Stop: 06/14/24 23:59 Famotidine (Famotidine/Pf 20 Mg/2 Ml Vial) 20 mg IVPUSH ONCE CATA Stop: 06/14/24 23:59 Heparin Sodium (Porcine) (Heparin Sodium,Porcine Flush 500 Unit/5 Ml Syringe) 500 unit IVFLUSH ONCE CATA Stop: 06/14/24 23:59 Ondansetron HCl (Ondansetron Odt 8 Mg Tab.Rapdis) 8 mg TRANSLINGU ONCE CATA Stop: 06/14/24 23:59 Home Medications ?Medication ?Instructions ?Recorded ?Confirmed ?Type cholecalciferol (vitamin D3) 125 125 mcg PO Q7D 08/13/20 05/07/24 History mcg (5,000 unit) tablet (Vitamin D3) divalproex 500 mg tablet,delayed 1,000 mg PO BEDTIME 08/13/20 05/07/24 History release (Depakote) glatiramer 20 mg/mL subcutaneous 20 mg subcut DAILY 08/13/20 05/07/24 History syringe (Glatopa) lisinopril 20 mg tablet 20 mg PO BEDTIME 08/13/20 05/07/24 History pregabalin 150 mg capsule 150 mg PO TID 08/13/20 05/07/24 History quetiapine 50 mg tablet (Seroquel) 50 mg PO BEDTIME 08/13/20 05/07/24 History simvastatin 20 mg tablet 20 mg PO BEDTIME 08/13/20 05/07/24 History Allergies Allergy/AdvReac Type Severity Reaction Status Date / Time carbamazepine Allergy Intermediate purple rash Verified 05/07/24 09:36 Exam Vital signs: Vital Signs Temp 97.4 F 05/31/24 13:25 Pulse 74 05/31/24 13:25 Resp 18 05/31/24 13:25 BP 138/74 05/31/24 13:25 Pulse Ox 96 05/31/24 13:25 O2 Del Method Room Air 05/31/24 13:25 Weight 50.1 kg BMI result Body Mass Index 17.8 - Constitutional Present: no acute distress - Routine HEENT Exam Head: Present: normal inspection, normocephalic Eye: Present: normal appearance ENT: Present: mucous membranes moist - Routine Neck Exam Present: full ROM - Routine Respiratory Exam Present: CTAB - Routine Cardiovascular Exam Cardiovascular: Present: RRR, S1, S2 - Routine Abdominal Exam Present: soft, nontender - Routine Extremities Exam Present: nontender. Absent: tenderness - Routine Back/Spine/Pelvis Exam Back/Spine: Present: full ROM - Routine Skin Exam Present: intact - Routine Neurological Exam Present: alert, oriented X3 - Detailed Neurological Exam: Coma Scale Eye Opening: Spontaneous (4) - Routine Psychiatric Exam Present: normal affect Data - Labs CBC & Chem 7: 06/14/24 13:32 06/14/24 13:32 Assessment and Plan Patient Active problem list reviewed?: Yes (1) Non-small cell lung cancer Status: Acute Assessment and plan: 73 year old gentleman, with recent diagnosis of non small cell lung cancer. As part of follow-up he proceeded with MRI of the brain on 12/28 which revealed: Multiple new T2 hyperintense, enhancing lesions throughout the cerebellum, thalamus and right frontal, right lobe. While this may represent progressive demyelination, pattern of the new lesions is atypical and superimposed metastatic disease is also possible. 01/25/2024, he underwent CT scan of the chest abdomen and pelvis. This revealed: Irregular mass in the anterior right upper lobe of the lungs. Given the background of emphysema and findings suspicious metastatic disease on recent MRI of the brain, this finding is concerning for a primary lung cancer. 2. Mildly enlarged right precarinal node can not exclude a gerri metastasis. 3. Low-attenuation left adrenal nodule a met is not excluded. 4. 4.7 cm infrarenal aortic aneurysm. 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 Differential includes: Large cell neuroendocrine carcinoma and combined large cell neuroendocrine carcinoma/adenocarcinoma. Final results of the molecular testing, revealed: Positive PD-L1 with a CPS score of 2. From 02/16/2024. PET scan from [place] revealed: 3.2 cm irregular mildly spiculated mass in the right upper lobe abutting the anterior pleura shows increased FDG uptake, suspicious for malignancy. Mediastinal lymphadenopathy measuring up to 1.3 cm with mildly increased FDG uptake is mildly suspicious for metastatic disease. Intensely FDG avid left adrenal nodule, suspicious. Infrarenal abdominal aortic aneurysm measuring 4.7 cm. I shared the above information with him. Mentioned my concern that he has metastatic lung carcinoma. There is concern for brain metastases. However he does have a history of MS, which is confounding the picture. His last MRI was from 12/28. I proceeded with an updated MRI of the brain for definitive diagnosis of brain Mets, and to see if there is any progression there. This was done on 02/23 and revealed: There are multiple ring-enhancing intracranial masses most likely representing metastatic disease in a patient with a known history of a lung carcinoma. The dominant lesion is located within the right cerebellar hemisphere measuring 1.8 cm in maximal dimension. The second dominant lesion located within the left periatrial white matter measures 1.0 cm in maximal dimension. A right thalamic lesion measures up to 0.9 cm in maximal dimension. There are at least 7 additional much smaller and faintly enhancing nodular lesions involving both cerebral hemispheres and cerebellum. There are chronic postoperative changes of a right retromastoid craniotomy, potentially related to a biopsy of the dominant right cerebellar mass. Comparison with prior imaging is therefore recommended if available to assess the stability of these lesions. No substantial intracranial mass effect. No midline shift or hydrocephalus. He was considered to be a candidate for radiation therapy. An appointment was set up for 03/08 at 01:[address] Mckinnon. He completed radiation therapy to the brain on 04/12/24. He did well. He has moved on to the next phase of treatment for his lung cancer. He was deemed a candidate for immunotherapy with ipilimumab and nivolumab. He was given information about the above regimen. I sent the antiemetics to his pharmacy. He was started on it on 05/17. He is here for day 15 [address]. His last CT chest was few months ago so l elected to update that. CT scan of the chest was done on 05/08 and revealed: Though the dominant right upper lobe mass is stable, there is an enlarging left adrenal mass with a possible small right adrenal metastasis is also suspicious for metastases. I believe a PET/CT would be helpful in this case. MRI of the brain from 06/07/2024 revealed: Overall worsening metastatic disease with the larger lesions and perilesional vasogenic edema. I shared the above results with Dr. Mckinnon. He will review the images and get back to us. PLAN: Meanwhile I will start him on Decadron for the vasogenic edema. He has been started on the immunotherapy treatment on 05/17, here for day 29. Hopefully that will help with his brain metastases as well. His PET scan is scheduled for 06/26. He will return in a couple of weeks for his next treatment and a follow-up visit. All his questions were answered to his satisfaction. Thank you, CC: Dr. Markie Arroyo. Dr. Rock Mckinnon. - Time Spent With Patient Time Spent with Patient (in minutes): 25
[2024-06-14 14:19] LABS: Thyroid Stimulating Hormone 1.92 uIU/mL (0.32-4.0)
[2024-06-14] MEDS: Acetaminophen 325 MG TABLET 650 MG PO (14:52)
[2024-06-14] MEDS: Ondansetron ODT 8 MG TAB.RAPDIS TRANSLINGU (14:52)
[2024-06-14] MEDS: dexAMETHasone 6 MG TABLET 12 MG PO (14:52)
[2024-06-14] MEDS: Famotidine/PF 20 MG/2 ML VIAL IVPUSH (14:53)
[2024-06-14] MEDS: diphenhydrAMINE HCL 50 MG/ML VIAL 25 MG IVPUSH (14:53)
[2024-06-14] MEDS: SODIUM CHLORIDE 0.9% IV (15:28)
[2024-06-14] MEDS: NIVOLUMAB IV (15:28)
[2024-06-14 16:48] VITALS: BP 121/56; PULSE 58; RESP 20; TEMP 36.3; O2SAT 99; BMI 16.9
--- NOTE | 2024-06-14 16:50 | MHC.HEMONC ---
Addendum entered by Yumiko Montiel RN 06/14/24 16:59: Dr Gipson spoke with Dr Mckinnon regarding pts recent scan. Per Dr Gipson, pt may need further RT, but Dr Mckinnon will review images and then will call pt. This engineering writer called to notify pt, and message was left. Original Note: C1 D29 Nivolumab. Feels well, but does report some SOB on exertion that started approx 1 week ago. He also reports that his cough has worsened. No other c/o, and reports that he is tolerating treatments well. Labs done and reviewed. OK for treatment. IV placed right forearm with good blood return noted. Premeds given as ordered. Treatment done and tolerated well. Dr Gipson in to see pt for follow up. IV removed. No redness or swelling at the site. Departure packet given and pt brought to front via wheelchair.
--- NOTE | 2024-06-19 15:47 | MHC.HEMONC ---
Triage call-received call from pt who states he is having more difficulty walking. Dr Gipson notified-pt has appointment with Dr Mckinnon on 06/26/24-per Dr Gipson radiation treatment with dr Mckinnon should help-pt notified
--- NOTE | 2024-06-20 17:13 | MHC.HEMONC ---
Pt called triage line, reported that he began taking the Dexamethasone 4 mg PO BID since 06/14, as directed by Dr. Gipson, but he says the dizziness he was experiencing has not improved at all, though he says it hasn't worsened either. Nurse spoke w/ Dr. Gipson, confirmed that pt is aware of upcoming appt at [facility] w/ Dr. Mckinnon on 06/26, and reminded him that her hope is that RadTx could improve his vasogenic edema and associated symptoms like his dizziness, but in the meantime, provider recommends pt increase dosing to Dexamethasone 4 mg TID, since twice daily is not helping w/ the dizziness. Nurse also encouraged pt to maintain large fluid intake while taking the Dex. Pt was agreeable to this plan, nurse asked him to call back w/ update if dizziness does not improve or any other new symptoms arise.
[2024-06-28 13:20] VITALS: BP 125/58; PULSE 77; RESP 18; TEMP 36.3; O2SAT 100; BMI 16.8
[2024-06-28 13:40] LABS: MANUAL DIFF FLAG NO
[2024-06-28 13:49] LABS: Basophils Absolute Auto 0.1 X10*3/uL (0.0-0.2); Basophils Percent Auto 0.7 % (0-2); Hematocrit 39.4 % (42.0-52.0); Hemoglobin 13.3 g/dl (14.0-18.0); Imm Gran Abs Auto 0.17 X10*3/uL (0.00-0.03); Lymphocytes Absolute Auto 1.6 X10*3/uL (1.2-4.9); Lymphocytes Percent Auto 9.8 % (20-40); Mean Corpuscular HGB Conc 33.8 g/dl (31.0-36.0); Mean Corpuscular Hemoglobin 34.3 pg (27.0-33.0); Mean Corpuscular Volume 101.5 fL (80.0-98.0); Mean Platelet Volume 10.2 fL (9.4-12.4); Monocytes Absolute Auto 0.7 X10*3/uL (0.1-1.2); Monocytes Percent Auto 4.2 % (2-11); Neutrophils Absolute Auto 13.7 x10*3/uL (2.0-8.3); Neutrophils Percent Auto 84.3 % (45-73); Platelet Count 123 X10*3/uL (160-400); Red Blood Count 3.88 X10*6/uL (4.60-5.80); Red Cell Distribution Width 15.1 % (11.0-16.0); White Blood Count 16.3 X10*3/uL (4.8-10.8)
[2024-06-28 14:08] LABS: Alanine Aminotransferase 19 U/L (0-40); Albumin Level 3.2 g/dL (3.5-5.0); Alkaline Phosphatase 41 U/L (39-117); Anion Gap 15 (12-20); Aspartate Amino Transferase 40 U/L (5-37); Bilirubin Direct 0.3 mg/dL (0.0-0.5); Bilirubin Total 0.7 mg/dL (0.0-1.0); Blood Urea Nitrogen 29 mg/dL (9-16); Calcium 8.4 mg/dL (8.4-10.2); Carbon Dioxide 23 mmol/L (22-29); Chloride 107 mmol/L (96-108); Creatinine Clr Calc Pharmacy 63.8; Estimated Glomerular Filt Rate > 60; Glucose Random 135 mg/dL (60-115); Sodium 140 mmol/L (135-145); Total Protein 5.9 g/dL (6.5-8.0)
[2024-06-28 14:24] LABS: Thyroid Stimulating Hormone 1.04 uIU/mL (0.32-4.0)
[2024-06-28] MEDS: dexAMETHasone 6 MG TABLET 12 MG PO (14:30)
[2024-06-28] MEDS: Ondansetron ODT 8 MG TAB.RAPDIS TRANSLINGU (14:31)
[2024-06-28] MEDS: Acetaminophen 325 MG TABLET 650 MG PO (14:31)
[2024-06-28] MEDS: Famotidine/PF 20 MG/2 ML VIAL IVPUSH (14:32)
[2024-06-28] MEDS: diphenhydrAMINE HCL 50 MG/ML VIAL 25 MG IVPUSH (14:32)
[2024-06-28] MEDS: NIVOLUMAB IV (14:56)
[2024-06-28] MEDS: SODIUM CHLORIDE 0.9% IV ×2 (14:56→15:47)
[2024-06-28] MEDS: IPILIMUMAB IV (15:47)
--- NOTE | 2024-06-28 16:48 | MHC.HEMONC ---
Here for C2 D1 Ipi/Nivo. Feels well, with only c/o leg weakness. He states he isn't sure if he feels more weakness from his MS or if it is from the chemo. Reports that it started after he started chemo. Dr Gipson is aware, and placed referral for PT. Labs drawn. IV started right forearm with good blood return noted. Premeds given as ordered. Treatment done and tolerated well. PET scan rescheduled for 07/10 and pt and his s.o. are aware. IV removed with no redness or swelling at the site. Departure packet given and pt brought to front via wheelchair.
--- NOTE | 2024-07-05 15:50 | MHC.HEMONCMA ---
Called patient today and informed him of his scheduled PET scan/CT Skull for 07/10/24 @ 10:30. Patient aware of appt.
--- NOTE | 2024-07-10 10:34 | MHC.HEMONC ---
Triage call from pts friend Noemy. She reports that she went to pick him up for his PET scan, and she found him SOB, weak, confused. She states he could not stand, his color is burks, lips discolored. She called for ambulance, and he is on his way to ED. Dr Gipson notified.
== END 2024-07-25 | disposition home or self-care (01) ==
LOC: HO.ONC 13:00
PROVIDERS: PCP Internal Medicine; Referring Provider Surgery; Visit Provider Internal Medicine Medical Oncology
DX: Z51.11 Encounter for antineoplastic chemotherapy (principal); C34.90 Malignant neoplasm of unspecified part of unspecified bronchus or lung; C79.31 Secondary malignant neoplasm of brain; I10 Essential (primary) hypertension; G35 Multiple sclerosis; Z79.899 Other long term (current) drug therapy
CPT/HCPCS: 36415; 80053; 82150; 82248; 82378; 83615; 83690; 84443; 85025; 86704; 86706; 86803; 87340; 96375; 96413; 96417; 99212; J1200; J8540; J9228; J9299

== ENCOUNTER 2024-07-10 10:39 | Emergency (ER) | payer MEDICARE, SELFPAY ==
[2024-07-10] VITALS (19 sets, daily range): BP systolic 77–136; BP diastolic 40–92; PULSE 105–140; RESP 16–28; TEMP 36.6–36.8; O2SAT 88–100; BMI 20.5
--- NOTE | ~2024-07-10 | XR_ITS ---
EXAMINATION: XR CHEST CLINICAL INFORMATION: sob COMPARISON: 02/13/2024. TECHNIQUE: Frontal view of the chest was obtained. FINDINGS: The cardiac, hilar, and mediastinal contours are normal. The aorta is also identified and mildly tortuous. Low lung volumes present, with mild basilar bronchovascular crowding. There is a suprahilar opacity consistent with the known pulmonary malignancy. Subtle increased interstitial opacities in the lateral right upper lobe distribution, suspicious for a subtle pneumonia. No effusion or pneumothorax. Degenerative changes present in the spine and both shoulder joints. No soft tissue abnormality. XR/XR chest 1V IMPRESSION: 1. Low lung volumes with possible subtle pneumonia right upper lobe laterally. No effusions. 2. Nodular opacity right suprahilar region, in keeping with known pulmonary malignancy. Electronically signed by: Krish Barakat MD 07/10/2024 01:13 PM TITI
--- NOTE | 2024-07-10 10:57 | ECG_ITS ---
Test Reason : SEPSIS Blood Pressure : */* mmHG Vent. Rate : 131 BPM Atrial Rate : 131 BPM P-R Int : 88 ms QRS Dur : 68 ms QT Int : 266 ms P-R-T Axes : 28 20 49 degrees QTcB Int : 392 ms Poor data quality Sinus tachycardia with short AR Otherwise normal ECG When compared with ECG of 04-Dec-2013 15:56, Poor data quality in current ECG precludes serial comparison Vent. rate has increased by 71 bpm Referred By: Laura Castelan Electronically Signed By: ASHKAN CAMARA MD
--- NOTE | 2024-07-10 11:06 | ED.WEAKNESS ---
HPI - Weakness General Chief complaint: Weakness Stated complaint: LETHARGIC, LUNG AND BRAIN CA Time Seen by Provider: 07/10/24 10:42 Source: patient and EMS Mode of arrival: EMS Limitations: no limitations History of Present Illness ED Provider: LAURA CASTELAN PA-C HPI Narrative: 73-year-old male, current tobacco smoker (4 cigarettes/ day) with pmhx significant for trigeminal neuralgia, bipolar disorder, MS (follows w/ neurologist Dr. 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 Patient states that his neighbor arrived at his home today to drive him to his appointment for repeat PET scan. Patient was noted to be lethargic and weak, EMS was called. On EMS arrival, patient's O2 saturation was noted to be 80% on room air. Patient states that he is not dependent on oxygen at home. At present he states he is tired and out of breath. Reports pain to both lower extremities and abdomen. He currently follows with oncologist, Dr. Gipson. He completed radiation therapy to the brain on 04/12/2024. He was started on immunotherapy on 05/17, with last dose of nivolumab on 06/14/24. Brain MRI on 06/07/24 reveals overall worsening metastatic disease with larger lesions and perilesional vasogenic edema. He was stared on decadron daily. His next PET scan was scheduled for today. His daughter is at bedside to assist with history. Patient currently lives home alone. He uses a cane to ambulate. Daughter reports he has shuffling gait. Related Data Home Medications ?Medication ?Instructions ?Recorded ?Confirmed cholecalciferol (vitamin D3) 125 125 mcg PO Q7D 08/13/20 05/07/24 mcg (5,000 unit) tablet (Vitamin D3) glatiramer 20 mg/mL subcutaneous 20 mg subcut DAILY 08/13/20 05/07/24 syringe (Glatopa) pregabalin 150 mg capsule 150 mg PO TID 08/13/20 05/07/24 dexamethasone 4 mg tablet 4 mg PO TID 06/20/24 06/20/24 Previous Rx's ?Medication ?Instructions ?Recorded ondansetron 8 mg disintegrating 8 mg PO Q8H #60 tabs 05/10/24 tablet divalproex 500 mg tablet,delayed 1,000 mg (2 x 500 mg) PO BEDTIME 07/02/24 release (Depakote) #180 tabs lisinopril 20 mg tablet 20 mg PO BEDTIME #90 tabs 07/02/24 quetiapine 50 mg tablet (Seroquel) 50 mg PO BEDTIME #90 tabs 07/02/24 simvastatin 20 mg tablet 20 mg PO BEDTIME #90 tabs 07/02/24 Allergies Allergy/AdvReac Type Severity Reaction Status Date / Time carbamazepine Allergy Intermediate purple rash Verified 07/10/24 10:45 Review of Systems Review of Systems: Yes all other systems are reviewed and are negative [facility] Past Medical History Attestation statement: The following information was validated with the patient. Source: old records reviewed and nursing notes reviewed Medical History Multiple sclerosis Hx of bipolar disorder History of trigeminal neuralgia HTN (hypertension) Elevated cholesterol Arthritis Nicotine dependence, cigarettes, uncomplicated Tubular adenoma of colon COVID-19 vaccine administered Surgical History History of colonoscopy History of surgery Hx of cataract surgery Hx of right knee surgery Social History Social History Household Members: None Housing Other:: lives in [facility] Are you a primary attending ambulatory care to a significant other at home: No Do you presently have visiting nurse or other home services: No Patient Tobacco Use Status: Current everyday Tobacco user Cigarette Packs Per Day: 1 Years Smoked: 50 Advance Directives: Yes Advance Directives on File: Yes Advance Directives Date on File: 02/21/24 Do you have a plan to hurt others: No Plan service: Yes Current occupational status: retired Physical Exam Vital Signs: Vital Signs: Last Vital Signs Temp 97.8 F 07/10/24 11:00 Pulse 108 H 07/10/24 15:19 Resp 16 07/10/24 14:23 BP 86/50 L 07/10/24 15:19 Pulse Ox 99 07/10/24 14:23 O2 Del Method Nasal Cannula 07/10/24 14:23 O2 Flow Rate 4 07/10/24 14:23 BMI result Body Mass Index 20.5 hypotensive, tachycardic, tachypneic General: very thin appearing male. pale. moaning. Skin: cool, dry, intact. No rashes or lesions. Head: Normocephalic, atraumatic. EENT: Hearing is intact b/l. Conjunctiva clear. PERRLA. EOM intact. dry mucous membranes. Neck: Supple without LAD Cardiac: Chest wall symmetric. tachycardic, regular rhythm Lungs: +mild respiratory distress with increased effort of breathing. lungs are cta without adventitious breath sounds. Abdomen: Soft, non-tender, non-distended. No rebound tenderness or guarding. Positive BS x4. Ext: Upper and lower extremities atraumatic, without tenderness, deformity, swelling or erythema. no pitting edema. Neuro: AOx3. Normal speech. Ambulation not assessed due to weakness. Course Course Course Narrative: 1057 -- patient arrived to our facility via EMS from home. EMS noted patient to be satting in the 80's on RA. He is not dependent on oxygen at home. On arrival, there is difficulty obtaining vitals from him. We finally obtained a blood pressure of 82/50, pulse of 140 and respirations of 22. He is afebrile via rectal probe. We have been unable to obtain an O2 sat on him with multiple attempts. He was placed on 4 L nasal cannula. Respiratory therapy contacted for ABG. sepsis protocol initiated. Lactic/blood cultures ordered. Cefepime ordered. > patient is alert and oriented. Capable of making own decisions. I had a conversation with him at bedside regarding cardiopulmonary resuscitation if anything were to happen under our care. Patient verbalizes that he is DNR/DNI. Witnessed by WILFRID Bernabe. 1113 -- O2 saturation 99% on 4 L nasal cannula. RT at bedside attempting to obtain ABG. 1150 -- Patient now endorsing abdominal pain. IV Tylenol ordered for pain control as I do not want to drop blood pressure further. plant to obtain imaging of a/p. 1241 -- CBC within leukopenia, thrombocytopenia. H&H stable. Band neutrophils 42%. CARMELA with BUN 51, creatinine 0.59. hyperkalemia to 5.5, hypermagnesium 2.9. random glucose 170. VBG shows metabolic acidosis, anion gap 24. BNP 32. Trop 32. negative for covid, flu, rsv. Lactic acid 15 -- sepsis fluid bolus ordered. Patient is acidotic which is likely contributing to hyperkalemia. Discussed with my attending dr. falk. will trial albuterol and calcium gluconate. RT aware. > there are no open ICU beds at our facility. His blood pressure is trending up, last BP 107/77. will repeat labs/ lactic acid after fluid administration to reassess acidosis/ electrolyte derangements. anticipate admission. will continue monitoring BP to assess needs for pressors. 1455 -- patient received a total of approx 3.5 liters of IVF. repeat lactic improved to 8.4. anion gap closed. Patient was still hyperkalemic to 5.5 despite treatment with albuterol and calcium gluconate. Will trial D50 with insulin. Magnesium normalized. Repeat troponin pending. CARMELA improved w/ BUN 45 and creatinine 1.17. > given hypotension requiring pressors, patient requires further ICU level of care. The IUC at our facility is at capacity. Will reach out to [facility]. Patient and daughter are agreeable transfer. 1515 -- spoke with Mabel from [facility] transfer line. ICU has accepted admission with accepting physician Dr. Combs. Both patient and daughter are agreeable. Transfer initiated. Medications Administered Generic Name Dose Route Start Last Admin Trade Name Freq PRN Reason Stop Dose Admin Norepinephrine Bitartrate 8 mg in 250 mls @ 0 mls/hr 07/10/24 15:00 07/10/24 15:19 Levophed IVCONT 0.05 mcg/kg/min .Q0M CATA 5.24 mls/hr Administration Protocol Per Protocol Discontinued Medications Generic Name Dose Route Start Last Admin Trade Name Freq PRN Reason Stop Dose Admin Albuterol Sulfate 7.5 mg/ 10 mg 07/10/24 12:49 07/10/24 13:08 Albuterol Sulfate 2.5 mg INHALE 07/10/24 12:50 10 mg ONCE ONE Administration Dextrose 25 gm 07/10/24 14:49 07/10/24 15:19 Dextrose 50 % 25 Gm/50 Ml Syringe IVPUSH 07/10/24 14:50 25 gm ONCE ONE Administration Sodium Chloride 1,000 mls @ 999 mls/hr 07/10/24 11:15 07/10/24 12:14 Ns IV 07/10/24 12:15 Infused .Q1H1M CATA Infusion Sodium Chloride 1,000 mls @ 999 mls/hr 07/10/24 11:15 07/10/24 12:14 Ns IV 07/10/24 12:15 Infused .Q1H1M CATA Infusion Cefepime HCl 2 gm in 50 mls @ 100 mls/hr 07/10/24 11:09 07/10/24 11:53 Maxipime IV 07/10/24 11:38 Infused ONCE ONE Infusion Acetaminophen 1,000 mg in 100 mls @ 400 mls/hr 07/10/24 11:48 07/10/24 12:19 Ofirmev IV 07/10/24 12:02 Infused ONCE ONE Infusion Vancomycin HCl 1,500 mg/ 500 mls @ 333.333 mls/hr 07/10/24 12:37 07/10/24 14:24 Sodium Chloride IV 07/10/24 14:06 Infused ONCE ONE Infusion Sodium Chloride 1,677 mls @ 1,677 mls/hr 07/10/24 12:38 07/10/24 13:53 Ns 30 ml/kg infuse over 1 hr (1677 ml) 07/10/24 13:37 Infused IV Infusion .Q1H STA Calcium Gluconate 1 gm in 50 mls @ 50 mls/hr 07/10/24 12:52 07/10/24 14:30 Calcium Gluconate IV 07/10/24 13:51 Infused ONCE ONE Infusion Insulin Human Regular 5 unit 07/10/24 14:49 07/10/24 15:19 Insulin Regular, Human 100 Unit/Ml 10 Ml Vial IVPUSH 07/10/24 14:50 5 unit ONCE ONE Administration Medical Decision Making Medical Decision Making MDM Narrative: 73-year-old male, current tobacco smoker (4 cigarettes/ day) with pmhx significant for trigeminal neuralgia, bipolar disorder, MS (follows w/ neurologist Dr. gardner), non-small cell lung carcinoma with brain metastasis presents to the ED today via EMS from home for evaluation of lethargy and weakness since yesterday. Hypotensive to 82/50 on arrival. Tachycardic between 120s to 140s. Tachypneic to 22. Afebrile. Satting 97% on 4 L nasal cannula. he is ill appearing. thin, pale. moaning in room. aox3. Mild respiratory distress noted with increased effort of breathing. Lungs are CTA without adventitious breath sounds. There is no pitting edema. Differential diagnosis includes anemia, electrolyte abnormality, dehydration, ACS, arrhythmia, pneumonia, UTI, worsening metastatic cancer Sepsis protocol. Plan for labs, UA, CXR, ekg, pain contro, serial reassessment. Differential Diagnosis Differential Diagnoses: The differential diagnosis associated with the presentation includes as above. Admission/Observation Consideration of admission/observation: Escalation of care including admission/observation considered Patient was hypotensive requiring pressors. ICU level of care needed. Our facilities ICU at capacity. Patient will be transferred to [facility] ICU for further care. Consult Healthcare Provider Management of the patient was discussed with: Hospitalist Lab Data MDM Lab Attestation statement: I reviewed the patient's lab results. as above. 07/10/24 11:20 07/10/24 14:01 Labs: Lab Results 07/10/24 07/10/24 07/10/24 Range/Units 11:20 11:38 14:01 WBC 2.9 L (4.8-10.8) X10*3/uL RBC 3.90 L (4.60-5.80) X10*6/uL Hgb 13.6 L (14.0-18.0) g/dl Hct 42.0 (42.0-52.0) % MCV 107.7 H (80.0-98.0) fL MCH 34.9 H (27.0-33.0) pg MCHC 32.4 (31.0-36.0) g/dl RDW 16.4 H (11.0-16.0) % Plt Count 79 L D (160-400) X10*3/uL MPV 10.9 (9.4-12.4) fL Immature Gran % (Auto) Cancelled Neut % (Auto) Cancelled Lymph % (Auto) Cancelled [place] % (Auto) Cancelled Eos % (Auto) Cancelled Baso % (Auto) Cancelled Lymph # (Auto) Cancelled [place] # (Auto) Cancelled Eos # (Auto) Cancelled Baso # (Auto) Cancelled Abs Immat Gran (auto) Cancelled Absolute Neuts (auto) Cancelled Absolute Nucleated RBC 0.000 (0.0-0.012) X10*3/uL Nucleated RBC % (auto) 0.0 (0.0-0.2) /100WBC Neutrophils % (Manual) 31 L (45-73) % Band Neutrophils % 42 H (3-5) % Lymphocytes % (Manual) 18 L (20-40) % Monocytes % (Manual) 8 (2-11) % Metamyelocytes % 1 % Abs Neuts (Manual) 2.1 (2.0-8.3) X10*3/uL Lymphocytes # (Manual) 0.5 L (1.2-4.9) X10*3/uL Monocytes # (Manual) 0.2 (0.1-1.2) X10*3/uL Platelet Estimate DECREASED (NORMAL) Plt Morphology Comment NORMAL RBC Morphology NOTED Ovalocytes 2+ (15-30) /OIF [place] Cells 2+ (3-5) /OIF Acanthocytes (Spur) 1+ (0-2) /OIF VBG pH 7.26 L (7.32-7.43) VBG pCO2 34 mmHg VBG pO2 39 mmHg VBG HCO3 15 L (22-26) mmol/L VBG O2 Saturation 57.0 % VBG Base Excess -10.1 mmol/L Sodium 141 143 (135-145) mmol/L Potassium 5.5 H 5.5 H (3.3-5.1) mmol/L Chloride 108 117 H (96-108) mmol/L Carbon Dioxide 15 L 15 L (22-29) mmol/L Anion Gap 24 H 17 (12-20) BUN 51 H 45 H (9-16) mg/dL Creatinine 1.59 H 1.17 (0.5-1.4) mg/dL Estim Creat Clear Calc 33.2 45.1 Estimated GFR 43 > 60 POC Glucose (60-115) mg/dL Random Glucose 170 H 87 (60-115) mg/dL Lactic Acid 15.0 H* (0.5-2.0) mmol/L Lactic Acid F/U @ 2Hr 8.4 H* (0.5-2.0) mmol/L Calcium 9.4 D 7.5 L D (8.4-10.2) mg/dL Magnesium 2.9 H 2.0 (1.6-2.6) mg/dL Total Bilirubin 0.7 0.5 (0.0-1.0) mg/dL AST 35 27 (5-37) U/L ALT 21 8 (0-40) U/L Alkaline Phosphatase 41 (39-117) U/L Ammonia 27 (13-55) umol/L Total Creatine Kinase 80 (38-174) U/L Troponin I High Sens 32.1 (<3.5-35.0) ng/L B-Natriuretic Peptide 32 (<100) pg/mL Total Protein 6.1 L 3.9 L (6.5-8.0) g/dL Albumin 3.0 L 1.8 L (3.5-5.0) g/dL Lipase 41 (8-78) U/L Influenza Type A (PCR) NEGATIVE (Negative) Influenza Type B (PCR) NEGATIVE (Negative) RSV RNA Qual (PCR) NEGATIVE (Negative) SARS-CoV-2 RNA (RT-PCR) NEGATIVE (Negative) 07/10/24 Range/Units 15:02 WBC (4.8-10.8) X10*3/uL RBC (4.60-5.80) X10*6/uL Hgb (14.0-18.0) g/dl Hct (42.0-52.0) % MCV (80.0-98.0) fL MCH (27.0-33.0) pg MCHC (31.0-36.0) g/dl RDW (11.0-16.0) % Plt Count (160-400) X10*3/uL MPV (9.4-12.4) fL Immature Gran % (Auto) Neut % (Auto) Lymph % (Auto) [place] % (Auto) Eos % (Auto) Baso % (Auto) Lymph # (Auto) [place] # (Auto) Eos # (Auto) Baso # (Auto) Abs Immat Gran (auto) Absolute Neuts (auto) Absolute Nucleated RBC (0.0-0.012) X10*3/uL Nucleated RBC % (auto) (0.0-0.2) /100WBC Neutrophils % (Manual) (45-73) % Band Neutrophils % (3-5) % Lymphocytes % (Manual) (20-40) % Monocytes % (Manual) (2-11) % Metamyelocytes % % Abs Neuts (Manual) (2.0-8.3) X10*3/uL Lymphocytes # (Manual) (1.2-4.9) X10*3/uL Monocytes # (Manual) (0.1-1.2) X10*3/uL Platelet Estimate (NORMAL) Plt Morphology Comment RBC Morphology Ovalocytes /OIF [place] Cells /OIF Acanthocytes (Spur) /OIF VBG pH (7.32-7.43) VBG pCO2 mmHg VBG pO2 mmHg VBG HCO3 (22-26) mmol/L VBG O2 Saturation % VBG Base Excess mmol/L Sodium (135-145) mmol/L Potassium (3.3-5.1) mmol/L Chloride (96-108) mmol/L Carbon Dioxide (22-29) mmol/L Anion Gap (12-20) BUN (9-16) mg/dL Creatinine (0.5-1.4) mg/dL Estim Creat Clear Calc Estimated GFR POC Glucose 77 (60-115) mg/dL Random Glucose (60-115) mg/dL Lactic Acid (0.5-2.0) mmol/L Lactic Acid F/U @ 2Hr (0.5-2.0) mmol/L Calcium (8.4-10.2) mg/dL Magnesium (1.6-2.6) mg/dL Total Bilirubin (0.0-1.0) mg/dL AST (5-37) U/L ALT (0-40) U/L Alkaline Phosphatase (39-117) U/L Ammonia (13-55) umol/L Total Creatine Kinase (38-174) U/L Troponin I High Sens (<3.5-35.0) ng/L B-Natriuretic Peptide (<100) pg/mL Total Protein (6.5-8.0) g/dL Albumin (3.5-5.0) g/dL Lipase (8-78) U/L Influenza Type A (PCR) (Negative) Influenza Type B (PCR) (Negative) RSV RNA Qual (PCR) (Negative) SARS-CoV-2 RNA (RT-PCR) (Negative) Independent Interpretation I performed an independent interpretation of an: EKG and Plain X-Ray Interpretation: CXR showing slight opacity to right upper lobe EKG showing sinus tachycardia with short OH measuring 88 milliseconds, rate of 131 beats per minute, no acute ischemic changes or ST elevation Radiology Impression Discussion of test interpretation with radiology: I have reviewed the radiologist's reading. Radiologist Impression: Procedure(s): XR chest 1V Accession Number(s): [id number] cc: Physician,Unknown ; Larua Castelan~ EXAMINATION: XR CHEST CLINICAL INFORMATION: sob COMPARISON: 02/13/2024. TECHNIQUE: Frontal view of the chest was obtained. FINDINGS: The cardiac, hilar, and mediastinal contours are normal. The aorta is also identified and mildly tortuous. Low lung volumes present, with mild basilar bronchovascular crowding. There is a suprahilar opacity consistent with the known pulmonary malignancy. Subtle increased interstitial opacities in the lateral right upper lobe distribution, suspicious for a subtle pneumonia. No effusion or pneumothorax. Degenerative changes present in the spine and both shoulder joints. No soft tissue abnormality. XR/XR chest 1V IMPRESSION: 1. Low lung volumes with possible subtle pneumonia right upper lobe laterally. No effusions. 2. Nodular opacity right suprahilar region, in keeping with known pulmonary malignancy. Electronically signed by: Krish Barakat MD 07/10/2024 01:13 PM [facility] Independent Historian Clinical information obtained from an independent historian. History obtained from or confirmed by: Other (daughter) External Record Review External record reviewed: Inpatient record Prescription Management I considered prescription management with: Pain Medication Chronic Conditions Patient?s care impacted by: Cancer (Metastatic lung cancer) Social Determinants Patient?s care significantly limited by Social Determinants of Health including: Other Social Determinant of Health Critical Care Time Critical Care Time Critical Care Time: Yes Total Critical Care Time: 60 Attestation: Critical care time in the amount of 60 minutes has been provided to the patient in terms of direct patient care, frequent reevaluation, consultation with [facility] ICU, review and interpretation of medical data and results, and management of potentially life-threatening conditions. This is all outside of any medical procedures. Discharge Plan Discharge Clinical Impression: Acute lactic acidosis, CAP (community acquired pneumonia), Sepsis, Acute hyperkalemia, CARMELA (acute kidney injury) Patient Disposition: Xfer [facility] Hospital Transfer Details: [facility] ICU, accepting physician Dr. Combs Prescriptions: No Action divalproex [Depakote] 500 mg tablet,delayed release (DR/EC) 1,000 mg PO BEDTIME Qty: 180 1RF lisinopril 20 mg tablet 20 mg PO BEDTIME Qty: 90 1RF quetiapine [Seroquel] 50 mg tablet 50 mg PO BEDTIME Qty: 90 1RF simvastatin 20 mg tablet 20 mg PO BEDTIME Qty: 90 1RF pregabalin 150 mg Capsule 150 mg PO TID cholecalciferol (vitamin D3) [Vitamin D3] 125 mcg (5,000 unit) Tablet 125 mcg PO Q7D glatiramer [Glatopa] 20 mg/mL Syringe 20 mg SUBCUT DAILY ondansetron 8 mg Tablet,Disintegrating 8 mg PO Q8H Qty: 60 3RF dexamethasone 4 mg Tablet 4 mg PO TID Print Language: Macanese
[2024-07-10] MEDS: 0.9 % Sodium Chloride 1,000 ML 999 ML IV ×2 (11:13)
--- NOTE | 2024-07-10 11:20 | PC.NURSE ---
sepsis work up initiated. pt had a 20gIV in the left forearm placed in the field - patent/intact. additional 18gIV placed in the right AC and another 20gIV in the left forearm - labs obtained/sent to lab. pt hypotensive, tachycardic, and tachypneic. sinus tachycardic on the monitor. pt remains on 2L via NC - sitting upright to promote patent airway. no sob/wob noted. respirations even/unlabored. plan of care ongoing. call dixon placed within reach.
[2024-07-10] MEDS: cefEPime HCl/D5W 2 GM/50 ML PIGGYBACK IV (11:23)
[2024-07-10 11:38] LABS: Hemoglobin 13.6 g/dl (14.0-18.0); Mean Corpuscular HGB Conc 32.4 g/dl (31.0-36.0); Mean Corpuscular Hemoglobin 34.9 pg (27.0-33.0); Mean Corpuscular Volume 107.7 fL (80.0-98.0); Mean Platelet Volume 10.9 fL (9.4-12.4); Red Cell Distribution Width 16.4 % (11.0-16.0); White Blood Count 2.9 X10*3/uL (4.8-10.8)
[2024-07-10 11:43] LABS: VBG Base Excess -10.1 mmol/L; VBG HCO3 15 mmol/L (22-26); VBG pCO2 34 mmHg; VBG pH 7.26 (7.32-7.43); VBG pO2 39 mmHg
[2024-07-10 11:43] LABS: Platelet Count 79 X10*3/uL (160-400)
[2024-07-10 11:48] LABS: Venous Blood Gas Refer to POC result
[2024-07-10] MEDS: Acetaminophen 1,000 MG/100 ML PIGGYBACK 400 MG IV (11:58)
[2024-07-10 11:59] LABS: Lymphocytes Absolute Manual 0.5 X10*3/uL (1.2-4.9); Lymphocytes Percent Manual 18 % (20-40); Metamyelocytes Percent 1 %; Monocytes Absolute Manual 0.2 X10*3/uL (0.1-1.2); Monocytes Percent Manual 8 % (2-11); Neutrophils Absolute Manual 2.1 X10*3/uL (2.0-8.3); Neutrophils Percent Manual 31 % (45-73)
[2024-07-10 12:01] LABS: Acanthocytes 1+ (0-2) /OIF; Burr Cells 2+ (3-5) /OIF; Ovalocytes 2+ (15-30) /OIF; Platelet Estimate DECREASED (NORMAL); Platelet Morphology Comment NORMAL; RBC Morphology NOTED
[2024-07-10 12:04] LABS: Band Neutrophils Percent 42 % (3-5)
[2024-07-10 12:07] LABS: B Type Natriuretic Peptide 32 pg/mL (<100)
[2024-07-10 12:13] LABS: Troponin-I High Sensitivity 32.1 ng/L (<3.5-35.0)
[2024-07-10 12:19] LABS: Ammonia 27 umol/L (13-55)
[2024-07-10 12:20] LABS: Influenza A PCR NEGATIVE (Negative); Influenza B PCR NEGATIVE (Negative); Resp Syncy Virus RNA Qual PCR NEGATIVE (Negative); SARS COV2 PCR INHOUSE NEGATIVE (Negative)
[2024-07-10 12:30] LABS: Alanine Aminotransferase 21 U/L (0-40); Alkaline Phosphatase 41 U/L (39-117); Anion Gap 24 (12-20); Aspartate Amino Transferase 35 U/L (5-37); Bilirubin Total 0.7 mg/dL (0.0-1.0); Blood Urea Nitrogen 51 mg/dL (9-16); Calcium 9.4 mg/dL (8.4-10.2); Carbon Dioxide 15 mmol/L (22-29); Chloride 108 mmol/L (96-108); Creatinine Clr Calc Pharmacy 33.2; Estimated Glomerular Filt Rate 43; Glucose Random 170 mg/dL (60-115); Lipase 41 U/L (8-78); Magnesium 2.9 mg/dL (1.6-2.6); Potassium 5.5 mmol/L (3.3-5.1); Sodium 141 mmol/L (135-145); Total Protein 6.1 g/dL (6.5-8.0)
[2024-07-10] MEDS: vancomycin HCL 1,500 MG in 0.9 % Sodium Chloride 500 ML 333.33 MG IV (12:53)
[2024-07-10] MEDS: 0.9 % Sodium Chloride 1,677 ML 1677 ML IV (12:53)
--- OUTSIDE RECORDS SUMMARY | 2024-07-10 12:54 | XMS_ITS ---
Author Organization Markie Arroyo DO, FACP Address [address] [place], [place] [id number] Care Team Providers Care Hoe Worker Name Role Phone Markie Arroyo Primary Care [...] ce a day Active Vitamin D (Ergocalciferol) 81820 UNIT 1 capsule Orally Once a Week [...] Location Date Provider Diagnosis Markie Arroyo , [address] [phone] 04/13/2024 Markie Arroyo Malignant neoplasm o f [...] Subcutaneous Once a day Vitamin D (Ergocalciferol) 91565 UNIT 1 capsule Orally Once a Week [...]
--- OUTSIDE RECORDS SUMMARY | 2024-07-10 12:54 | XMS_ITS | Patient Health Record ---
Author Organization [facility] Address [address] [place] [address] Care Team Providers Care Rate Analyst Name Role Phone Cruz (RETIRED) Markie CELIS Primary Care Provid er Unavailable Sanju Colbert Jr Unavailable [phone] ALLERGIES Allergen (clinical drug ingredient) Drug/Non Drug [...] Problem Colon cancer screening (Z12.11) Active confirmed 730542030 Problem Personal history of colonic polyps (Z86.010) Active confirmed 238158219 Problem Encounter for other preprocedural examination (Z01.818) Active confirmed [id number] Encounters Encounter Location Date Provider Diagnosis [facility] [address] [place] [phone] 02/27/2024 Sanju Colbert Jr [facility] [address] [place] [phone] 02/21/2024 Sanju Colbert Jr PLAN OF TREATMENT Future Test Test Name Order Date COLONOSCOPY 06/26/2015 COLONOSCOPY 07/30/2020 Insurance Providers Payer Name Payer Address Payer Phone Subscriber Number Group Number Insured Name Patient Relationship to Insured Coverage Start Date Coverage End Date [facility] [address] [place] [address] [id number] RONALD HERRING Self - patient is the insured MEDICAL (GENERAL) HISTORY Medical History History ICD Code Bipolar disorder insomnia elevated cholesterol multiple sclerosis hypertension trigeminal neuralgia Surgical History Surgery Date(Month/Year) right knee surgery Glycerol Rhizotomy, right 07/2020
--- OUTSIDE RECORDS SUMMARY | 2024-07-10 12:54 | XMS_ITS ---
Author Organization [facility] Address [address] [place] [address] Care Team Providers Care Grease Maker Head Name Role Phone Cruz (RETIRED) Markie CELIS Primary Care Provid er Unavailable Sanju Colbert Jr Unavailable REASON FOR VISIT Patient presents today for a screening colon Encounters Encounter Location Date Provider Diagnosis [facility] [address] [place] [address] 02/27/2024 Sanju Colbert Jr PLAN OF TREATMENT No Information
--- OUTSIDE RECORDS SUMMARY | 2024-07-10 12:54 | XMS_ITS ---
Author Organization Markie Arroyo DO, FACP Address [address] [place], [place] [phone] Care Team Providers Care Shell Trim Operator Name Role Phone Markie Arroyo Primary Care Provider REASON FOR VISIT 6 week f/u Encounters Encounter Location Date Provider Diagnosis Markie Arroyo DO, FACP [address] [place], [place] [phone] 04/11/2024 Markie Arroyo PLAN OF TREATMENT No Information
--- OUTSIDE RECORDS SUMMARY | 2024-07-10 12:54 | XMS_ITS ---
Author Organization [facility] Address [address] [place] [address] Care Team Providers Care Race Board Attendant Name Role Phone Cruz (RETIRED) Markie CELIS Primary Care Provid er Unavailable Sanju Colbert Jr REASON FOR VISIT cancel appt Encounters Encounter Location Date Provider Diagnosis [facility] [address] [place] [address] 02/21/2024 Sanju Colbert Jr PLAN OF TREATMENT No Information
--- OUTSIDE RECORDS SUMMARY | 2024-07-10 12:54 | XMS_ITS ---
Author Organization Markie Arroyo DO, FACP Address [address] [place], [place] [phone] Care Team Providers Care Associate Buyer Name Role Phone Markie Arroyo Primary Care [...] ce a day Active Vitamin D (Ergocalciferol) 83607 UNIT 1 capsule Orally Once a Week [...] lobe of right lung (C34.11) Active confirmed [id number] VITAL SIGNS BMI 21.78 kg/m2 02/28/2024 Blood pressure systolic 122 mm Hg 02/28/20 24 Blood pressure diastolic 62 mm Hg 024 Height 62.75 in 02/28/2024 Weight 122 lbs 02/28/2024 Encounters Encounter Location Date Provider Diagnosis Markie Rodriguez Cruz DO, [facility] [address] [place], [place] [phone] 02/28/2024 Markie Boldenman Malignant neoplasm o f [...] Subcutaneous Once a day Vitamin D (Ergocalciferol) 46722 UNIT 1 capsule Orally Once a Week [...]
[2024-07-10] MEDS: Albuterol Sulfate 7.5 MG, Albuterol Sulfate (0.083%) 2.5 MG 10 MG INHALE (13:08)
[2024-07-10] MEDS: Calcium Gluconate/NaCl,Iso-Osm 1 GM/50 ML PLAST..BAG IV (13:30)
[2024-07-10 13:32] LABS: Reflex Lactate? Lactic Acid Added
--- NOTE | 2024-07-10 14:01 | PC.NURSE ---
repeat labs obtained/sent to lab by [employer] s/p IVF completion. pt remains hypotensive and tachycardic. pt remains on 2L via NC. no sob/wob noted. respirations even/unlabored. plan of care ongoing. call dixon placed within reach.
[2024-07-10 14:35] LABS: Anion Gap 17 (12-20)
[2024-07-10 14:42] LABS: Alanine Aminotransferase 8 U/L (0-40); Albumin Level 1.8 g/dL (3.5-5.0); Aspartate Amino Transferase 27 U/L (5-37); Bilirubin Total 0.5 mg/dL (0.0-1.0); Blood Urea Nitrogen 45 mg/dL (9-16); Calcium 7.5 mg/dL (8.4-10.2); Carbon Dioxide 15 mmol/L (22-29); Chloride 117 mmol/L (96-108); Creatinine Clr Calc Pharmacy 45.1; Estimated Glomerular Filt Rate > 60; Glucose Random 87 mg/dL (60-115); Potassium 5.5 mmol/L (3.3-5.1); Sodium 143 mmol/L (135-145); Total Protein 3.9 g/dL (6.5-8.0)
[2024-07-10 14:46] LABS: ~Lactic Acid-LAB USE ONLY 8.4 mmol/L (0.5-2.0)
[2024-07-10 15:06] LABS: Glucose, Whole Blood 77 mg/dL (60-115)
[2024-07-10] MEDS: Norepinephrine Bitartrate/D5W 8 MG/250 ML PLAST..BAG 5.24 MG IVCONT (15:19)
[2024-07-10] MEDS: Dextrose 50 % 25 GM/50 ML SYRINGE IVPUSH (15:19)
[2024-07-10] MEDS: Insulin Regular, Human 100 UNIT/ML 10 ML VIAL IVPUSH (15:19)
--- NOTE | 2024-07-10 15:26 | PC.NURSE ---
pt remains hypotensive and hyperkalemic despite previous interventions. pt started on norepinephrine @ 0.05 mcg/kg/min. POC obtained prior to IVP insulin/dextrose administration. POC = 77mg/dL. medication administered per provider order. pt otherwise remains sinus tachycardic on the monitor. denies chest pain/palpitations. pt remains on 4L via NC at this time. no sob/wob noted. respirations even/unlabored. pt accepted to [facility]'s ICU. ETA for transfer unknown. daughter remains bedside for support. plan of care ongoing. call dixon placed within reach.
[2024-07-10 15:59] LABS: Glucose, Whole Blood 136 mg/dL (60-115)
[2024-07-10 16:00] LABS: Troponin-I High Sensitivity 42.1 ng/L (<3.5-35.0)
[2024-07-10 16:08] LABS: Reflex Lactate? 2 Y
--- NOTE | 2024-07-10 16:56 | PC.NURSE ---
Addendum entered by Florecita Hackett 07/10/24 17:01: 0.07mcg/kg/min* Original Note: pt noted to have MAP < 65 at this time. norepinephrine drip titrated per [facility] protocol. norepi now infusing @ 0./07 mcg/kg/min at this time. effectiveness pending. pt otherwise remains tachycardic. on 4L via NC - no sob/wob noted. respirations even/unlabored. p continues to pend transfer to [facility] ICU. family bedside for support.
[2024-07-10 17:09] LABS: Alkaline Phosphatase 24 U/L (39-117)
--- NOTE | 2024-07-10 17:16 | PC.NURSE ---
report given to SANDRO barrios at this time. attempted to call [facility]'s ICU at this time but there was no answer. will reattempt shortly. pt being transported w/ norephinephine infusing @ 0.09mcg/kg/min.
--- NOTE | 2024-07-10 17:20 | PC.NURSE ---
pt titrated to 0.11 mcg/kg/min prior to d/c d/t MAP < 65. attempted to call [employer] for a second time to complete nurse to nurse but still no response at this time.
[2024-07-10 17:31] LABS: ~Lactic Acid-LAB USE ONLY 7.8 mmol/L (0.5-2.0)
== END 2024-07-10 18:07 | disposition short-term general hospital (02) ==
PROVIDERS: Physician Assistant Medical; Emergency Provider Emergency Medicine
DX: J18.9 Pneumonia, unspecified organism (principal); E87.21 Acute metabolic acidosis; C34.90 Malignant neoplasm of unspecified part of unspecified bronchus or lung; C79.31 Secondary malignant neoplasm of brain; R00.0 Tachycardia, unspecified; R06.02 Shortness of breath; I95.9 Hypotension, unspecified; N17.9 Acute kidney failure, unspecified; R11.0 Nausea; D69.6 Thrombocytopenia, unspecified; F17.210 Nicotine dependence, cigarettes, uncomplicated; Z79.899 Other long term (current) drug therapy; Z03.818 Encounter for observation for suspected exposure to other biological agents ruled out
CPT/HCPCS: 0241U; 71045; 80053; 82140; 82550; 82803; 82947; 83605; 83690; 83735; 83880; 84484; 85007; 85027; 87040; 87077; 87205; 93005; 94640; 96361; 96365; 96366; 96367; 96368; 96375; 99285; 99291; J0131; J0613; J0692; J3371

== ENCOUNTER → 2024-07-10 10:57 | Outpatient (BNV) | payer MEDICARE, SELFPAY | PROVIDERS: Emergency Provider Emergency Medicine; Visit Provider Internal Medicine Cardiovascular Disease | DX: R00.0 Tachycardia, unspecified (principal); I45.0 Right fascicular block | CPT/HCPCS: 93010 ==

== ENCOUNTER → 2024-07-10 12:37 | Outpatient (BNV) | payer MEDICARE, SELFPAY | PROVIDERS: Emergency Provider Emergency Medicine; Visit Provider Radiology Diagnostic Radiology | DX: R06.02 Shortness of breath (principal) | CPT/HCPCS: 71045 ==